=== PATIENT | female | born 1950 | race Caucasian/White ===

== ENCOUNTER 2019-10-31 10:27 | Outpatient (CLI) | payer MEDICARE, BC, SELFPAY ==
[2019-10-31 11:05] LABS: Alanine Aminotransferase 37 U/L (4-35); Albumin Level 4.3 g/dL (3.5-5.1); Alkaline Phosphatase 80 U/L (38-126); Aspartate Amino Transferase 35 U/L (14-36); Bilirubin,Total 0.3 mg/dL (0.2-1.3); Blood Urea Nitrogen 28 mg/dL (7-17); Calcium 9.4 mg/dL (8.4-10.2); Carbon Dioxide 25 mmol/L (22-30); Chloride 104 mmol/L (98-107); Cholesterol 183 mg/dL (0-200); Estimated Glomerular Filt Rate 44; Glucose 206 mg/dL (65-105); HDL Direct 41 mg/dL; Potassium 4.7 mmol/L (3.4-5.0); Sodium 136 mmol/L (137-145); Triglycerides 210 mg/dL (<150)
[2019-10-31 11:16] LABS: LDL Cholesterol Direct 109 mg/dL
[2019-10-31 11:17] LABS: Parathyroid Intact 60.8 pg/mL (7.5-53.5)
[2019-10-31 11:22] LABS: Creatinine Urine 130.2 mg/dL
[2019-10-31 11:29] LABS: MALB Creatinine Ratio 16.3 mg/g (0-30); Microalbumin Urine Random 21.2 mg/L (0-16.7)
[2019-11-02 15:23] LABS: Glutamic acid decarboxylase AA <5 IU/mL (<5)
[2019-11-04 21:56] LABS: Zinc Transporter 8 Antibody <10 U/mL (<15)
[2019-11-07 23:51] LABS: Islet Cell Antibody Screen NEGATIVE (NEGATIVE)
== END 2019-10-31 10:28 | disposition home or self-care (01) ==
PROVIDERS: PCP Internal Medicine; Visit Provider Internal Medicine Endocrinology, Diabetes & Metabolism
DX: E11.9 Type 2 diabetes mellitus without complications (principal); M85.80 Other specified disorders of bone density and structure, unspecified site
CPT/HCPCS: 36415; 80053; 80061; 82043; 82306; 83970; 84681; 86337; 86341

== ENCOUNTER 2020-02-16 14:56 | Outpatient (CLI) | payer MEDICARE, SELFPAY ==
--- NOTE | ~2020-02-16 | MM_ITS ---
EXAMINATION: MM screening wilma BI w ronny HISTORY: Screening TECHNIQUE: Craniocaudal and mediolateral oblique 3-D tomosynthesis images were obtained and synthetic 2-D images were generated. CAD analysis was submitted and interpreted. COMPARISON: Comparison to multiple prior studies sequentially, with oldest reviewed study dated 11/29. BREAST PARENCHYMAL COMPOSITION: There are scattered areas of fibroglandular density. FINDINGS: There is no evidence of suspicious mass, calcification, or architectural distortion to sugg est malignancy in either breast. There has been no suspicious interval change. IMPRESSION: 1. No mammographic evidence of malignancy. 2. Recommend routine screening mammography in one year. BI-RADS Category 1: Negative Reviewed, dictated and finalized at location A.
--- NOTE | ~2020-02-16 | DEXA_ITS ---
Bone Density Report Name: Stella Qureshi Age: 69 Sex: Female Ethnicity: White Date of : 1950 Indication: osteopenia; height loss; Referring Provider: Kristen Lafleur Study: Bone densitometry was performed. Exam Date: February 16, 2020 Accession number: [id number] Bone Density: Region BMD T-score Z-score Classification AP Spine (L1-L4) 1.056 0.1 2.3 Normal Femoral Neck (Left) 0.679 -1.5 0.4 Osteopenia Total Hip (Left) 0.689 -2.1 -0.5 Osteopenia Total Hip Bilateral Avg 0.718 -1.8 -0.3 Osteopenia Femoral Neck (Right) 0.581 -2.4 -0.5 Osteopenia Total Hip (Right) 0.747 -1.6 0.0 Osteopenia World Health Organization criteria for BMD impression classify patients as: Normal (T-score at or above -1.0), Osteopenia (T-score between -1.0 and -2.5), or Osteoporosis (T-score at or below -2.5). 10-year Fracture Risk(1): Major Osteoporotic Fracture 14% Hip Fracture 3.6% Reported Risk Factors: [place] (), Neck BMD=0.581, BMI=26.7 (1) FRAX(R) Version 3.08. Fracture probability calculated for an untreated patient. Fracture probability may be lower if the patient has received treatment. Previous Exams: Region Exam Age BMD T-score BMD Change BMD Change Date g/cm2 vs Baseline vs Previous AP Spine(L1-L4) 02/16/2020 69 1.056 0.1 0.089(9.2%)# 0.089(9.2%)# 02/07/2007 56 0.966 -0.7 Total Hip(Left) 02/16/2020 69 0.689 -2.1 0.013(1.9%)# 0.013(1.9%)# 02/07/2007 56 0.676 -2.2 Total Hip(Right) 02/16/2020 69 0.747 -1.6 0.045(6.4%)# 0.045(6.4%)# 02/07/2007 56 0.703 -2.0 *Denotes significance at 95% confidence level, LSC for AP Spine = 0.022 g/cm2, LSC for Total Hip = 0.027 g/cm2 Clinical Information Provided by Patient: Has used the following medications: Vitamin D, Calcium Patient maximum height was 64 Menopause Age: 48 No regular weight bearing exercise Onset of menses at age 12 Number of children 0 Impression: The patient has low bone mass, based on the Right Femoral Neck T-score. The patient has an estimated ten-year risk of hip fracture of 3.6% and an estimated ten-year risk of major fracture of 14%, based on the WHO FRAX algorithm. No significant bone loss was observed. Discussion: BONE DENSITY IS LOW AT ONE OR MORE SKELETAL SITES. THE PATIENT'S BMD AND CLINICAL RISK FACTORS CONTRIBUTE TO THIS PATIENT'S INCREASED RISK OF FRACTURE. This patient's lowest T-score is low at one or more skeletal sites. It meets the W
[2020-02-16 15:53] LABS: Anion Gap 8 mmol/L (8-16); Blood Urea Nitrogen 18 mg/dL (7-17); Calcium 9.4 mg/dL (8.4-10.2); Carbon Dioxide 27 mmol/L (22-30); Chloride 101 mmol/L (98-107); Estimated Glomerular Filt Rate 44; Glucose 211 mg/dL (65-105); Potassium 4.4 mmol/L (3.4-5.0); Sodium 136 mmol/L (137-145)
[2020-02-16 16:05] LABS: Parathyroid Intact 39.7 pg/mL (7.5-53.5)
== END 2020-02-16 14:57 | disposition home or self-care (01) ==
PROVIDERS: Internal Medicine Endocrinology, Diabetes & Metabolism; PCP Internal Medicine; Visit Provider Nurse Practitioner
DX: Z12.31 Encounter for screening mammogram for malignant neoplasm of breast (principal); M85.88 Other specified disorders of bone density and structure, other site; E11.9 Type 2 diabetes mellitus without complications; N17.9 Acute kidney failure, unspecified; R79.89 Other specified abnormal findings of blood chemistry
CPT/HCPCS: 36415; 77063; 77067; 77080; 80048; 83970

== ENCOUNTER 2020-05-28 09:10 | Outpatient (CLI) | payer MEDICARE, BC, SELFPAY ==
[2020-05-28 09:48] LABS: Basophils Percent Auto 0.4 % (0.2-1.2); Eosinophils Absolute Auto 0.1 K/mm3 (0-0.3); Eosinophils Percent Auto 1.2 % (0-4.4); Immature Granulocyte Absolute 0.02 K/mm3 (0.00-0.031); Immature Granulocyte Percent A 0.3 % (0-0.5); Lymphocytes Absolute Auto 1.22 K/mm3 (0.9-3.2); Lymphocytes Percent Auto 16.9 % (18.3-44.2); Mean Corpuscular HGB Conc 31.7 g/dl (32-36); Mean Corpuscular Hemoglobin 24.5 pg (26-34); Mean Corpuscular Volume 77.4 fl (80-100); Mean Platelet Volume 10.9 fl (7.4-10.4); Monocytes Absolute Auto 0.5 K/mm3 (0.1-0.6); Monocytes Percent Auto 6.6 % (2.6-8.5); Neutrophils Absolute Auto 5.4 K/mm3 (1.3-6.7); Neutrophils Percent Auto 74.6 % (45.5-73.1); Platelet Count Result 179 k/mm3 (150-375); Red Cell Distribution Width 14.4 % (11.5-14.5); White Blood Count 7.2 K/mm3 (4.5-10.0)
[2020-05-28 10:06] LABS: Anion Gap 5 mmol/L (8-16); Blood Urea Nitrogen 16 mg/dL (7-17); Calcium 9.6 mg/dL (8.4-10.2); Carbon Dioxide 32 mmol/L (22-30); Chloride 101 mmol/L (98-107); Estimated Glomerular Filt Rate 40; Glucose 188 mg/dL (65-105); Potassium 4.1 mmol/L (3.4-5.0); Sodium 138 mmol/L (137-145)
[2020-05-28 10:15] LABS: LDL Cholesterol Direct 140 mg/dL
[2020-05-28 10:16] LABS: Alanine Aminotransferase 35 U/L (4-35); Albumin Level 4.1 g/dL (3.5-5.1); Alkaline Phosphatase 70 U/L (38-126); Anion Gap 5 mmol/L (8-16); Aspartate Amino Transferase 37 U/L (14-36); Bilirubin,Total 0.4 mg/dL (0.2-1.3); Blood Urea Nitrogen 15 mg/dL (7-17); Calcium 9.7 mg/dL (8.4-10.2); Carbon Dioxide 32 mmol/L (22-30); Chloride 101 mmol/L (98-107); Cholesterol 222 mg/dL (0-200); Estimated Glomerular Filt Rate 40; Glucose 191 mg/dL (65-105); HDL Direct 39 mg/dL; Sodium 138 mmol/L (137-145); Triglycerides 247 mg/dL (<150)
[2020-05-28 10:21] LABS: Potassium 3.9 mmol/L (3.4-5.0)
[2020-05-28 10:53] LABS: Vitamin D 25 Hydroxy 57.8 ng/mL
== END 2020-05-28 09:11 | disposition home or self-care (01) ==
LOC: ANHLAB 09:13
PROVIDERS: Internal Medicine Endocrinology, Diabetes & Metabolism; PCP Internal Medicine; Visit Provider Nurse Practitioner
DX: M81.0 Age-related osteoporosis without current pathological fracture (principal); M85.80 Other specified disorders of bone density and structure, unspecified site; E78.2 Mixed hyperlipidemia; E11.9 Type 2 diabetes mellitus without complications
CPT/HCPCS: 36415; 80048; 80053; 80061; 82306; 85025

== ENCOUNTER 2020-07-17 09:14 | Outpatient (CLI) | payer MEDICARE, SELFPAY ==
[2020-07-17 10:04] LABS: Hematocrit 37.4 % (37.0-47.0); Hemoglobin 11.8 g/dL (12.0-15.0); Mean Corpuscular HGB Conc 31.6 g/dl (32-36); Mean Corpuscular Hemoglobin 24.2 pg (26-34); Mean Corpuscular Volume 76.6 fl (80-100); Mean Platelet Volume 10.4 fl (7.4-10.4); Platelet Count Result 156 k/mm3 (150-375); Red Blood Count 4.88 M/mm3 (4.2-5.4); Red Cell Distribution Width 15.6 % (11.5-14.5)
[2020-07-17 10:19] LABS: Albumin Level 3.9 g/dL (3.5-5.1); Anion Gap 8 mmol/L (8-16); Blood Urea Nitrogen 20 mg/dL (7-17); Calcium 10.5 mg/dL (8.4-10.2); Carbon Dioxide 29 mmol/L (22-30); Chloride 102 mmol/L (98-107); Estimated Glomerular Filt Rate 37; Glucose 149 mg/dL (65-105); Phosphorus 4.4 mg/dL (2.5-4.5); Potassium 4.2 mmol/L (3.4-5.0); Sodium 139 mmol/L (137-145)
[2020-07-17 10:27] LABS: Complement C3 142 mg/dL (88-165)
[2020-07-17 10:31] LABS: Parathyroid Intact 5.4 pg/mL (7.5-53.5)
[2020-07-17 10:35] LABS: Erythrocyte Sedimentation Rate 26 mm/hr (0-20)
[2020-07-17 10:51] LABS: Cortisol Random 8.69 ug/dL
[2020-07-17 16:15] LABS: Add Urine Microscopic? YES; Appearance Urine Clear (Clear); Bilirubin Urine Negative (Negative); Blood Urine Negative (Negative); Calcium Oxalate Crystals Urine Present /hpf; Color Urine Yellow (Yellow); Glucose Urine UA Negative (Negative); Hyaline Casts Urine 30-49 /lpf; Ketones Urine Negative (Negative); Leukocyte Esterase Ur Trace LEU/UL (NEGATIVE); Mucus Urine Rare /lpf; Nitrate Urine Negative (Negative); Protein Urine Negative (Negative); RBC Urine 0-2 /hpf (0-2); Specific Grav Ur 1.013 (1.001-1.035); Squamous Epithelial Cell Urine Occasional /hpf (Few); Urobilinogen Urine Negative mg/dL (<2.0)
[2020-07-17 17:42] LABS: Total Protein Urine Random 14 mg/dL
[2020-07-19 10:52] LABS: Kappa\\Lambda Light Chains 1.75 (0.26-1.65)
[2020-07-19 14:06] LABS: Complement Total CH50 >60 U/mL (31-60)
== END 2020-07-17 09:15 | disposition home or self-care (01) ==
PROVIDERS: PCP Internal Medicine; Referring Provider Internal Medicine; Visit Provider Internal Medicine Nephrology
DX: N18.32 Chronic kidney disease, stage 3b (principal); I95.1 Orthostatic hypotension; R53.83 Other fatigue
CPT/HCPCS: 36415; 80069; 81001; 81050; 82533; 83883; 83970; 84156; 84443; 85027; 85652; 86038; 86160; 86162; 86334

== ENCOUNTER 2020-07-20 10:04 | Outpatient (NON) | payer MEDICARE, BC, SELFPAY ==
[2020-08-07 10:03] LABS: Albumin 0 %; Creat 24 Hr 0.91 g/24 h (0.50-2.15); Measured Kappa Chains <0.40 mg/dL (<2.00); Measured Lambda Chains <0.40 mg/dL (<2.00)
== END 2020-07-20 10:05 ==
PROVIDERS: PCP Internal Medicine; Visit Provider Internal Medicine Nephrology
DX: N18.32 Chronic kidney disease, stage 3b (principal); I95.1 Orthostatic hypotension
CPT/HCPCS: 82570; 83883; 86335

== ENCOUNTER 2020-08-09 07:25 | Outpatient (CLI) | payer MEDICARE, BC, SELFPAY ==
--- NOTE | ~2020-08-09 | US_ITS ---
EXAMINATION: US renal BI EXAM DATE: 08/09/2020 08:00 INDICATION: Stage III kidney disease. TECHNIQUE: Multiple grayscale and Doppler images of the kidneys were obtained (by a technologist who performed the scan) and subsequently reviewed. Comparison is made to prior examination from 8. FINDINGS: There is bilateral renal cortical thinning. Right kidney: There is normal contour and echogenicity. It measures 8.6 x 4.6 x 4.4 centimeters. Th ere are no focal renal lesions identified. There is no hydronephrosis. Left kidney: There is normal contour and echogenicity. It measures 7.9 x 4.5 x 4.4 centimeters. The re are no focal renal lesions identified. There is no hydronephrosis. Bladder unremarkable. IMPRESSION: 1. Mild bilateral renal atrophy. Reviewed, dictated and finalized at location B. GER CONCRETE
[2020-08-09 08:33] LABS: Albumin Level 3.9 g/dL (3.5-5.1); Anion Gap 7 mmol/L (8-16); Blood Urea Nitrogen 19 mg/dL (7-17); Calcium 9.4 mg/dL (8.4-10.2); Carbon Dioxide 31 mmol/L (22-30); Chloride 101 mmol/L (98-107); Estimated Glomerular Filt Rate 44; Glucose 148 mg/dL (65-105); Phosphorus 3.4 mg/dL (2.5-4.5); Potassium 4.4 mmol/L (3.4-5.0); Sodium 139 mmol/L (137-145)
[2020-08-14 05:05] LABS: Angiotensin Converting Enzyme 39 U/L (9-67)
== END 2020-08-09 07:26 | disposition home or self-care (01) ==
PROVIDERS: PCP Internal Medicine; Visit Provider Internal Medicine Nephrology
DX: N18.32 Chronic kidney disease, stage 3b (principal)
CPT/HCPCS: 36415; 76775; 80069; 82164

== ENCOUNTER 2020-09-25 08:31 | Outpatient (CLI) | payer MEDICARE, SELFPAY | END 2020-09-25 08:32 | disposition home or self-care (01) | LOC: ANHCOVIDVC 08:31 | PROVIDERS: PCP Internal Medicine | DX: Z23 Encounter for immunization (principal) | CPT/HCPCS: 0001A; 91300 ==

== ENCOUNTER 2020-10-08 15:02 | Outpatient (CLI) | payer MEDICARE, SELFPAY ==
[2020-10-08 16:04] LABS: Hematocrit 36.7 % (37.0-47.0); Hemoglobin 11.4 g/dL (12.0-15.0); Mean Corpuscular HGB Conc 31.1 g/dl (32-36); Mean Corpuscular Hemoglobin 24.1 pg (26-34); Mean Corpuscular Volume 77.4 fl (80-100); Mean Platelet Volume 10.3 fl (7.4-10.4); Platelet Count Result 143 k/mm3 (150-375); Red Blood Count 4.74 M/mm3 (4.2-5.4); White Blood Count 7.9 K/mm3 (4.5-10.0)
[2020-10-08 16:09] LABS: Add Urine Microscopic? YES; Appearance Urine Clear (Clear); Bilirubin Urine Negative (Negative); Blood Urine Negative (Negative); Color Urine Straw (Yellow); Glucose Urine UA Negative (Negative); Ketones Urine Negative (Negative); Leukocyte Esterase Ur Trace LEU/UL (Negative); Mucus Urine Rare /lpf; Nitrate Urine Negative (Negative); Protein Urine Negative (Negative); RBC Urine 0-2 /hpf (0-2); Squamous Epithelial Cell Urine Occasional /hpf (Few); Urobilinogen Urine Negative mg/dL (<2.0); WBC Urine 0-3 /hpf
[2020-10-08 16:20] LABS: Complement C3 130 mg/dL (88-165)
[2020-10-08 16:39] LABS: Erythrocyte Sedimentation Rate 24 mm/hr (0-20)
[2020-10-08 16:44] LABS: Cortisol Random 4.55 ug/dL
[2020-10-08 16:57] LABS: Anion Gap 5 mmol/L (8-16); Blood Urea Nitrogen 19 mg/dL (7-17); Calcium 9.3 mg/dL (8.4-10.2); Carbon Dioxide 28 mmol/L (22-30); Chloride 104 mmol/L (98-107); Estimated Glomerular Filt Rate 44; Glucose 122 mg/dL (65-105); Phosphorus 3.6 mg/dL (2.5-4.5); Potassium 4.4 mmol/L (3.4-5.0); Sodium 137 mmol/L (137-145)
[2020-10-08 17:08] LABS: Creatinine Urine 65.1 mg/dL; Total Protein Urine Random 12 mg/dL; Ur Ttl Prot Creatinine Ratio 0.18 mg/mg (0-0.20)
[2020-10-08 17:12] LABS: Parathyroid Intact 32.8 pg/mL (7.5-53.5)
[2020-10-08 17:30] LABS: Thyroid Stimulating Hormone 0.931 uIU/mL (0.465-4.680)
[2020-10-10 10:32] LABS: Complement Total CH50 >60 U/mL (31-60)
[2020-10-10 23:16] LABS: Kappa\\Lambda Light Chains 1.35 (0.26-1.65); Lambda Light Chain 30.2 mg/L (5.7-26.3)
== END 2020-10-08 15:03 | disposition home or self-care (01) ==
PROVIDERS: PCP Internal Medicine; Visit Provider Internal Medicine Nephrology
DX: N18.32 Chronic kidney disease, stage 3b (principal); I95.1 Orthostatic hypotension; R53.83 Other fatigue
CPT/HCPCS: 36415; 80069; 81001; 82533; 82570; 83883; 83970; 84156; 84443; 85027; 85652; 86038; 86160; 86162; 86334

== ENCOUNTER 2020-10-10 08:56 | Outpatient (CLI) | payer MEDICARE, SELFPAY | END 2020-10-10 08:57 | disposition home or self-care (01) | LOC: ANHLAB 08:58 | PROVIDERS: PCP Internal Medicine; Visit Provider Internal Medicine Nephrology | DX: N18.32 Chronic kidney disease, stage 3b (principal); I95.1 Orthostatic hypotension | CPT/HCPCS: 86335 ==

== ENCOUNTER 2020-10-16 08:26 | Outpatient (CLI) | payer MEDICARE, BC, SELFPAY | END 2020-10-16 08:27 | LOC: ANHCOVIDVC 08:27 | PROVIDERS: PCP Internal Medicine | DX: Z23 Encounter for immunization (principal) | CPT/HCPCS: 0002A; 91300 ==

== ENCOUNTER 2020-10-29 08:12 | Outpatient (CLI) | payer MEDICARE, SELFPAY | END 2020-10-29 08:13 | disposition home or self-care (01) | LOC: ANHVASCINF 08:15 | PROVIDERS: PCP Internal Medicine; Visit Provider Internal Medicine Nephrology | DX: R94.7 Abnormal results of other endocrine function studies (principal); I95.1 Orthostatic hypotension | CPT/HCPCS: 36415; 82533; 96372; J0834 ==

== ENCOUNTER 2021-02-26 08:51 | Outpatient (CLI) | payer MEDICARE, SELFPAY ==
[2021-02-26 09:44] LABS: Hematocrit 41.2 % (37.0-47.0); Hemoglobin 12.7 g/dL (12.0-15.0); Mean Corpuscular HGB Conc 30.8 g/dl (32-36); Mean Corpuscular Hemoglobin 23.9 pg (26-34); Mean Corpuscular Volume 77.4 fl (80-100); Mean Platelet Volume 10.2 fl (7.4-10.4); Platelet Count Result 174 k/mm3 (150-375); Red Blood Count 5.32 M/mm3 (4.2-5.4); Red Cell Distribution Width 16.2 % (11.5-14.5); White Blood Count 8.9 K/mm3 (4.5-10.0)
[2021-02-26 10:11] LABS: Total Protein Urine Random 12 mg/dL; Ur Ttl Prot Creatinine Ratio 0.19 mg/mg (0-0.20)
[2021-02-26 10:16] LABS: Albumin Level 4.4 g/dL (3.5-5.1); Anion Gap 10 mmol/L (8-16); Blood Urea Nitrogen 18 mg/dL (7-17); Calcium 9.9 mg/dL (8.4-10.2); Carbon Dioxide 27 mmol/L (22-30); Chloride 105 mmol/L (98-107); Estimated Glomerular Filt Rate 44; Glucose 118 mg/dL (65-110); Potassium 4.7 mmol/L (3.4-5.0); Sodium 142 mmol/L (137-145)
[2021-02-26 10:26] LABS: Parathyroid Intact 83.9 pg/mL (7.5-53.5)
== END 2021-02-26 08:52 | disposition home or self-care (01) ==
PROVIDERS: PCP Internal Medicine; Visit Provider Internal Medicine Nephrology
DX: N18.32 Chronic kidney disease, stage 3b (principal)
CPT/HCPCS: 36415; 80069; 82570; 83970; 84156; 85027

== ENCOUNTER 2021-06-18 09:27 | Outpatient (CLI) | payer MEDICARE, SELFPAY ==
[2021-06-18 09:55] LABS: Basophils Percent Auto 0.4 % (0.2-1.2); Eosinophils Absolute Auto 0.1 K/mm3 (0-0.3); Hematocrit 38.7 % (37.0-47.0); Hemoglobin 12.3 g/dL (12.0-15.0); Immature Granulocyte Absolute 0.04 K/mm3 (0.00-0.031); Immature Granulocyte Percent A 0.5 % (0-0.5); Lymphocytes Absolute Auto 1.75 K/mm3 (0.9-3.2); Lymphocytes Percent Auto 20.9 % (18.3-44.2); Mean Corpuscular HGB Conc 31.8 g/dl (32-36); Mean Corpuscular Hemoglobin 24.2 pg (26-34); Mean Corpuscular Volume 76.2 fl (80-100); Mean Platelet Volume 9.9 fl (7.4-10.4); Monocytes Absolute Auto 0.5 K/mm3 (0.1-0.6); Monocytes Percent Auto 5.4 % (2.6-8.5); Neutrophils Percent Auto 71.8 % (45.5-73.1); Platelet Count Result 163 k/mm3 (150-375); Red Blood Count 5.08 M/mm3 (4.2-5.4); Red Cell Distribution Width 15.6 % (11.5-14.5); White Blood Count 8.4 K/mm3 (4.5-10.0)
[2021-06-18 10:03] LABS: Cholesterol 140 mg/dL (0-200); HDL Direct 39 mg/dL; Triglycerides 110 mg/dL (<150)
[2021-06-18 10:04] LABS: Alanine Aminotransferase 32 U/L (4-35); Albumin Level 4.1 g/dL (3.5-5.1); Alkaline Phosphatase 87 U/L (38-126); Anion Gap 10 mmol/L (8-16); Aspartate Amino Transferase 34 U/L (14-36); Bilirubin,Total 0.5 mg/dL (0.2-1.3); Blood Urea Nitrogen 15 mg/dL (7-17); Calcium 9.5 mg/dL (8.4-10.2); Carbon Dioxide 29 mmol/L (22-30); Chloride 102 mmol/L (98-107); Estimated Glomerular Filt Rate 44; Glucose 102 mg/dL (65-110); Potassium 4.1 mmol/L (3.4-5.0); Sodium 141 mmol/L (137-145)
[2021-06-18 10:23] LABS: LDL Cholesterol Direct 75 mg/dL
[2021-06-18 10:34] LABS: Iron 41 ug/dL (37-170)
[2021-06-18 10:44] LABS: Percent Iron Saturation 11 % (20-50)
== END 2021-06-18 09:28 | disposition home or self-care (01) ==
PROVIDERS: PCP Internal Medicine; Referring Provider Clinical Nurse Specialist; Visit Provider Internal Medicine Endocrinology, Diabetes & Metabolism
DX: I10 Essential (primary) hypertension (principal); N18.32 Chronic kidney disease, stage 3b; E11.21 Type 2 diabetes mellitus with diabetic nephropathy; E11.9 Type 2 diabetes mellitus without complications; R42 Dizziness and giddiness; E11.65 Type 2 diabetes mellitus with hyperglycemia; M85.851 Other specified disorders of bone density and structure, right thigh; M85.852 Other specified disorders of bone density and structure, left thigh; R79.89 Other specified abnormal findings of blood chemistry
CPT/HCPCS: 36415; 80053; 80061; 82306; 82607; 82728; 83540; 83550; 85025

== ENCOUNTER 2021-08-19 15:27 | Outpatient (CLI) | payer MEDICARE, SELFPAY ==
[2021-08-19 16:24] LABS: Hematocrit 35.1 % (37.0-47.0); Hemoglobin 10.7 g/dL (12.0-15.0); Mean Corpuscular HGB Conc 30.5 g/dl (32-36); Mean Corpuscular Hemoglobin 23.9 pg (26-34); Mean Corpuscular Volume 78.3 fl (80-100); Mean Platelet Volume 10.5 fl (7.4-10.4); Platelet Count Result 148 k/mm3 (150-375); Red Blood Count 4.48 M/mm3 (4.2-5.4); Red Cell Distribution Width 15.4 % (11.5-14.5); White Blood Count 7.1 K/mm3 (4.5-10.0)
[2021-08-19 16:33] LABS: Creatinine Urine 60.7 mg/dL; Total Protein Urine Random 13 mg/dL; Ur Ttl Prot Creatinine Ratio 0.21 mg/mg (0-0.20)
[2021-08-19 16:38] LABS: Albumin Level 3.8 g/dL (3.5-5.1); Anion Gap 8 mmol/L (8-16); Blood Urea Nitrogen 17 mg/dL (7-17); Carbon Dioxide 28 mmol/L (22-30); Chloride 102 mmol/L (98-107); Estimated Glomerular Filt Rate 49; Glucose 170 mg/dL (65-110); Phosphorus 3.6 mg/dL (2.5-4.5); Potassium 4.1 mmol/L (3.4-5.0); Sodium 138 mmol/L (137-145)
[2021-08-19 16:49] LABS: Parathyroid Intact 45.3 pg/mL (7.5-53.5)
== END 2021-08-19 15:28 | disposition home or self-care (01) ==
LOC: ANHLAB 15:30
PROVIDERS: PCP Internal Medicine; Visit Provider Internal Medicine Nephrology
DX: N18.32 Chronic kidney disease, stage 3b (principal)
CPT/HCPCS: 36415; 80069; 82570; 83970; 84156; 85027

== ENCOUNTER 2022-02-24 15:21 | Outpatient (CLI) | payer MEDICARE, SELFPAY ==
[2022-02-24 15:59] LABS: Hematocrit 38.8 % (37.0-47.0); Hemoglobin 11.8 g/dL (12.0-15.0); Mean Corpuscular HGB Conc 30.4 g/dl (32-36); Mean Corpuscular Hemoglobin 23.2 pg (26-34); Mean Corpuscular Volume 76.4 fl (80-100); Mean Platelet Volume 9.7 fl (7.4-10.4); Platelet Count Result 159 k/mm3 (150-375); Red Blood Count 5.08 M/mm3 (4.2-5.4); Red Cell Distribution Width 16.3 % (11.5-14.5); White Blood Count 8.2 K/mm3 (4.5-10.0)
[2022-02-24 16:07] LABS: Creatinine Urine 64.4 mg/dL; Total Protein Urine Random 10 mg/dL; Ur Ttl Prot Creatinine Ratio 0.16 mg/mg (0-0.20)
[2022-02-24 16:09] LABS: Albumin Level 4.3 g/dL (3.5-5.1); Anion Gap 14 mmol/L (8-16); Blood Urea Nitrogen 20 mg/dL (7-17); Calcium 9.1 mg/dL (8.4-10.2); Carbon Dioxide 27 mmol/L (22-30); Chloride 101 mmol/L (98-107); Estimated Glomerular Filt Rate 49; Glucose 79 mg/dL (65-110); Phosphorus 3.5 mg/dL (2.5-4.5); Potassium 4.6 mmol/L (3.4-5.0); Sodium 142 mmol/L (137-145)
== END 2022-02-24 15:22 | disposition home or self-care (01) ==
LOC: ANHLAB 15:23
PROVIDERS: PCP Internal Medicine; Visit Provider Internal Medicine Nephrology
DX: N18.31 Chronic kidney disease, stage 3a (principal)
CPT/HCPCS: 36415; 80069; 82570; 83970; 84156; 85027

== ENCOUNTER 2022-03-04 15:00 | Outpatient (CLI) | payer MEDICARE, SELFPAY ==
[2022-03-04 15:28] LABS: Appearance Urine Slightly Cloudy (Clear); Bilirubin Urine Negative (Negative); Blood Urine Negative (Negative); Color Urine Yellow (Yellow); Glucose Urine UA Negative (Negative); Ketones Urine Negative (Negative); Leukocyte Esterase Ur Trace LEU/UL (Negative); Nitrate Urine Negative (Negative); Protein Urine Negative (Negative); Specific Grav Ur 1.015 (1.001-1.035); Urobilinogen Urine 0.2 mg/dL (<2.0)
[2022-03-04 15:35] LABS: Bacteria Urine Trace /hpf; Mucus Urine Rare /lpf; RBC Urine 0-2 /hpf (0-2); Squamous Epithelial Cell Urine Rare /hpf (Few)
[2022-03-04 15:38] LABS: Add Urine Microscopic? YES
== END 2022-03-04 15:01 | disposition home or self-care (01) ==
PROVIDERS: PCP Internal Medicine; Visit Provider Internal Medicine Nephrology
DX: N18.31 Chronic kidney disease, stage 3a (principal)
CPT/HCPCS: 81001

== ENCOUNTER 2022-03-17 15:35 | Outpatient (CLI) | payer MEDICARE, SELFPAY ==
[2022-03-17 16:09] LABS: Appearance Urine Clear (Clear); Bilirubin Urine Negative (Negative); Blood Urine Negative (Negative); Color Urine Yellow (Yellow); Glucose Urine UA Negative (Negative); Ketones Urine Negative (Negative); Leukocyte Esterase Ur 1+ LEU/UL (Negative); Nitrate Urine Negative (Negative); Protein Urine Negative (Negative); Specific Grav Ur 1.015 (1.001-1.035); Urobilinogen Urine 0.2 mg/dL (<2.0)
[2022-03-17 16:21] LABS: Mucus Urine Rare /lpf; RBC Urine 0-2 /hpf (0-2); Squamous Epithelial Cell Urine Occasional /hpf (Few)
[2022-03-17 16:22] LABS: Add Urine Microscopic? YES
== END 2022-03-17 15:36 | disposition home or self-care (01) ==
PROVIDERS: PCP Internal Medicine; Visit Provider Internal Medicine Nephrology
DX: N39.0 Urinary tract infection, site not specified (principal)
CPT/HCPCS: 81001; 87086

== ENCOUNTER 2022-05-19 10:00 | Outpatient (CLI) | payer MEDICARE, SELFPAY ==
--- NOTE | ~2022-05-19 | DEXA_ITS ---
Bone Density Report Name: JUAN C GUTIERREZ Age: 72 Sex: Female Ethnicity: White Date of : 1950 Indication: osteopenia; height loss;postmenopausal Referring Provider: SAMANTHA TAMEZ Study: Bone densitometry was performed. Exam Date: May 19, 2022 Accession number: [id number] Bone Density: Region BMD T-score Z-score Classification AP Spine(L1-L4) 0.948 -0.9 1.4 Normal Femoral Neck (Left) 0.643 -1.9 0.2 Osteopenia Total Hip (Left) 0.673 -2.2 -0.5 Osteopenia Femoral Neck (Right) 0.567 -2.5 -0.5 Osteoporosis Total Hip (Right) 0.656 -2.3 -0.6 Osteopenia Total Hip Mean 0.665 -2.3 -0.6 Osteopenia World Health Organization criteria for BMD impression classify patients as: Normal (T-score at or above -1.0), Osteopenia (T-score between -1.0 and -2.5), or Osteoporosis (T-score at or below -2.5). 10-year Fracture Risk: FRAX not reported because: Some T-score for Spine Total or Hip Total or Femoral Neck at or below -2.5 Previous Exams: Region Exam Age BMD T-score BMD Change BMD Change Date g/cm2 vs Baseline vs Previous AP Spine (L1-L4) 05/19/2022 72 0.948 -0.9 -0.108 (-10.2% -0.108 (-10.2% 02/16/2020 69 1.056 0.1 Total Hip(Left) 05/19/2022 72 0.673 -2.2 -0.016 (-2.4%) -0.016 (-2.4%) 02/16/2020 69 0.689 -2.1 Total Hip(Right) 05/19/2022 72 0.656 -2.3 -0.091 (-12.2% -0.091 (-12.2% 02/16/2020 69 0.747 -1.6 *Denotes significance at 95% confidence level, LSC for AP Spine = 0.022 g/cm2, LSC for Total Hip = 0.027 g/cm2 Clinical Information Provided by Patient: Has used the following medications: Calcium Patient maximum height was 64 Menopause Age: 48 No regular weight bearing exercise Onset of menses at age 12 Number of children 0 Impression: The patient has osteoporosis, based on the Right Femoral Neck T-score. The BMD for the AP Spine (L1-L4) decreased, changing by -10.2% since the last DXA exam. The BMD for the Total Hip(Right) decreased, changing by -12.2% since the last DXA exam. Discussion: INCREASED RISK OF FRACTURE. BONE DENSITY IS UNDESIRABLY LOW AT ONE OR MORE SKELETAL SITES, CONSISTENT WITH POSTMENOPAUSAL OSTEOPOROSIS. This patient's lowest T-score meets the World Health Organization's (WHO) criteria for osteoporosis at one or more sites (T-score -2.5 or below). In untreated patients, the risk of osteoporotic fracture increases approximately two-fold for each 1.0 SD decrease in T-score. Low bone density is no
== END 2022-05-19 10:01 | disposition home or self-care (01) ==
PROVIDERS: PCP Internal Medicine; Visit Provider Internal Medicine Endocrinology, Diabetes & Metabolism
DX: Z78.0 Asymptomatic menopausal state (principal); M85.851 Other specified disorders of bone density and structure, right thigh; M85.852 Other specified disorders of bone density and structure, left thigh; M81.0 Age-related osteoporosis without current pathological fracture
CPT/HCPCS: 77080

== ENCOUNTER 2022-08-25 15:40 | Outpatient (CLI) | payer MEDICARE, SELFPAY ==
[2022-08-25 16:09] LABS: Hematocrit 40.3 % (37.0-47.0); Hemoglobin 12.5 g/dL (12.0-15.0); Mean Corpuscular Hemoglobin 23.6 pg (26-34); Mean Platelet Volume 9.8 fl (7.4-10.4); Platelet Count Result 152 k/mm3 (150-375); Red Cell Distribution Width 15.4 % (11.5-14.5); White Blood Count 7.5 K/mm3 (4.5-10.0)
[2022-08-25 16:28] LABS: Creatinine Urine 90.1 mg/dL; Total Protein Urine Random 15 mg/dL; Ur Ttl Prot Creatinine Ratio 0.17 mg/mg (0-0.20)
[2022-08-25 16:35] LABS: Albumin Level 4.5 g/dL (3.5-5.1); Anion Gap 3 mmol/L (8-16); Blood Urea Nitrogen 20 mg/dL (7-17); Calcium 9.4 mg/dL (8.4-10.2); Carbon Dioxide 31 mmol/L (22-30); Chloride 99 mmol/L (98-107); Estimated Glomerular Filt Rate 54; Glucose 150 mg/dL (65-110); Phosphorus 3.5 mg/dL (2.5-4.5); Potassium 4.6 mmol/L (3.4-5.0); Sodium 133 mmol/L (137-145)
[2022-08-25 16:36] LABS: Parathyroid Intact 56.9 pg/mL (7.5-53.5)
[2022-08-25 16:48] LABS: Creatinine Urine 88.7 mg/dL
[2022-08-25 16:53] LABS: MALB Creatinine Ratio 55.7 mg/g (0-30); Microalbumin Urine Random 49.4 mg/L (0-16.7)
[2022-08-25 17:04] LABS: Free T4 Free Thyroxine 1.79 ng/mL (0.78-2.19); Vitamin D 25 Hydroxy 67.4 ng/mL
[2022-08-25 18:36] LABS: LDL Cholesterol Direct 86 mg/dL
[2022-08-25 18:37] LABS: Alanine Aminotransferase 37 U/L (6-35); Albumin Level 4.4 g/dL (3.5-5.1); Alkaline Phosphatase 84 U/L (38-126); Anion Gap 7 mmol/L (8-16); Aspartate Amino Transferase 35 U/L (14-36); Bilirubin,Total 0.5 mg/dL (0.2-1.3); Blood Urea Nitrogen 20 mg/dL (7-17); Calcium 9.4 mg/dL (8.4-10.2); Carbon Dioxide 28 mmol/L (22-30); Chloride 101 mmol/L (98-107); Cholesterol 164 mg/dL (0-200); Estimated Glomerular Filt Rate 49; Glucose 150 mg/dL (65-110); HDL Direct 44 mg/dL; Potassium 4.5 mmol/L (3.4-5.0); Sodium 136 mmol/L (137-145); Triglycerides 128 mg/dL (<150)
[2022-08-25 18:56] LABS: Thyroid Stimulating Hormone 0.982 uIU/mL (0.465-4.680)
== END 2022-08-25 15:41 | disposition home or self-care (01) ==
PROVIDERS: PCP Internal Medicine; Visit Provider Nurse Practitioner Family
DX: E11.65 Type 2 diabetes mellitus with hyperglycemia (principal); E11.69 Type 2 diabetes mellitus with other specified complication; E78.5 Hyperlipidemia, unspecified; M85.80 Other specified disorders of bone density and structure, unspecified site; R79.89 Other specified abnormal findings of blood chemistry; I12.9 Hypertensive chronic kidney disease with stage 1 through stage 4 chronic kidney disease, or unspecified chronic kidney disease; N18.31 Chronic kidney disease, stage 3a
CPT/HCPCS: 36415; 80053; 80061; 80069; 82043; 82306; 82570; 82607; 83970; 84156; 84439; 84443; 85027

== ENCOUNTER 2023-02-12 09:43 | Outpatient (CLI) | payer MEDICARE, SELFPAY ==
[2023-02-12 10:59] LABS: Hematocrit 40.5 % (37.0-47.0); Hemoglobin 12.1 g/dL (12.0-15.0); Mean Corpuscular HGB Conc 29.9 g/dl (32-36); Mean Corpuscular Hemoglobin 23.5 pg (26-34); Mean Corpuscular Volume 78.8 fl (80-100); Mean Platelet Volume 10.8 fl (7.4-10.4); Platelet Count Result 156 k/mm3 (150-375); Red Blood Count 5.14 M/mm3 (4.2-5.4); Red Cell Distribution Width 15.8 % (11.5-14.5); White Blood Count 7.4 K/mm3 (4.5-10.0)
[2023-02-12 11:07] LABS: Creatinine Urine 66.1 mg/dL; Total Protein Urine Random 11 mg/dL; Ur Ttl Prot Creatinine Ratio 0.17 mg/mg (0-0.20)
[2023-02-12 11:19] LABS: Albumin Level 4.1 g/dL (3.5-5.1); Anion Gap 6 mmol/L (8-16); Blood Urea Nitrogen 18 mg/dL (7-17); Calcium 9.2 mg/dL (8.4-10.2); Carbon Dioxide 31 mmol/L (22-30); Chloride 101 mmol/L (98-107); Estimated Glomerular Filt Rate 49; Glucose 181 mg/dL (65-110); Phosphorus 3.5 mg/dL (2.5-4.5); Potassium 4.2 mmol/L (3.4-5.0); Sodium 138 mmol/L (137-145)
[2023-02-12 11:22] LABS: Parathyroid Intact 55.7 pg/mL (7.5-53.5)
== END 2023-02-12 09:44 | disposition home or self-care (01) ==
PROVIDERS: PCP Nurse Practitioner; Visit Provider Internal Medicine Nephrology
DX: N18.32 Chronic kidney disease, stage 3b (principal)
CPT/HCPCS: 36415; 80069; 82570; 83970; 84156; 85027

== ENCOUNTER 2023-07-30 00:02 | Day surgery (SDC) | payer MEDICARE, SELFPAY ==
[2023-07-30] VITALS (17 sets, daily range): BP systolic 109–147; BP diastolic 53–69; PULSE 82–90; RESP 12–17; TEMP 36.4; O2SAT 93–99; BMI 24.1
[2023-07-30 07:29] LABS: Basophils Absolute Auto 0.1 K/mm3 (0.0-0.1); Basophils Percent Auto 0.6 % (0.2-1.2); Eosinophils Absolute Auto 0.1 K/mm3 (0-0.3); Eosinophils Percent Auto 0.6 % (0-4.4); Hemoglobin 12.3 g/dL (12.0-15.0); Immature Granulocyte Absolute 0.03 K/mm3 (0.00-0.031); Immature Granulocyte Percent A 0.4 % (0-0.5); Lymphocytes Absolute Auto 1.38 K/mm3 (0.9-3.2); Lymphocytes Percent Auto 16.8 % (18.3-44.2); Mean Corpuscular Hemoglobin 23.2 pg (26-34); Mean Corpuscular Volume 77.2 fl (80-100); Mean Platelet Volume 10.9 fl (7.4-10.4); Monocytes Absolute Auto 0.4 K/mm3 (0.1-0.6); Monocytes Percent Auto 5.4 % (2.6-8.5); Neutrophils Absolute Auto 6.3 K/mm3 (1.3-6.7); Neutrophils Percent Auto 76.2 % (45.5-73.1); Platelet Count Result 150 k/mm3 (150-375); Red Blood Count 5.31 M/mm3 (4.2-5.4); Red Cell Distribution Width 15.9 % (11.5-14.5); White Blood Count 8.2 K/mm3 (4.5-10.0)
[2023-07-30 07:47] LABS: Anion Gap 8 mmol/L (8-16); Blood Urea Nitrogen 16 mg/dL (7-17); Calcium 9.8 mg/dL (8.4-10.2); Carbon Dioxide 30 mmol/L (22-30); Chloride 103 mmol/L (98-107); Estimated CRCL calculation 32 ml/min; Estimated Glomerular Filt Rate 48; Glucose 118 mg/dL (65-110); Sodium 141 mmol/L (137-145)
[2023-07-30 07:58] LABS: Potassium 3.9 mmol/L (3.4-5.0)
--- NOTE | 2023-07-30 09:25 | WPDMODSED ---
Moderate Sedation Note-Pt Data Patient Data Diagnosis: Exertional dyspnea abnormal nuclear stress test Present Complaint: shortness of breath Procedure to be performed/Plan: left heart catheterization Allergies Allergy/AdvReac Type Severity Reaction Status Date / Time ampicillin Allergy Severe Anaphylactic Verified 07/30/23 07:15 Shock lincomycin Allergy Severe Anaphylactic Verified 07/30/23 07:15 Shock Penicillins Allergy Unknown Unknown Verified 07/30/23 07:15 Home Medications Medication Instructions Recorded Confirmed Type aspirin 81 mg tablet,delayed 81 mg PO DAILY 10/31/19 07/30/23 History release (Adult Aspirin Regimen) cholecalciferol (vitamin D3) 25 25 mcg PO DAILY 02/05/20 07/30/23 History mcg (1,000 unit) capsule fexofenadine 180 mg tablet 180 mg PO DAILY 08/19/20 07/02/23 History (Holley Allergy) dexamethasone 0.5 mg/5 mL oral 0.5 mg PO .COMPLEX 10/20/22 07/30/23 History elixir mecobalamin (vitamin B12) 1,000 1,000 mcg PO DAILY 10/20/22 07/30/23 History mcg chewable tablet metformin 1,000 mg tablet 1,000 mg PO DAILY #90 tabs 10/20/22 07/30/23 Rx semaglutide 1 mg/dose (4 mg/3 mL) 1 mg (0.75 mL) subcut WEEKLY #6 mL 10/20/22 07/30/23 Rx subcutaneous pen injector (Ozempic) isosorbide mononitrate 30 mg 60 mg PO DAILY 01/19/23 07/02/23 History tablet,extended release 24 hr carvedilol 3.125 mg tablet 3.125 mg PO Q12H 03/02/23 07/30/23 History atorvastatin 40 mg tablet 40 mg PO DAILY #90 tabs 03/31/23 07/30/23 Rx glimepiride 2 mg tablet See Rx Instructions .Route 05/24/23 07/30/23 Rx .COMPLEX #90 tabs icosapent ethyl 1 gram capsule 2 g PO DAILY 07/02/23 07/30/23 History Current Medications: Active Medications Sodium Chloride (Normal Saline Iv) 500 mls @ 150 mls/hr IV CONT .Q3H20M RADAMES Sedation/Anesthesia: No previous sedation/anesthesia problems (including family history). [facility] Past Medical History Medical History Allergies Anemia Asthma Cataracts, bilateral Chicken pox Chronic kidney disease (CKD) stage G3b/A1, moderately decreased glomerular filtration rate (GFR) between 30-44 mL/min/1.73 square meter and albuminuria creatinine ratio less than 30 mg/g Depression Dyslipidemia associated with type 2 diabetes mellitus Elevated liver enzymes Glaucoma Hepatic steatosis High serum parathyroid hormone (PTH) Hypertension Lichen planus Mcgovern's neuroma Obesity Osteopenia of multiple sites Psoriasis Transaminitis Type 2 diabetes mellitus with hyperglycemia, without long-term current use of insulin Uses hearing aid Vitamin D deficiency Surgical History Surgical History H/O sebaceous cyst removed on right church at 17 y/o History of cataract surgery History of tonsillectomy Hx of dilation and curettage Family History Family History (Updated 07/02/23 @ 08:17 by Rosalina Okeefe [facility]) Sibling Diabetes mellitus all siblings now have diabetes Cerebrovascular accident Father Brain tumor Emphysema of lung Mother Lung disease Heart disease Other Alcoholism Cancer Carotid artery disease Cataracts, bilateral Glaucoma Hepatitis Hypertension Substance abuse Vision loss Social History Social History Smoking status: Never smoker Alcohol intake: never Substance use: never Lack of Transportation: No Lack of Food: Never True Current Housing: I Have Housing Concerned About Future Housing: No Difficulty Paying Gas/Electric Bills: No Difficulty Paying for Meds: No Currently Unemployed: No Education: Master's Degree or Higher Difficulty w/ Childcare or Family Care: No Gender identity (if verbalized by the patient): Female Mod Sed Physical Exam Physical Exam Pre Procedural Exam: Normal: Appearance, Neck, Throat, Airway, Lungs, Heart Size, Hea
--- NOTE | 2023-07-30 10:10 | WPDCARDPROC ---
Cardiac Cath Procedure Note Date of procedure:: 07/30/23 Performing physician:: George Rivera MD Indication:: Exertional dyspnea abnormal nuclear stress test Brief clinical history:: this is a 73-year-old woman without previous history of coronary disease who has been experiencing symptoms of exertional dyspnea. A nuclear stress test was performed to evaluate this which demonstrated evidence of lateral ischemia. Following this coronary angiography has been recommended. Procedure Procedure performed:: Coronary angiography left ventriculography Sedation/Medication given:: fentanyl 50 mg Versed 2 mg case start time 9:52 a.m. case end time 10:08 a.m. sedation provided by Iris Kuhn RN trained observer Access site:: right femoral artery Estimated blood loss:: 20 cc Procedure note:: patient was brought to the cardiac catheterization lab in the postabsorptive state where the right femoral triangle was prepared and draped in the usual fashion. Anesthesia was provided with 1% lidocaine infiltrated locally. Using the modified Seldinger technique a 5 [place] vascular sheath was placed into the right femoral artery. After this left heart catheterization was carried out. I used a 5 [place] FL4 catheter in the aortic root but was unable to engage the penis the aorta was small in caliber. The FL 3.5 catheter was then used to engage and inject the coronary artery in multiple projections. Following this a 5 [place] JR4 catheter was used to engage and inject the right coronary artery. following this a 5 [place] angled pigtail catheter was used to measure left-sided hemodynamics and to inject LV g in the ALBRECHT projection. Following this the case was terminated. An angiogram was done of the femoral artery through the sheath after which it was determined the sheath would be removed with direct manual compression site of the access was not suitable for Angio-Seal. The patient tolerated procedure well there were no apparent complications there was no evidence of groin hematoma upon departure from the cardiac catheterization lab. Findings:: Hemodynamics: Central aortic pressure is 122 over 54 left ventricle 126/2 end-diastolic pressure 14 there is no gradient on pullback across the aortic valve. Left ventricle: The left ventricle is normal in size all segments contract very well the global ejection fraction is visually estimated to be 65-70%. The mitral valve is competent. The left main coronary artery is short but widely patent the left anterior descending is a medium caliber artery proximally and then in the midportion down to the apex becomes small in caliber and rather tortuous. Angiographically however there is no coronary artery disease identified. The circumflex is a medium caliber artery giving rise to a fairly large proximal OM1 branch and then the trunk of the circumflex and a more distal marginal branch. The circumflex system is smooth and angiographically free of disease. The right coronary artery is medium in caliber dominant to the posterior circulation and angiographically smooth and free of disease. Conclusion:: 1. Right coronary dominant circulation with no angiographic evidence of coronary disease 2. normal left ventricular systolic function normal left-sided hemodynamics 3. symptoms of dyspnea appear to be noncardiac and nuclear stress test is a false-positive exam based on these findings George Rivera MD [facility]
== END 2023-07-30 16:00 | disposition home or self-care (01) ==
PROVIDERS: PCP Nurse Practitioner; Visit Provider Specialist
PROC: 4A023N7 Measurement of Cardiac Sampling and Pressure, Left Heart, Percutaneous Approach (ICD-10-PCS; CPT 93452; principal; 2023-07-30 09:00)
DX: R94.39 Abnormal result of other cardiovascular function study (principal); R06.09 Other forms of dyspnea; I12.9 Hypertensive chronic kidney disease with stage 1 through stage 4 chronic kidney disease, or unspecified chronic kidney disease; E11.22 Type 2 diabetes mellitus with diabetic chronic kidney disease; N18.32 Chronic kidney disease, stage 3b; J45.909 Unspecified asthma, uncomplicated; D64.9 Anemia, unspecified; E78.5 Hyperlipidemia, unspecified; E55.9 Vitamin D deficiency, unspecified; F32.A Depression, unspecified; H40.9 Unspecified glaucoma; K76.0 Fatty (change of) liver, not elsewhere classified; L40.9 Psoriasis, unspecified; Z79.82 Long term (current) use of aspirin; Z79.84 Long term (current) use of oral hypoglycemic drugs; Z79.85 Long-term (current) use of injectable non-insulin antidiabetic drugs
CPT/HCPCS: 36415; 80048; 85025; 93458; C1887; C1894; J0461; J1644; J2250; J3010; J7040

== ENCOUNTER 2023-07-31 22:29 | Emergency (ER) | payer MEDICARE, SELFPAY ==
--- NOTE | ~2023-07-31 | CT_ITS ---
EXAMINATION: CTA abd aorta runoff DATE: 07/31/2023 23:59 INDICATION: Thigh swelling near catheterization site. TECHNIQUE: Computed tomographic angiography (CTA) of the abdominal, pelvis, and both lower extremitie s was performed with 150 mL Omnipaque-350 intravenous contrast. The dose-length product was 691.36 mG y-cm. Maximum intensity projection 3D-reconstructions of the arteries were created by the [employer] t on a separate workstation. COMPARISON: None. FINDINGS: ABDOMINAL AORTA AND ITS BRANCHES: Atherosclerotic calcifications. No aneurysm or dissection. No severe stenosis. PELVIC VASCULATURE: Atherosclerotic calcification. No aneurysm or dissection. No severe stenosis. RIGHT LOWER EXTREMITY VASCULATURE: 1.3 cm bilobed pseudoaneurysm with extending from the common femoral artery near the bifurcation. Lar ge anterior subcutaneous collection, likely representing hematoma with surrounding stranding, measuri ng 3.5 x 8.5 x 9.5. The trifurcation is patent. Single vessel flow via the dominant peroneal artery b elow the level of the ankle LEFT LOWER EXTREMITY VASCULATURE: Patent trifurcation. 2 vessel flow via the anterior tibial artery and peroneal artery below the level of the ankle ADDITIONAL FINDINGS: Moderate diffuse distal esophageal and gastric wall edema. Focal calcification at the gallbladder fun dus. Right ovarian dermoid. The rectum is dilated by formed stool. IMPRESSION: 1.3 cm pseudoaneurysm off the right common femoral bifurcation, with a large anterior thigh soft tiss ue hematoma. Moderate esophagitis/gastritis. Gallbladder fundus calcifications. Right ovarian dermoid. Possible mild fecal impaction. Reviewed, dictated and finalized at location K. H HOLDER ASSEMBLER IMPRESSION: 1.3 cm pseudoaneurysm off the right common femoral bifurcation, with a large an terior thigh soft tissue hematoma. Moderate esophagitis/gastritis. Gallbladder fundus calcifications. Right ovarian dermoid. Possible mild fecal impaction.
--- NOTE | ~2023-07-31 | XR_ITS ---
EXAMINATION: XR chest 1V portable DATE: 07/31/2023 23:01 INDICATION: Nausea and vomiting TECHNIQUE: frontal view of the chest was obtained. COMPARISON: Chest radiograph dated 03/09/2007 FINDINGS: Calcified nodule right upper lungs are consistent with old granulomatous disease. Mild linear discoid atelectasis in the lateral left midlung zone. No other airspace opacities, pulmonary edema, pleural effusion or pneumothorax. The cardiomediastinal silhouette is within normal limits conifer slight lef tward rotation of the patient. IMPRESSION: 1. Mild linear discoid atelectasis in the left midlung zone. No other acute cardiopulmonary disease. Reviewed, dictated and finalized at location A. ICE CLINICAL SUPERVISOR IMPRESSION: 1. Mild linear discoid atelectasis in the left midlung zone. No other acute car diopulmonary disease.
[2023-07-31 22:29] VITALS: BP 65/43; PULSE 95; RESP 12; TEMP 36.6; O2SAT 97
--- NOTE | 2023-07-31 22:40 | PC.NURSE ---
EDP Dr. Gamez made aware of pt condition. Pt hypotensive and nauseated. EDP verbalized understanding and stated he would be in to see pt soon. This RN pulled bag of NS and started infusing on pt per EDP request.
--- NOTE | 2023-07-31 22:40 | ECG_ITS ---
Measurements Intervals [place] Rate: 91 P: 55 LA: 184 QRS: -6 QRSD: 95 T: 43 QT: 372 QTc: 458 Interpretive Statements SINUS RHYTHM POOR R-WAVE PROGRESSION BORDERLINE ECG NO PREVIOUS ECG AVAILABLE FOR COMPARISON Electronically Signed On 08-01-2023 8:08:18 LPN INSTRUCTOR by George Rivera M.D.
--- NOTE | 2023-07-31 22:44 | PC.NURSE ---
On EMS arrival pt wound was size of softball. Upon exposing pt wound is now size of eggplant. EDP Dr. Gamez made aware.
[2023-07-31] MEDS: SODIUM CHLORIDE 0.9% IV 1,000 ML 999 ML IV CONT (22:54)
[2023-07-31] MEDS: ONDANSETRON INJ 4 MG/2 ML VIAL IV PUSH (22:55)
--- NOTE | 2023-07-31 22:55 | ED.EXTPRO ---
HPI - Extremity Problem General Chief complaint: Extremity Problem,Nontraumatic Stated complaint: leg swelling s/p cardiac cath Time Seen by Provider: 07/31/23 22:41 Source: patient Limitations: no limitations History of Present Illness HPI Narrative: Patient is a 73-year-old female presents to the emergency department complaining of right thigh pain and swelling. Patient had a catheterization performed in the right groin yesterday and noticed the swelling pain started just prior to coming into the emergency department it seems to be getting worse. Patient denies use of blood thinners. Patient denies any injuries. Patient is to nausea. Patient denies chest pain, difficulty breathing, fever, pain anywhere other than her right medial thigh. Patient denies any strenuous activity. Patient denies history of this in the past. Patient denies radiation of the discomfort, patient has not tried anything for the pain. Related Data Home Medications Medication Instructions Recorded Confirmed aspirin 81 mg tablet,delayed 81 mg PO DAILY 10/31/19 07/30/23 release (Adult Aspirin Regimen) cholecalciferol (vitamin D3) 25 25 mcg PO DAILY 02/05/20 07/30/23 mcg (1,000 unit) capsule fexofenadine 180 mg tablet 180 mg PO DAILY 08/19/20 07/02/23 (Holley Allergy) dexamethasone 0.5 mg/5 mL oral 0.5 mg PO .COMPLEX 10/20/22 07/30/23 elixir mecobalamin (vitamin B12) 1,000 1,000 mcg PO DAILY 10/20/22 07/30/23 mcg chewable tablet isosorbide mononitrate 30 mg 60 mg PO DAILY 01/19/23 07/02/23 tablet,extended release 24 hr carvedilol 3.125 mg tablet 3.125 mg PO Q12H 03/02/23 07/30/23 icosapent ethyl 1 gram capsule 2 g PO DAILY 07/02/23 07/30/23 Allergies Allergy/AdvReac Type Severity Reaction Status Date / Time ampicillin Allergy Severe Anaphylactic Verified 07/30/23 07:15 Shock lincomycin Allergy Severe Anaphylactic Verified 07/30/23 07:15 Shock Penicillins Allergy Unknown Unknown Verified 07/30/23 07:15 gluten Allergy Other Verified 07/30/23 12:34 Review of Systems Review of Systems: A 10 system review of systems was completed on the patient and is negative except for what is stated in the HPI. Nursing and ancillary documentation was reviewed. [facility] Past Medical History Medical History (Reviewed 04/20/23 @ 09:41 by Kate Denson [facility]) Allergies Anemia Asthma Cataracts, bilateral Chicken pox Chronic kidney disease (CKD) stage G3b/A1, moderately decreased glomerular filtration rate (GFR) between 30-44 mL/min/1.73 square meter and albuminuria creatinine ratio less than 30 mg/g Depression Dyslipidemia associated with type 2 diabetes mellitus Elevated liver enzymes Glaucoma Hepatic steatosis High serum parathyroid hormone (PTH) Hypertension Lichen planus Mcgovern's neuroma Obesity Osteopenia of multiple sites Psoriasis Transaminitis Type 2 diabetes mellitus with hyperglycemia, without long-term current use of insulin Uses hearing aid Vitamin D deficiency Surgical History Surgical History (Reviewed 07/02/23 @ 08:16 by Rosalina Okeefe [facility]) H/O sebaceous cyst removed on right muslim at 17 y/o History of cataract surgery History of tonsillectomy Hx of dilation and curettage Family History Family History (Updated 07/02/23 @ 08:17 by Rosalina Okeefe [facility]) Sibling Diabetes mellitus all siblings now have diabetes Cerebrovascular accident Father Brain tumor Emphysema of lung Mother Lung disease Heart disease Other Alcoholism Cancer Carotid artery disease Cataracts, bilateral Glaucoma Hepatitis Hypertension Substance abuse Vision loss Social History Social History (Reviewed 07/02/23 @ 08:17 by Rosalina Okeefe [facility]) Smoking status: Never smoker Alcohol intake: never Substance use: never Lack of Transportation: No Lack of Food: Never True Current Housing: I Have Housing Concerned About Future Housing: No Difficulty Paying Gas/Electric Bills: No Diffi
[2023-07-31 23:06] LABS: Basophils Percent Auto 0.4 % (0.2-1.2); Eosinophils Absolute Auto 0.1 K/mm3 (0-0.3); Eosinophils Percent Auto 0.5 % (0-4.4); Hematocrit 31.8 % (37.0-47.0); Hemoglobin 9.7 g/dL (12.0-15.0); Immature Granulocyte Absolute 0.05 K/mm3 (0.00-0.031); Immature Granulocyte Percent A 0.5 % (0-0.5); Lymphocytes Absolute Auto 1.84 K/mm3 (0.9-3.2); Lymphocytes Percent Auto 19.3 % (18.3-44.2); Mean Corpuscular HGB Conc 30.5 g/dl (32-36); Mean Corpuscular Hemoglobin 23.4 pg (26-34); Mean Corpuscular Volume 76.8 fl (80-100); Mean Platelet Volume 10.1 fl (7.4-10.4); Monocytes Absolute Auto 0.5 K/mm3 (0.1-0.6); Monocytes Percent Auto 5.2 % (2.6-8.5); Neutrophils Absolute Auto 7.1 K/mm3 (1.3-6.7); Neutrophils Percent Auto 74.1 % (45.5-73.1); Platelet Count Result 163 k/mm3 (150-375); Red Blood Count 4.14 M/mm3 (4.2-5.4); Red Cell Distribution Width 15.9 % (11.5-14.5); White Blood Count 9.5 K/mm3 (4.5-10.0)
[2023-07-31 23:13] LABS: INR 1.1; Partial Thromboplastin Time 25.9 SECONDS (22.3-36.8); Prothrombin Time 14.7 Seconds (11.1-14.7)
[2023-07-31 23:19] LABS: D Dimer 0.34 ug/mL (<0.48)
[2023-07-31 23:20] VITALS: BP 110/45; PULSE 95; RESP 14; O2SAT 100
[2023-07-31 23:20] LABS: Alanine Aminotransferase 26 U/L (6-35); Albumin Level 3.2 g/dL (3.5-5.1); Alkaline Phosphatase 65 U/L (38-126); Anion Gap 7 mmol/L (8-16); Aspartate Amino Transferase 26 U/L (14-36); Bilirubin,Total 0.4 mg/dL (0.2-1.3); Blood Urea Nitrogen 18 mg/dL (7-17); Calcium 8.5 mg/dL (8.4-10.2); Carbon Dioxide 22 mmol/L (22-30); Chloride 106 mmol/L (98-107); Creatine Kinase 27 U/L (30-135); Estimated CRCL calculation 28 ml/min; Estimated Glomerular Filt Rate 40; Glucose 291 mg/dL (65-110); Lipase 569 U/L (23-300); Magnesium 1.7 mg/dL (1.6-2.3); Sodium 135 mmol/L (137-145)
[2023-07-31 23:29] LABS: NT Pro B Type Natriuretic Pept 40 pg/mL (19.9-100); Troponin I < 0.012 ng/mL (0.000-0.034)
[2023-07-31 23:29] LABS: Estimated CRCL calculation 24 ml/min; Estimated Glomerular Filt Rate 34
[2023-08-01 00:09] VITALS: BP 111/58; BP 120/52; PULSE 94; PULSE 99; RESP 13; RESP 16; TEMP 36.3; TEMP 36.4; O2SAT 98; O2SAT 99
--- NOTE | 2023-08-01 00:21 | PC.NURSE ---
report given to Hailee at [facility] at this time.
[2023-08-01 00:29] VITALS: BP 127/60; PULSE 95; RESP 14; TEMP 36.6; O2SAT 99
--- NOTE | 2023-08-01 00:48 | PC.NURSE ---
IV gravity blood tubing and 250mL bag of normal saline used for blood infusion.
[2023-08-01 01:17] VITALS: BP 135/77; PULSE 89; RESP 12; TEMP 36.6; O2SAT 99
[2023-08-01 02:01] LABS: Reflex Lactic Acid Yes or No Add Lactic
[2023-08-01 02:08] LABS: Influenza A QL RT-PCR Negative (Negative); Influenza B QL RT-PCR Negative (Negative); RSV RNA, RT-PCR Negative (Negative); SARS-CoV-2 RNA PCR Negative (Negative)
== END 2023-08-01 01:21 | disposition short-term general hospital (02) ==
PROVIDERS: Emergency Provider Student in an Organized Health Care Education/Training Program; PCP Nurse Practitioner
DX: T81.718A Complication of other artery following a procedure, not elsewhere classified, initial encounter (principal); I72.4 Aneurysm of artery of lower extremity; I97.630 Postprocedural hematoma of a circulatory system organ or structure following a cardiac catheterization; N17.9 Acute kidney failure, unspecified; D62 Acute posthemorrhagic anemia; R74.02 Elevation of levels of lactic acid dehydrogenase [LDH]; Z20.822 Contact with and (suspected) exposure to COVID-19; E11.22 Type 2 diabetes mellitus with diabetic chronic kidney disease; I12.9 Hypertensive chronic kidney disease with stage 1 through stage 4 chronic kidney disease, or unspecified chronic kidney disease; N18.32 Chronic kidney disease, stage 3b; E11.69 Type 2 diabetes mellitus with other specified complication; E78.5 Hyperlipidemia, unspecified; E11.39 Type 2 diabetes mellitus with other diabetic ophthalmic complication; H42 Glaucoma in diseases classified elsewhere; J45.909 Unspecified asthma, uncomplicated; M85.89 Other specified disorders of bone density and structure, multiple sites; E55.9 Vitamin D deficiency, unspecified; Z98.49 Cataract extraction status, unspecified eye; Z79.82 Long term (current) use of aspirin; Z79.85 Long-term (current) use of injectable non-insulin antidiabetic drugs; Z79.84 Long term (current) use of oral hypoglycemic drugs; Y84.0 Cardiac catheterization as the cause of abnormal reaction of the patient, or of later complication, without mention of misadventure at the time of the procedure; D27.0 Benign neoplasm of right ovary; K20.90 Esophagitis, unspecified without bleeding; K29.70 Gastritis, unspecified, without bleeding; R94.31 Abnormal electrocardiogram [ECG] [EKG]
CPT/HCPCS: 36415; 36430; 71045; 75635; 80053; 82550; 83605; 83690; 83735; 83880; 84443; 84484; 85025; 85380; 85610; 85730; 86140; 86850; 86900; 86901; 86920; 87040; 87181; 87637; 93005; 96361; 96374; 99291; J2405; J7030; J7050; P9016; Q9967

== ENCOUNTER 2023-08-10 14:48 | Outpatient (CLI) | payer MEDICARE, SELFPAY ==
[2023-08-10 18:40] LABS: Alanine Aminotransferase 38 U/L (6-35); Albumin Level 3.6 g/dL (3.5-5.1); Alkaline Phosphatase 88 U/L (38-126); Anion Gap 5 mmol/L (8-16); Aspartate Amino Transferase 54 U/L (14-36); Bilirubin,Total 1.7 mg/dL (0.2-1.3); Blood Urea Nitrogen 19 mg/dL (7-17); Calcium 9.2 mg/dL (8.4-10.2); Carbon Dioxide 28 mmol/L (22-30); Chloride 103 mmol/L (98-107); Estimated Glomerular Filt Rate 54; Glucose 114 mg/dL (65-110); Potassium 4.1 mmol/L (3.4-5.0); Sodium 136 mmol/L (137-145)
[2023-08-10 18:42] LABS: Basophils Percent Auto 0.4 % (0.2-1.2); Eosinophils Absolute Auto 0.1 K/mm3 (0-0.3); Eosinophils Percent Auto 0.5 % (0-4.4); Hematocrit 29.2 % (37.0-47.0); Hemoglobin 8.7 g/dL (12.0-15.0); Immature Granulocyte Absolute 0.07 K/mm3 (0.00-0.031); Immature Granulocyte Percent A 0.7 % (0-0.5); Lymphocytes Absolute Auto 0.92 K/mm3 (0.9-3.2); Lymphocytes Percent Auto 9.3 % (18.3-44.2); Mean Corpuscular HGB Conc 29.8 g/dl (32-36); Mean Corpuscular Hemoglobin 24.6 pg (26-34); Mean Corpuscular Volume 82.5 fl (80-100); Mean Platelet Volume 11.1 fl (7.4-10.4); Monocytes Absolute Auto 0.4 K/mm3 (0.1-0.6); Monocytes Percent Auto 3.9 % (2.6-8.5); Neutrophils Absolute Auto 8.5 K/mm3 (1.3-6.7); Neutrophils Percent Auto 85.2 % (45.5-73.1); Platelet Count Result 196 k/mm3 (150-375); Red Blood Count 3.54 M/mm3 (4.2-5.4); Red Cell Distribution Width 18.2 % (11.5-14.5); White Blood Count 9.9 K/mm3 (4.5-10.0)
[2023-08-10 19:06] LABS: Anisocytosis 1+ (NORMAL); Hypochromasia 1+ (NORMAL); Ovalocytes 1+ (NORMAL); Platelet Estimate Adequate (Adequate); Schistocytes None Seen (NORMAL)
== END 2023-08-10 14:49 | disposition home or self-care (01) ==
LOC: ANHGOSHLAB 14:50
PROVIDERS: PCP Nurse Practitioner; Visit Provider Nurse Practitioner
DX: E11.9 Type 2 diabetes mellitus without complications (principal); D64.9 Anemia, unspecified; I10 Essential (primary) hypertension
CPT/HCPCS: 36415; 80053; 85025

== ENCOUNTER 2023-08-17 10:38 | Outpatient (CLI) | payer MEDICARE, SELFPAY ==
[2023-08-17 11:05] LABS: Basophils Percent Auto 0.6 % (0.2-1.2); Eosinophils Percent Auto 0.6 % (0-4.4); Hematocrit 36.5 % (37.0-47.0); Hemoglobin 10.5 g/dL (12.0-15.0); Immature Granulocyte Absolute 0.03 K/mm3 (0.00-0.031); Immature Granulocyte Percent A 0.5 % (0-0.5); Lymphocytes Absolute Auto 1.08 K/mm3 (0.9-3.2); Lymphocytes Percent Auto 16.6 % (18.3-44.2); Mean Corpuscular HGB Conc 28.8 g/dl (32-36); Mean Corpuscular Hemoglobin 24.4 pg (26-34); Mean Corpuscular Volume 84.9 fl (80-100); Mean Platelet Volume 10.3 fl (7.4-10.4); Monocytes Absolute Auto 0.3 K/mm3 (0.1-0.6); Monocytes Percent Auto 5.2 % (2.6-8.5); Neutrophils Percent Auto 76.5 % (45.5-73.1); Platelet Count Result 160 k/mm3 (150-375); Red Cell Distribution Width 19.8 % (11.5-14.5); White Blood Count 6.5 K/mm3 (4.5-10.0)
== END 2023-08-17 10:39 | disposition home or self-care (01) ==
PROVIDERS: PCP Nurse Practitioner; Visit Provider Nurse Practitioner
DX: I72.9 Aneurysm of unspecified site (principal); T81.718A Complication of other artery following a procedure, not elsewhere classified, initial encounter
CPT/HCPCS: 36415; 85025

== ENCOUNTER 2023-08-24 14:53 | Outpatient (CLI) | payer MEDICARE, SELFPAY ==
[2023-08-24 15:27] LABS: Hemoglobin 12.5 g/dL (12.0-15.0); Mean Corpuscular HGB Conc 29.8 g/dl (32-36); Mean Corpuscular Hemoglobin 24.9 pg (26-34); Mean Corpuscular Volume 83.7 fl (80-100); Mean Platelet Volume 10.4 fl (7.4-10.4); Platelet Count Result 176 k/mm3 (150-375); Red Blood Count 5.02 M/mm3 (4.2-5.4); Red Cell Distribution Width 18.9 % (11.5-14.5); White Blood Count 6.2 K/mm3 (4.5-10.0)
[2023-08-24 15:37] LABS: Creatinine Urine 60.2 mg/dL; Total Protein Urine Random 12 mg/dL
[2023-08-24 15:40] LABS: Albumin Level 4.8 g/dL (3.5-5.1); Anion Gap 7 mmol/L (8-16); Blood Urea Nitrogen 19 mg/dL (7-17); Carbon Dioxide 28 mmol/L (22-30); Chloride 101 mmol/L (98-107); Estimated Glomerular Filt Rate 54; Glucose 94 mg/dL (65-110); Phosphorus 3.3 mg/dL (2.5-4.5); Potassium 4.2 mmol/L (3.4-5.0); Sodium 136 mmol/L (137-145)
[2023-08-24 15:52] LABS: Parathyroid Intact 70.2 pg/mL (7.5-53.5)
[2023-08-24 16:08] LABS: Vitamin D 25 Hydroxy 74.6 ng/mL
== END 2023-08-24 14:54 | disposition home or self-care (01) ==
LOC: ANHLAB 15:00
PROVIDERS: PCP Nurse Practitioner; Visit Provider Internal Medicine Nephrology
DX: N18.32 Chronic kidney disease, stage 3b (principal); E21.1 Secondary hyperparathyroidism, not elsewhere classified
CPT/HCPCS: 36415; 80069; 82306; 82570; 83970; 84156; 85027

== ENCOUNTER 2023-10-18 08:31 | Outpatient (CLI) | payer MEDICARE, SELFPAY ==
--- NOTE | 2023-10-18 10:15 | WPDPFTINT ---
PFT Procedure Performed PFT Procedure Performed Plethysmography (Lung Vol) Diffusing Cap (DLCO) Flow Vol Loop Spirometry w/o Bronchodil PFT Interpretation Lung volumes were measured with the body plethysmography method. Lung volumes are unremarkable. Spirometry showed normal expiratory flow rates and a normal FEV1 to FVC ratio 76%. No post bronchodilator study was conducted. Lung diffusion capacity is mildly reduced at 64% predicted. The flow-volume loop is unremarkable. Impression: Spirometry and lung volumes within the normal range. Mild reduction in lung diffusion capacity.
== END 2023-10-18 08:32 | disposition home or self-care (01) ==
LOC: ANHPFT 08:31
PROVIDERS: PCP Nurse Practitioner; Visit Provider Nurse Practitioner Adult Health
DX: R06.09 Other forms of dyspnea (principal)
CPT/HCPCS: 94375; 94726; 94729

== ENCOUNTER 2023-11-10 16:24 | Outpatient (CLI) | payer MEDICARE, SELFPAY ==
--- NOTE | ~2023-11-10 | MM_ITS ---
EXAMINATION: MM screening wilma BI w ronny HISTORY: Screening TECHNIQUE: Craniocaudal and mediolateral oblique 3-D tomosynthesis images were obtained and synthetic 2-D images were generated. CAD analysis was submitted and interpreted. COMPARISON: Comparison to multiple prior studies sequentially, with oldest reviewed study dated 03/08. BREAST PARENCHYMAL COMPOSITION: Not dense: There are scattered areas of fibroglandular density. FINDINGS: There is no evidence of suspicious mass, calcification, or architectural distortion to sugg est malignancy in either breast. There has been no suspicious interval change. IMPRESSION: 1. No mammographic evidence of malignancy. 2. Recommend routine screening mammography in one year. BI-RADS Category 1: Negative Reviewed, dictated and finalized at location B.
== END 2023-11-10 16:25 | disposition home or self-care (01) ==
LOC: ANHIMG 16:30
PROVIDERS: PCP Nurse Practitioner; Visit Provider Nurse Practitioner
DX: Z12.31 Encounter for screening mammogram for malignant neoplasm of breast (principal)
CPT/HCPCS: 77063; 77067

== ENCOUNTER 2023-12-17 11:24 | Outpatient (CLI) | payer MEDICARE, SELFPAY ==
--- NOTE | ~2023-12-17 | CT_ITS ---
EXAMINATION:CT diagnostic chest wo con DATE: 12/17/2023 11:36 INDICATION: Other forms of dyspnea. TECHNIQUE: Computed tomography (CT) of the chest was performed without intravenous contrast. Automate d exposure control and iterative reconstruction technique were employed. The dose-length product (DLP ) was 135.79 mGy-cm. COMPARISON: None. FINDINGS: Calcified right lung nodules and calcified right hilar and mediastinal lymph nodes are cons istent with old granulomatous disease. There is a 4 mm nodule in right lower lobe, likely benign. The re is a 2 mm nodule left lower lobe, likely benign. There is minimal atelectasis bilaterally. No pleu ral effusion. No clear effusion. The heart size is normal. There are coronary artery calcifications. No pericardial effusion. There is calcified atherosclerosis of the aorta and many of the other arteri es. Calcifications in the spleen are consistent with old granulomatous disease. There are wall calcif ications of the gallbladder. There are bridging endplate osteophytes at multiple levels in the spine, consistent with diffuse idiopathic skeletal hyperostosis (DISH). IMPRESSION: 1. No etiology for the patient's symptoms. Reviewed, dictated and finalized at location A.
--- NOTE | 2023-12-17 15:04 | WPDSIXMINUTE ---
Six Minute Walk Procedure Procedure Performed Pulmonary Stress Test (6 min walk) Six Minute Walk Six Minute Walk: This is a 6 minute walk test. The test was performed and interpreted in accordance with the 2014 ERS/ATS task force guidelines. Findings: The patient's resting room air oxygen saturation measured by pulse oximetry was 99% and heart rate was 89 bpm. Patient ambulated for 366 meters and oxygen saturation remained 96 to 99%. Heart rate at the end of the study was 102 bpm. The patient did not qualify for supplemental oxygen at rest or with ambulation. There are no prior studies for comparison.
== END 2023-12-17 11:25 | disposition home or self-care (01) ==
LOC: ANHIMG 11:24
PROVIDERS: PCP Nurse Practitioner; Visit Provider Internal Medicine Pulmonary Disease
DX: R06.09 Other forms of dyspnea (principal)
CPT/HCPCS: 71250; 94618

== ENCOUNTER 2024-02-28 09:09 | Outpatient (CLI) | payer MEDICARE, SELFPAY ==
[2024-02-28 09:40] LABS: Hematocrit 39.6 % (37.0-47.0); Hemoglobin 12.3 g/dL (12.0-15.0); Mean Corpuscular HGB Conc 31.1 g/dl (32-36); Mean Corpuscular Hemoglobin 24.8 pg (26-34); Mean Corpuscular Volume 79.8 fl (80-100); Mean Platelet Volume 10.2 fl (7.4-10.4); Platelet Count Result 142 k/mm3 (150-375); Red Blood Count 4.96 M/mm3 (4.2-5.4); Red Cell Distribution Width 16.1 % (11.5-14.5); White Blood Count 8.4 K/mm3 (4.5-10.0)
[2024-02-28 09:53] LABS: Anion Gap 7 mmol/L (4-12); Blood Urea Nitrogen 18 mg/dL (7-17); Calcium 9.3 mg/dL (8.4-10.2); Carbon Dioxide 28 mmol/L (22-30); Chloride 101 mmol/L (98-107); Estimated Glomerular Filt Rate 48; Glucose 194 mg/dL (65-110); Phosphorus 3.7 mg/dL (2.5-4.5); Potassium 4.1 mmol/L (3.4-5.0); Sodium 136 mmol/L (137-145)
[2024-02-28 10:22] LABS: Total Protein Urine Random 18 mg/dL; Ur Ttl Prot Creatinine Ratio 0.22 mg/mg (0-0.20)
[2024-02-28 10:24] LABS: Parathyroid Intact 28.2 pg/mL (14.5-75.2)
== END 2024-02-28 09:10 | disposition home or self-care (01) ==
PROVIDERS: PCP Nurse Practitioner; Visit Provider Internal Medicine Nephrology
DX: E11.59 Type 2 diabetes mellitus with other circulatory complications (principal); E21.1 Secondary hyperparathyroidism, not elsewhere classified; E78.5 Hyperlipidemia, unspecified; I15.2 Hypertension secondary to endocrine disorders; M85.851 Other specified disorders of bone density and structure, right thigh; M85.852 Other specified disorders of bone density and structure, left thigh; N18.32 Chronic kidney disease, stage 3b
CPT/HCPCS: 36415; 80069; 82570; 83970; 84156; 85027

== ENCOUNTER 2024-05-16 22:17 | Emergency (ER) | payer MEDICARE, SELFPAY ==
[2024-05-16 22:27] VITALS: BP 154/56; PULSE 86; RESP 16; TEMP 36; O2SAT 100
[2024-05-17 00:13] VITALS: BP 169/69; PULSE 82; RESP 17; TEMP 36.4; O2SAT 100
--- NOTE | 2024-05-17 01:32 | ED_ITS ---
HPI - Skin/Abscess/Foreign Bdy General Chief complaint: Skin/Abscess/Foreign Body Stated complaint: skin tear to the RIGHT wrist Time Seen by Provider: 05/17/24 00:22 Source: patient Mode of arrival: ambulatory Limitations: no limitations History of Present Illness HPI narrative: This is a 74 year old female that presents to the ER for a skin tear to her right forearm. Reports she tripped and fell into a chair. Her hand got caught in the side of the chair. When she pulled it out she sustained a skin tear. She is unsure of her last tetanus vaccination. Denies hitting her head, loss of consciousness, other focal injuries. Related Data Home Medications Medication Instructions Recorded Confirmed aspirin 81 mg tablet,delayed 81 mg PO DAILY 10/31/19 03/09/24 release (Adult Aspirin Regimen) cholecalciferol (vitamin D3) 25 25 mcg PO DAILY 02/05/20 03/09/24 mcg (1,000 unit) capsule fexofenadine 180 mg tablet 180 mg PO DAILY 08/19/20 03/09/24 (Holley Allergy) dexamethasone 0.5 mg/5 mL oral 0.5 mg PO .COMPLEX 10/20/22 03/09/24 elixir mecobalamin (vitamin B12) 1,000 1,000 mcg PO DAILY 10/20/22 03/09/24 mcg chewable tablet isosorbide mononitrate 30 mg 60 mg PO DAILY 01/19/23 03/09/24 tablet,extended release 24 hr Allergies Allergy/AdvReac Type Severity Reaction Status Date / Time ampicillin Allergy Severe Anaphylactic Verified 05/16/24 22:18 Shock lincomycin Allergy Severe Anaphylactic Verified 05/16/24 22:18 Shock Penicillins Allergy Unknown Unknown Verified 05/16/24 22:18 gluten Allergy Other Verified 05/16/24 22:18 Review of Systems Review of Systems: CONSTITUTIONAL: Denies fever SKIN: Reports laceration MUSCULOSKELETAL: Denies joint pain, or myalgia. All systems reviewed & are unremarkable except as noted in HPI and below PMFSH Past Medical History Medical History Allergies Anemia Asthma Cataracts, bilateral Chicken pox Chronic kidney disease (CKD) stage G3b/A1, moderately decreased glomerular filtration rate (GFR) between 30-44 mL/min/1.73 square meter and albuminuria creatinine ratio less than 30 mg/g Depression Dyslipidemia associated with type 2 diabetes mellitus Elevated liver enzymes Glaucoma Hepatic steatosis High serum parathyroid hormone (PTH) Hypertension Lichen planus Mcgovern's neuroma Obesity Osteopenia of multiple sites Psoriasis Transaminitis Type 2 diabetes mellitus with hyperglycemia, without long-term current use of insulin Uses hearing aid Vitamin D deficiency Surgical History Surgical History H/O sebaceous cyst removed on right restorationist at 17 y/o History of cardiac cath Jul 2023 History of cataract surgery History of tonsillectomy Hx of dilation and curettage Family History Family History Sibling Diabetes mellitus all siblings now have diabetes Cerebrovascular accident Father Brain tumor Emphysema of lung Mother Lung disease Heart disease Other Alcoholism Cancer Carotid artery disease Cataracts, bilateral Glaucoma Hepatitis Hypertension Substance abuse Vision loss Social History Social History Smoking status: Never smoker Alcohol intake: never Substance use: never Do You Feel Safe in your Home?: Yes Lack of Transportation: No Lack of Food: Never True Current Housing: I Have Housing Concerned About Future Housing: No Difficulty Paying Gas/Electric Bills: No Difficulty Paying for Meds: No Currently Unemployed: No Education: Master's Degree or Higher Difficulty w/ Childcare or Family Care: No Occupation/Education: retired Gender identity (if verbalized by the patient): Female Exam Narrative: GENERAL: Well-appearing, well-nourished, and in no acute distress. HEAD: Normocephalic, atraumatic. EYES: EOMI. EXTREMITIES: Normal range of motion. No edema. Normal radial pulse. Multiple skin tears to the right forearm with contusion present SKIN: Warm, dry, no rash. NEURO: No focal deficits. Alert and oriented x3. PSYCH: Normal mood and affect Course Course Emergency Course: Patient educated on further wound care Vital Signs Vital signs: Vital Signs Temperature 96.8 F L 05/16/24 22:27 Pulse Rate 86 05/16/24 22:27 Respiratory Rate 16 05/16/24 22:27 Blood Pressure 154/56 H 05/16/24 22:27 Pulse Oximetry 100 05/16/24 22:27 Oxygen Delivery Room Air 05/16/24 22:27 Temperature 97.6 F 05/17/24 00:13 Pulse Rate 82 05/17/24 00:13 Respiratory Rate 17 05/17/24 00:13 Blood Pressure 169/69 H 05/17/24 00:13 Pulse Oximetry 100 05/17/24 00:13 Oxygen Delivery Room Air 05/16/24 22:27 Procedures Laceration Laceration 1: Date: 05/17/24 Time: 02:09 Site: upper extremity Side (If applicable): right Description: irregular Depth: simple, single layer Pre-repair: irrigated ====== Skin Level ====== Skin layer closed with: steri strips ====== Subcutaneous Layer ====== ====== Muscle Layer ====== ====== Tendon Layer ====== MDM - Skin/Abscess/Foreign Bdy MDM Narrative Medical decision making narrative: Patient presents to the emergency department for skin tear to the right forearm. Her was a and closed with Steri-Strips and covered with a bandage. She was updated on tetanus vaccination. Educated on further wound care. She is to follow up with primary provider. She was given warnings to return to the ER Differential Diagnosis Differential diagnosis: Likely other (skin tear, laceration) Critical Care Time Critical Care Time Critical Care Time: No Discharge Plan Discharge Clinical Impression: Skin tear Patient Disposition: Home, Self-Care Condition: Stable Instructions: Laceration (ED), Steristrips (ED) Additional Instructions: Return to the emergency department if you experience fever, redness or swelling of your wound, abnormal drainage from your wound, or any other symptoms that are concerning to you. You may let the water run over the wound in the shower. When the steri strips fall off clean the area with mild soap and water and apply antibiotic ointment and a nonstick bandage daily Follow-up with your primary care doctor for wound check Prescriptions: No Action aspirin [Adult Aspirin Regimen] 81 mg tablet,delayed release (DR/EC) 81 mg PO DAILY dexamethasone 0.5 mg/5 mL elixir 0.5 mg PO .COMPLEX Rx Instructions: 0.5 mg orally 1-4 times daily; cholecalciferol (vitamin D3) 25 mcg (1,000 unit) capsule 25 mcg PO DAILY fexofenadine [Holley Allergy] 180 mg tablet 180 mg PO DAILY mecobalamin (vitamin B12) 1,000 mcg tablet,chewable 1,000 mcg PO DAILY Patient Comments: gelcap isosorbide mononitrate 30 mg tablet extended release 24 hr 60 mg PO DAILY icosapent ethyl [Vascepa] 1 gram capsule 2 g PO BID Qty: 360 1RF Ozempic 1 mg/dose (4 mg/3 mL) pen injector 1 mg subcut WEEKLY Qty: 6 4RF glimepiride 2 mg tablet See Rx Instructions .ROUTE .COMPLEX Qty: 90 1RF Dose Instruction: TAKE 1 TABLET BY MOUTH DAILY WITH BREAKFAST Rx Instructions: TAKE 1 TABLET BY MOUTH DAILY WITH BREAKFAST carvedilol 3.125 mg tablet 3.125 mg PO Q12H Qty: 180 1RF atorvastatin 40 mg tablet 40 mg PO DAILY Qty: 90 1RF metformin 1,000 mg tablet See Rx Instructions .ROUTE .COMPLEX Qty: 90 0RF Dose Instruction: TAKE 1 TABLET BY MOUTH DAILY Rx Instructions: TAKE 1 TABLET BY MOUTH DAILY Follow-up/Referrals: Trisha Sands, INVESTIGATIVE ANALYST [Primary Care Provider] -
[2024-05-17] MEDS: TETANUS,DIPHTHERIA,AC PERTUSSIS ADULT (0.5 ML) BOOSTRIX IM (01:36)
== END 2024-05-17 01:40 | disposition home or self-care (01) ==
PROVIDERS: Emergency Provider Physician Assistant; PCP Nurse Practitioner
DX: S51.811A Laceration without foreign body of right forearm, initial encounter (principal); D64.9 Anemia, unspecified; J45.909 Unspecified asthma, uncomplicated; I12.9 Hypertensive chronic kidney disease with stage 1 through stage 4 chronic kidney disease, or unspecified chronic kidney disease; E11.22 Type 2 diabetes mellitus with diabetic chronic kidney disease; N18.32 Chronic kidney disease, stage 3b; F32.A Depression, unspecified; W18.40XA Slipping, tripping and stumbling without falling, unspecified, initial encounter; Z23 Encounter for immunization
CPT/HCPCS: 90471; 90715; 99282

== ENCOUNTER 2024-07-06 13:18 | Outpatient (CLI) | payer MEDICARE, SELFPAY ==
[2024-07-06 14:34] LABS: Basophils Percent Auto 0.4 % (0.2-1.2); Eosinophils Percent Auto 0.4 % (0-4.4); Hematocrit 41.2 % (37.0-47.0); Hemoglobin 12.7 g/dL (12.0-15.0); Immature Granulocyte Absolute 0.02 K/mm3 (0.00-0.031); Immature Granulocyte Percent A 0.3 % (0-0.5); Lymphocytes Absolute Auto 1.43 K/mm3 (0.9-3.2); Lymphocytes Percent Auto 18.1 % (18.3-44.2); Mean Corpuscular HGB Conc 30.8 g/dl (32-36); Mean Corpuscular Hemoglobin 24.5 pg (26-34); Mean Corpuscular Volume 79.5 fl (80-100); Mean Platelet Volume 10.4 fl (7.4-10.4); Monocytes Absolute Auto 0.4 K/mm3 (0.1-0.6); Monocytes Percent Auto 4.8 % (2.6-8.5); Platelet Count Result 145 k/mm3 (150-375); Red Blood Count 5.18 M/mm3 (4.2-5.4); Red Cell Distribution Width 15.7 % (11.5-14.5); White Blood Count 7.9 K/mm3 (4.5-10.0)
[2024-07-06 15:21] LABS: Alanine Aminotransferase 34 U/L (6-35); Albumin Level 4.1 g/dL (3.5-5.1); Alkaline Phosphatase 77 U/L (38-126); Anion Gap 11 mmol/L (4-12); Aspartate Amino Transferase 31 U/L (14-36); Bilirubin,Total 0.6 mg/dL (0.2-1.3); Blood Urea Nitrogen 21 mg/dL (7-17); Calcium 9.5 mg/dL (8.4-10.2); Carbon Dioxide 27 mmol/L (22-30); Chloride 102 mmol/L (98-107); Estimated Glomerular Filt Rate 53; Glucose 122 mg/dL (65-110); Sodium 140 mmol/L (137-145)
[2024-07-06 15:31] LABS: NT Pro B Type Natriuretic Pept 30 pg/mL (19.9-100)
[2024-07-06 15:53] LABS: Thyroid Stimulating Hormone 0.624 uIU/mL (0.465-4.680)
== END 2024-07-06 13:19 | disposition home or self-care (01) ==
PROVIDERS: PCP Nurse Practitioner; Visit Provider Internal Medicine
DX: R06.09 Other forms of dyspnea (principal)
CPT/HCPCS: 36415; 80053; 83880; 84443; 85025

== ENCOUNTER 2024-08-16 09:33 | Outpatient (CLI) | payer MEDICARE, SELFPAY ==
--- OUTSIDE RECORDS SUMMARY | 2024-08-16 10:23 | XMS_ITS | Referral Summary ---
Author Organization [facility] [address] [facility] [address] Address [address] [place] [address] Care Team Providers Care Shot Grinder Operator Name Role Phone Daniel Potter DO Primary Care Provider [phone] Encounters Date Type Department Care Team Description 07/06/2024 1:00 PM CLIENT SERVICES VICE PRESIDENT Office Visit [facility] Cardiology [address] [place] [address] Jay Jay Avalos MD GIMENEZ (dyspnea on exertion) (Primary Dx); Multiple-type hyperlipidemia; Essential hypertension; Nonrheumatic aortic valve insufficiency; Nonobstructive atherosclerosis of coronary artery from Last 3 Months Allergies Active Allergy Reactions Criticality Noted Date Comments Lincomycin Hcl Other (See comments) Low 07/15/2020 Throat closes Other Other (See comments) Low 07/15/2020 Allergic to any -cillins. Throat closes and cannot breathe Penicillins Anaphylaxis Reaction: ANAPHYLAXIS, , Medications fexofenadine-pse udoephedrine (ARMIDA-D 12 HOUR) 60-120 mg per 12 hr tablet Take one by mouth one time per day 0 0 7 Active aspirin 81 mg tablet Take one by mouth one time per day 0 0 8 Active semaglutide (Ozempic) 1 mg/dose (2 mg/1.5 mL) pen injector Inject under the skin once a week Active metFORMIN (GLUMETZA) 1,000 mg 24 hr tablet Take 1 tablet (1,000 mg total) by mouth daily with breakfast Active atorvastatin (LIPITOR) 40 mg tablet Take 1 tablet (40 mg total) by mouth daily Active dexAMETHasone oral liquid 0.5 mg/5 mL Take by mouth daily Active cholecalciferol (VITAMIN D-3) 87756 unit capsule Take 1 capsule (10,000 Units total) by mouth daily Active icosapent ethyL (VASCEPA) 1 gram capsule Take 2 capsules (2 g total) by mouth daily Active carvediloL (COREG) 6.25 mg tablet Take 0.5 tablets (3.125 mg total) by mouth 2 (two) times a day with meals 30 tablet 1 Active glimepiride (AMARYL) 2 mg tablet Take 1 tablet (2 mg total) by mouth daily before breakfast 2 Active cyanocobalamin (Vitamin B-12) 1,000 mcg tabletIndication s:Prevention of Vitamin B12 Deficiency Take 1 tablet (1,000 mcg total) by mouth daily Active isosorbide mononitrate ER (IMDUR) 60 mg 24 hr tabletIndication s:Abnormal nuclear stress test TAKE 1 TABLET(60 MG) BY MOUTH DAILY 90 tablet 3 4 Active Active Problems Problem Noted Date Diagnosed Date 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 09/25/19 23 Chest tightness 09/23/2022 GIMENEZ (dyspnea on exertion) 09/23/2022 Idiopathic hypotension 09/30/2021 Nonobstructive atherosclerosis of coronary arter y 09/18/2020 Dizziness 07/15/2020 Orthostatic hypotension 07/15/2020 Hypertension associated with stage 3 chronic kidney disease due to type 2 diabetes mellitus 07/15/2020 Sinus tachycardia 07/15/2020 Essential hypertension 10/28/2013 Overview (09/18/2016): HYPERTENSION NOS Type 2 diabetes mellitus 10/28/2013 Overview (09/18/2016): DMII WO CMP UNCNTRLD Precordial pain 10/28/2013 Overview (09/18/2016): PRECORDIAL PAIN Abnormal liver function tests 10/28/2013 Overview (09/18/2016): ABN LIVER FUNCTION STUDY Multiple-type hyperlipidemia 10/28/2013 Overview (09/18/2016): MIXED HYPERLIPIDEMIA Pure hypercholesterolemia 10/28/2013 Overview (09/18/2016): PURE HYPERCHOLESTEROLEM Social History Tobacco Use Types Packs/Day Years Used Date Smoking Tobacco: Never Smokeless Tobacco: Never Tobacco Cessation:Counseling Given: Not Answered Alcohol Use Standard Drinks/Week Comments Never 0 (1 standard drink = 0.6 oz pur e alcohol) [facility] Utilities Answer Date Recorded In the past 12 months has e electric, gas, oil, or water company threatened to shut off services in your home? No 08/05/2023 Social Connection and Isolat ion Panel [NHANES] Answer Date Recorded In a typical week, how many times do you talk on the phone with family, friends, or neighbors? More than three times a week 08/05/2023 How often do you get togethe r with friends or relatives? More than three times a week 08/05/2023 How often do you attend chur ch or synagogue services? 1 to 4 times per year 08/05/2023 Do you belong to any clubs o r organizations such as alevism groups, unions, fraternal or athletic groups, or school groups? No 08/05/2023 How often do you attend meet ings of the clubs or organizations you belong to? Never 08/05/2023 Are you , , di vorced, , never , or living with a partner? 08/05/2023 AUDIT-C Answer Date Recorded Q1: How often do you have a drink containing alc ohol? Never 07/15/2020 Average Number of Drinks Not on file 021 Frequency of Binge Drinking Not on file 06/2020 Overall Financial Resource Strain (CARDIA) Answe r Date Recorded How hard is it for you to pa y for the very basics like food, housing, medical care, and heating? Not hard at all 08/05/2023 Hunger Vital Sign Answer Date Recorded Within the past 12 months, y ou worried that your food would run out before you got the money to buy more. Never true 08/05/19 24 Within the past 12 months, t he food you bought just didn't last and you didn't have money to get more. Never true 08/05/2023 PRAPARE - Transportation Answer Date Re corded In the past 12 months, has l ack of transportation kept you from medical appointments or from getting medications? No 07/16 In the past 12 months, has l ack of transportation kept you from meetings, work, or from getting things needed for daily living? No 08/05/2023 Housing Stability Vital Sign Answer Dillan e Recorded In the last 12 months, was t here a time when you were not able to pay the mortgage or rent on time? No 08/05/2023 In the last 12 months, how many places have you lived? 1 08/05/2023 In the last 12 months, was t here a time when you did not have a steady place to sleep or slept in a intermediate (including now)? No 08/05/2023 Personal Safety Answer Date Recorded Have you ever been in or are you currently in a harmful physical or emotional relationship or is someone making you feel afraid or unsafe? Denies 08/01/2023 Comments Unknown Sex and Gender Information Value Date Recorded Sex Assigned at Not on file Legal Sex Female 12:24 AM CLIENT SERVICES VICE PRESIDENT Gender Identity Not on file Sexual Orientation Not on file Last Filed Vital Signs Vital Sign Reading Time Taken Comments Blood Pressure 112/68 07/06/2024 12:55 PM CLIENT SERVICES VICE PRESIDENT Pulse 100 07/06/2024 12:55 PM CLIENT SERVICES VICE PRESIDENT Temperature 36.6 C (97.9 F) 08/04/2023 7:55 AM CLIENT SERVICES VICE PRESIDENT Respiratory Rate 18 08/04/2023 7:55 AM CLIENT SERVICES VICE PRESIDENT Oxygen Saturation 99% 07/06/2024 12:55 PM CLIENT SERVICES VICE PRESIDENT Inhaled Oxygen Concentration - - Weight 59.9 kg (132 lb) 07/06/2024 12:55 PM CLIENT SERVICES VICE PRESIDENT Height 160 cm (5' 3 ) 07/06/2024 12:55 PM CLIENT SERVICES VICE PRESIDENT Body Mass Index 23.38 07/06/2024 12:55 PM CLIENT SERVICES VICE PRESIDENT Plan of Treatment Not on file Procedures Procedure Name Priority Date/Time Associated Diagnosis Comments PRO B-TYPE NATRIURETIC PEPTIDE Routine 07/06/2024 GIMENEZ (dyspnea on exertion) TSH Routine 07/06/2024 GIMENEZ (dyspnea on exertion) COMPREHENSIVE METABOLIC PANEL Routine 07/06/2024 GIMENEZ (dyspnea on exertion) HEMOGLOBIN A1C Timed 08/03/2023 8:49 AM CLIENT SERVICES VICE PRESIDENT LIPID PANEL STAT 08/01/2023 9:37 PM CLIENT SERVICES VICE PRESIDENT from Last 3 Months or Most Recently Relevant to Health Maintenance Results * Pro B-type natriuretic peptide (07/06/2024) SCRIBED NT PROBNP 30 19.9 - 100 EXTERNAL LAB Blood 07/06/2024 Jay Jay Avalos MD LAB BLOOD ORDERABLES Fi nal Result EXTERNAL LAB * TSH (07/06/2024) Pathologist [facility] [place] Scribed TSH 0.62 0.47 - 4.68 mcU/mL EXTERNAL LAB Blood 07/06/2024 Jay Jay Avalos MD LAB BLOOD ORDERABLES Fi nal Result EXTERNAL LAB * (ABNORMAL) Comprehensive metabolic panel (07/06/2024) SCRIBED Sodium 140 137 - 145 mmol/L EXTERNAL LAB SCRIBED Potassium 4.0 3.4 - 5.0 mmol/L EXTERNAL LAB SCRIBED Chloride 102 98 - 107 mmol/L EXTERNAL LAB SCRIBED Carbon Dioxide 27 22 - 30 mmol/L EXTERNAL LAB SCRIBED Anion Gap 11 4 - 12 mmol/L EXTERNAL LAB SCRIBED Urea Nitrogen (BUN) 21(A) 7 - 17 mg/dl EXTERNAL LAB SCRIBED Creatinine 1.02(A) 0.7 - 1.0 mg/dl EXTERNAL LAB SCRIBED Glucose 122(A) 65 - 110 mg/dl EXTERNAL LAB SCRIBED Calcium 9.5 8.4 - 10.2 mg/dl EXTERNAL LAB SCRIBED Bilirubin 0.6 0.2 - 1.3 mg/dl EXTERNAL LAB SCRIBED Plasma Protein 7.0 6.3 - 8.2 g/dl EXTERNAL LAB SCRIBED Albumin 4.1 3.5 - 5.1 g/dl EXTERNAL LAB SCRIBED Alkaline Phosphatase 77 38 - 126 Units/L EXTERNAL LAB SCRIBED Alanine Transaminase (ALT) 34 6 - 35 Units/L EXTERNAL LAB SCRIBED Aspartate Transaminase (AST) 31 14 - 36 Units/L EXTERNAL LAB SCRIBED eGFR in N/A N/A EXTERNAL LAB SCRIBED eGFR in NonAfrican Burkinan 53 > or = 60 EXTERNAL LAB Blood 07/06/2024 us Jay Jay Avalos MD LAB BLOOD ORDERABLES Fi nal Result Performing Organization Address City/[facility]/ZIP Co de Phone Number EXTERNAL LAB * (ABNORMAL) Hemoglobin A1c (08/03/2023 8:49 AM CLIENT SERVICES VICE PRESIDENT) Hgb A1C 7.2(H) 4.0 - 5.6 % [facility] Estimated Average Glucose 160 mg/dL [facility] Comment: The ADA recommends reporting an estimated Average Glucose (eAG) with all Hemoglobin A1c results using the equation derived from a study of 507 normal and diabetic adults. Minority populations were underrepresented and children were not included. (Diabetes Care 2020; 43(S1): S66-S76). The eAG is not equivalent to a fasting glucose. Blood 08/03/2023 8:49 AM CLIENT SERVICES VICE PRESIDENT 08/03/2023 9:27 AM CLIENT SERVICES VICE PRESIDENT us Twyla Castellon MD PhD LAB BLOOD ORDERABLES Final Result Performing Organization Address City/[facility]/ZIP Co de Phone Number [facility] [place] [address] * (ABNORMAL) Lipid panel (08/01/2023 9:37 PM CLIENT SERVICES VICE PRESIDENT) Cholesterol 121 30 - 199 mg/dL [facility] Comment: Interpretive Data Ages < or = 19 years Acceptable: <170 mg/dL Borderline high: 170-199 mg/dL High: >or= 200 mg/dL Ages > or = 20 years Desirable: <200 mg/dL Borderline high: 200-239 mg/dL High: >or= 240 mg/dL Literature References: 1. Expert Panel on Integrated Guidelines for Cardiovascular Health and Risk Reduction in Children and Adolescents. Pediatrics 2011;128:S213 2. NCEP Expert Panel. Circulation 2004;110:227 Current Interpretive Data was last revised on 2018. Triglycerides 131 <=149 mg/dL [facility] Comment: Interpretive Data Ages < or = 9 years Acceptable: <75 mg/dL Borderline high: 75-99 mg/dL High: >or= 100 mg/dL Ages 10 to 20 years Acceptable: <90 mg/dL Borderline high: 90-129 mg/dL High: >or= 130 mg/dL Ages > or = 20 years Desirable: <150 mg/dL Borderline high: 150-199 mg/dL High: 200-499 mg/dL Very high: >or= 499 mg/dL Literature References: 1. Expert Panel on Integrated Guidelines for Cardiovascular Health and Risk Reduction in Children and Adolescents. Pediatrics 2011;128:S213 2. NCEP Expert Panel. Circulation 2004;110:227 Current Interpretive Data was last revised on 2018. HDL 37(L) >=40 mg/dL [facility] Comment: Interpretive Data Ages < or = 19 years Acceptable: >45 mg/dL Borderline low: 40-45 mg/dL Low: <40 mg/dL Ages > or = 20 years Desirable: >or= 60 mg/dL Low: <40 mg/dL Literature References: 1. Expert Panel on Integrated Guidelines for Cardiovascular Health and Risk Reduction in Children and Adolescents. Pediatrics 2011;128:S213 2. NCEP Expert Panel. Circulation 2004;110:227 Current Interpretive Data was last revised on 2018. LDL, calculated 58 <=129 mg/dL [facility] Comment: Interpretive Data Ages < or = 19 years Acceptable: <110 mg/dL Borderline high: 110-129 mg/dL High: >or= 130 mg/dL Ages > or = 20 years Optimal: <100 mg/dL Near optimal: 100-129 mg/dL Borderline high: 130-159 mg/dL High: >160 mg/dL Literature References: 1. Expert Panel on Integrated Guidelines for Cardiovascular Health and Risk Reduction in Children and Adolescents. Pediatrics 2011;128:S213 2. NCEP Expert Panel. Circulation 2004;110:227 Current Interpretive Data was last revised on 2018. Non-HDL Cholesterol 84 mg/dL [facility] Comment: Interpretive Data Ages < or = 19 years Acceptable: <120 mg/dL Borderline high: 120-144 mg/dL High: >145 mg/dL Ages > or = 20 years When triglycerides are >200 mg/dL, Non-HDL cholesterol is a secondary target of therapy with treatment goals that are 30 mg/dL greater than the LDL cholesterol target. Literature References: 1. Expert Panel on Integrated Guidelines for Cardiovascular Health and Risk Reduction in Children and Adolescents. Pediatrics 2011;128:S213 2. NCEP Expert Panel. Circulation 2004;110:227 Current Interpretive Data was last revised on 2018. Chol/HDL ratio 3 [facility] Blood 08/01/2023 9:37 PM CLIENT SERVICES VICE PRESIDENT 08/01/2023 10:16 PM CLIENT SERVICES VICE PRESIDENT us Twyla Castellon MD PhD LAB BLOOD ORDERABLES Final Result [facility] [place] [address] from Last 3 Months or Most Recently Relevant to Health Maintenance Insurance [employer] MEDICARE [facility] MEDICARE Address: [facility] [id number] [place] [id number] [facility] MEDICARE [employer]ET[employer] MEDICARE Advance Directives For more information, please contact: [phone] * Full Code (Latest Code Status on File) Date Activated Date Inactivated Comments 08/01/2023 8:59 PM 08/04/2023 7:13 PM Care Teams Shot Grinder Operator Relationship Specialty Start Date End Date Daniel Potter DO PCP - General 11/20/10
--- OUTSIDE RECORDS SUMMARY | 2024-08-16 10:23 | XMS_ITS | Clinical Summary ---
Author Organization [facility] [address] Address [address] [place] [address] Care Team Providers Care Air And Missile Defense Crewmember Name Role Phone RubensildaDaniel DO Primary Care Provider [phone] Allergies Active Allergy Reactions Criticality Noted Date [...] by mouth daily Active cholecalciferol (VITAMIN D-3) 11706 unit capsule Take 1 capsule (10,000 Units [...] Pure hypercholesterolemia 10/28/2013 Overview (09/18/2016): PURE HYPERCHOLESTEROLEM Encounters Date Type Department Care Team Description 07/06/2024 1:00 PM HEALTH CARE ASSISTANT Office Visit [facility] Cardiology [address] [place] [address] Jay Jay Avalos MD DOE (dyspnea on exertion) (Primary Dx); Multiple-type hyperlipidemia; Essential hypertension; Nonrheumatic aortic valve insufficiency; Nonobstructive atherosclerosis of coronary artery from Last 3 Months Medical History Medical History Date Comments Diabetes mellitus (HCC) Diabetes Hypertension Hyperlipidemia Cataracts, bilateral Glaucoma Asthma Family History Medical History Relation Name Comments Diabetes Brother 1 Stroke Brother 2 Diabetes Brother 3 Emphysema Father Glioblastoma Father cause of Coronary artery disease Mother OH i n her late 60's Pulmonary fibrosis Mother Other Other 1 adopted Other Other 2 Family history of Blood disease; Other Other 3 adopted Coronary artery disease Other 4 Fami ly history of Coronary artery disease; Other Other 5 adopted Other Other 6 Family history of Cancer -brain tumor; Other Other 7 adopted Diabetes type II Other 8 Family hist ory of Diabetes -Type II; Other Other 9 adopted Hypertension Other 10 Family history of Hypertension; Other Other 11 adopted Osteoarthritis Other 12 Family histor y of Osteoarthritis; Other Other 13 adopted Osteoporosis Other 14 Family history of Osteoporosis; Other Other 15 adopted Kidney disease Other 16 Family histor y of Renal disease; Other Other 17 adopted Stroke Other 18 Family history of Stroke; Other Other 19 adopted Depression Other 20 Family history of Depression; Other Other 21 adopted Other Other 22 Family history of Mental illness -; Other Other 23 adopted Other Other 24 No family histo ry of Depression; Other Other 25 adopted Other Other 26 No family histo ry of Mental illness -; Relation Name Status Comments Brother 1 Alive Brother 2 Alive Brother 3 Alive Father (Age 73) Mother (Age 88) Other 1 Other 2 Other 3 Other 4 Other 5 Other 6 Other 7 Other 8 Other 9 Other 10 Other 11 Other 12 Other 13 Other 14 Other 15 Other 16 Other 17 Other 18 Other 19 Other 20 Other 21 Other 22 Other 23 Other 24 Other 25 Other 26 Social History Tobacco Use Types Packs/Day Years Used Date Smoking Tobacco: Never Smokeless Tobacco: Never Tobacco Cessation:Counseling Given: Not Answered Alcohol Use Standard Drinks/Week Comments Never 0 (1 standard drink = 0.6 oz pur e alcohol) [facility] Utilities Answer Date Recorded In the past 12 months has e [employer], gas, oil, or water [employer] threatened to shut off services in your [...] often do you attend chur ch or church services? 1 to 4 times per year 08/05/2023 Do you belong to any clubs o r organizations such as jewish groups, unions, fraternal or athletic groups, or [...] place to sleep or slept in a long-term (including now)? No 08/05/2023 Personal Safety Answer Date Recorded Have you ever been in or are you currently in a harmful physical or emotional relationship or is someone making you feel afraid or unsafe? Denies 08/01/2023 Comments Unknown Sex and Gender Information Value Date Recorded Sex Assigned at Not on file Legal Sex Female 12:24 AM HEALTH CARE ASSISTANT Gender Identity Not on file Sexual Orientation Not on file Obstetrics History Last Filed Vital Signs Vital Sign Reading Time Taken Comments Blood Pressure 112/68 07/06/2024 12:55 PM HEALTH CARE ASSISTANT Pulse 100 07/06/2024 12:55 PM HEALTH CARE ASSISTANT Temperature 36.6 C (97.9 F) 08/04/2023 7:55 AM HEALTH CARE ASSISTANT Respiratory Rate 18 08/04/2023 7:55 AM HEALTH CARE ASSISTANT Oxygen Saturation 99% 07/06/2024 12:55 PM HEALTH CARE ASSISTANT Inhaled Oxygen Concentration - - Weight 59.9 kg (132 lb) 07/06/2024 12:55 PM HEALTH CARE ASSISTANT Height 160 cm (5' 3 ) 07/06/2024 12:55 PM HEALTH CARE ASSISTANT Body Mass Index 23.38 07/06/2024 12:55 PM HEALTH CARE ASSISTANT Plan of Treatment Health Maintenance Due Date Last Done Comments Albumin Creatinine Ratio, Urine 1948 Depression Screening 1948 Hepatitis C Screening 1948 Osteoporosis Screening-Bone Density Scan 1948 Dilated Eye Exam 1948 Foot Exam 1948 DTaP/Tdap/Td Vaccine (1 - Tdap) 1959 Hepatitis B Screening 1966 Pneumococcal vaccine 65+ (1 of 2 - PCV) 1967 Zoster Vaccine (1 of 2) 1998 Well Visit 65+ 2013 Hemoglobin A1C 02/01/2024 08/03/2023 Covid-19 Vaccine (4 - 2023-2 5 season) 2024 05/26/2021, 10/16/2020, 09/25/2020 Influenza Vaccine (#1) 2024 Lipid Panel 08/01/2024 08/01/2023, 02/0 06/2023, 09/23/2022, Additional history exists Fall Risk Assessment 08/04/2024 08/04/2023 eGFR 07/06/2025 07/06/2024, 02/2 , 08/03/2023, Additional history exists Procedures Procedure Name Priority Date/Time Associated Diagnosis Comments PRO B-TYPE NATRIURETIC PEPTIDE Routine 07/06/2024 GIMENEZ (dyspnea on exertion) TSH Routine 07/06/2024 GIMENEZ (dyspnea on exertion) COMPREHENSIVE METABOLIC PANEL Routine 07/06/2024 GIMENEZ (dyspnea on exertion) HEMOGLOBIN A1C Timed 08/03/2023 8:49 AM HEALTH CARE ASSISTANT LIPID PANEL STAT 08/01/2023 9:37 PM HEALTH CARE ASSISTANT from Last 3 Months or Most Recently Relevant to Health Maintenance Results * Pro B-type natriuretic peptide (07/06/2024) SCRIBED NT PROBNP 30 19.9 - 100 EXTERNAL LAB Blood 07/06/2024 Jay Jay Avalos MD LAB BLOOD ORDERABLES Fi nal Result EXTERNAL LAB * TSH (07/06/2024) Scribed TSH 0.62 0.47 - 4.68 mcU/mL [...] N/A EXTERNAL LAB SCRIBED eGFR in NonAfrican [place]er 53 > or = 60 EXTERNAL LAB Blood 07/06/2024 us Jay Jay Avalos MD LAB BLOOD ORDERABLES nal Result EXTERNAL LAB * (ABNORMAL) Hemoglobin A1c (08/03/2023 8:49 AM HEALTH CARE ASSISTANT) Hgb A1C 7.2(H) 4.0 - 5.6 % [facility] Estimated Average Glucose 160 mg/dL [facility] Comment: The ADA recommends reporting an estimated Average Glucose (eAG) with all Hemoglobin A1c results using the equation derived from a study of 507 normal and diabetic adults. Minority populations were underrepresented and children were not included. (Diabetes Care 2020; 43(S1): S66-S76). The eAG is not equivalent to a fasting glucose. Blood 08/03/2023 8:49 AM HEALTH CARE ASSISTANT 08/03/2023 9:27 AM HEALTH CARE ASSISTANT us Twyla Castellon MD PhD LAB BLOOD ORDERABLES Final Result [facility] Department [place] [address] * (ABNORMAL) Lipid panel (08/01/2023 9:37 PM HEALTH CARE ASSISTANT) Cholesterol 121 30 - 199 mg/dL [facility] Comment: Interpretive Data Ages < [...] revised on 2018. Triglycerides 131 <=149 mg/dL [facility] Comment: Interpretive Data Ages < [...] revised on 2018. HDL 37(L) >=40 mg/dL [facility] Comment: Interpretive Data Ages < [...] on 2018. LDL, calculated 58 <=129 mg/dL [facility] Comment: Interpretive Data Ages < or [...] revised on 2018. Non-HDL Cholesterol 84 mg/dL [facility] Comment: Interpretive Data Ages < or [...] last revised on 2018. Chol/HDL ratio 3 [facility] Blood 08/01/2023 9:37 PM HEALTH CARE ASSISTANT 08/01/2023 10:16 PM HEALTH CARE ASSISTANT Twyla Castellon MD PhD LAB BLOOD ORDERABLES Final Result [facility] Department [place] [address] from Last 3 Months or Most Recently Relevant to Health Maintenance Insurance AETNA MEDICARE [facility] MEDICARE [facility] MEDICARE Advance Directives For more information, please contact: [phone] * Full Code (Latest Code Status on File) Date Activated Date Inactivated Comments 08/01/2023 8:59 PM 08/04/2023 7:13 PM Care Teams Air And Missile Defense Crewmember Relationship Specialty Start Date End Date Daniel Potter DO [facility] - General 11/20/10
--- OUTSIDE RECORDS SUMMARY | 2024-08-16 10:23 | XMS_ITS | Clinical Summary ---
Author Organization [facility] Address [address] [place] [address] Phone Care Team Providers Care Billet Recorder Name Role Phone Daniel Potter DO Primary Care Provider [phone] Allergies Active Allergy Reactions Criticality Noted Date Comments Lincomycin Other (see comments) Low 07/15/2020 Throat closes Penicillins Anaphylaxis High 07/17/2020 Reaction: ANAPHYLAXIS, , Medications Medication Sig Dispensed Refills Start Date End Date Status carvedilol (COREG) 3.125 MG tablet 07/09/2020 Active atorvastatin (LIPITOR) 40 MG tablet Take 40 mg by mouth 1 (one) time each day 06/29/2020 Active dexamethasone 0.5 MG/5ML elixir Take by mouth daily Swish and spit Active fexofenadine-pseudoep hedrine ([facility] Allergy [facility] Congestion) 60-120 MG per 12 hr tablet Take one by mouth one time per day 01/13/2007 Active Icosapent Ethyl 1 g capsule Take 2 g by mouth daily Active isosorbide mononitrate (IMDUR) 30 MG 24 hr tablet 07/09/2020 Active latanoprost (XALATAN) 0.005 % ophthalmic solution INT 1 GTT IN OU HS 05/01/2020 Active metFORMIN (GLUCOPHAGE) 1000 MG tablet TK 1 T PO D 05/03/2020 Active Calcium Carbonate-Vitamin D3 600-400 MG-UNIT tablet Take according to [id number] package directions 11/24/2007 Active Cholecalciferol (Vitamin D3) 25 MCG (1000 UT) capsule Take by mouth Acti ve aspirin 81 MG chewable tablet Chew 81 mg 1 (one) time each day Active glimepiride (AMARYL) 2 MG tablet TAKE 1 TABLET BY MOUTH TWICE DAILY WITH MEAL 07/02/2021 Active Ozempic, 1 MG/DOSE, 4 MG/3ML solution pen-injector ADMINISTER 1 MG UNDER THE SKIN WEEKLY 08/22/2021 Active Active Problems Problem Noted Date Diagnosed Date Stage 3b chronic kidney disease 07/17/2020 Orthostatic hypotension 07/15/2020 Hypertension 10/28/2013 Overview (07/17/2020): HYPERTENSION NOS Mixed hyperlipidemia 10/28/2013 Overview (07/17/2020): MIXED HYPERLIPIDEMIA Type 2 diabetes mellitus 10/28/2013 Overview (10/11/2020): DMII WO CMP UNCNTRLD Immunizations Name Administration Dates Next Due Influenza TIV (IM) 08/27/2021(Deferred: Patient Refused) Pneumococcal Conjugate 08/27/2021(Deferred: Amelia ent Refused) Family History Medical History Relation Comments Kidney cancer Neg Hx Social History Tobacco Use Types Packs/Day Years Used Date Smoking Tobacco: Never Smokeless Tobacco: Never Alcohol Use Standard Drinks/Week Comments Not Currently 0 (1 standard drink = 0.6 oz pur e alcohol) Sex and Gender Information Value Date Recorded Sex Assigned at Not on file Gender Identity Not on file Sexual Orientation Not on file Last Filed Vital Signs Vital Sign Reading Time Taken Comments Blood Pressure 112/60 03/04/2022 9:34 AM CDT Pulse 72 03/04/2022 9:34 AM CDT Temperature 35.1 C (95.2 F) 03/04/2022 9:34 AM CDT Respiratory Rate - - Oxygen Saturation - - Inhaled Oxygen Concentration - - Weight 59.9 kg (132 lb) 03/04/2022 9:34 AM CDT Height 162.6 cm (5' 4 ) 03/04/2022 9:34 AM CDT Body Mass Index 22.66 03/04/2022 9:34 AM CDT Plan of Treatment Health Maintenance Due Date Last Done Comments Pneumococcal PPSV23/PCV13 65 + Years / High and Highest Risk (1 of 4 - PCV) 1954 Diabetic Foot Exam 1958 Ophthalmology Exam 1958 Influenza Vaccine (#1) 2024 Care Teams Billet Recorder Relationship Specialty Start Date End Date Daniel Potter DO [address] [place] [address] PCP - General Internal Medicine 07/17/20
--- OUTSIDE RECORDS SUMMARY | 2024-08-16 10:23 | XMS_ITS | Continuity of Care Document ---
Author Organization [facility] Address [address] [place] [address] Phone Care Team Providers Care Assembly Supervisor Name Role Phone Jenni Turcios Unavailable Unavailable [...] Providers Copied on Encounter Office/outpat ient Visit, [place], [address], [place], [place], [id number], [place] tel:[phone] [facility] No Information 0 Karolina Arteaga. [address] , [address], [place], [address], [place]. tel:[phone] Office/outpat ient Visit, [place], [address], [place], [place], [id number], [place] tel:[phone] [facility] No Information -201 0 Karolina Savage [facility] , [address], [place], [place], [facility], . tel:[phone] Referring Provider: Jenni Ghosh, [address], [place], [facility]. tel:[phone] [facility], [address] [place] [address] [address], [place], [place], [id number], tel:[phone] [facility] No Information -201 0 Karolina Savage [facility] , [address], [place], [facility], . tel:[phone] Referring Provider: Jenni Ghosh, [address] [facility] [address], [place], [facility]. tel:[phone] Office/outpat ient Visit, [place], [id number] [place] [address] [address], [place], [place], [id number], tel:[phone] [facility] No Information Sep-0 1-200 9 Karolina Savage [facility] , [address], [place], [facility], . tel:[phone] Office/outpat ient Visit, [place], [id number] [place] [address] [address], [place], [place], [id number], [place] tel:[phone] [facility] No Information May-0 1-200 9 Karolina Villa [address] [facility] , [address], [place], [facility], . tel:[phone] [facility], [address] [place] [address] [address], [place], [place], [id number], tel:[phone] [facility] No Information Dec-2 6-200 8 Turcios Jenni. [address] , [address], [place], [facility], . tel:[phone] Referring Provider: Jenni Ghosh, [address], [place], [facility]. tel:[phone] Office/outpat ient Visit, [facility], [address] [place] [address] [address], [place], [place], [id number], [place] tel:[phone] [facility] No Information 8 Karolina Arteaga. [address] , [address], [place], [facility], [place]. tel:[phone] Office/outpat ient Visit, [place], [address] [place] [address] [address], [place], [place], [id number], [place] tel:[phone] [facility] No Information 8 Karolina Arteaga. [facility] , [address], [place], [facility], [place]. tel:[phone] Referring Provider: Jenni Ghosh, [address], [place], [facility]. tel:[phone] [facility], [address] [place] [address] [address], [place], [place], [id number], [place] tel:[phone] [facility] No Information 7 Karolina Arteaga. [address] , [address], [place], [facility], [place]. tel:[phone] Referring Provider: Jenni Ghosh, [address], [place], [facility]. tel:[phone] Office/outpat ient Visit, [facility], [address] [place] [address] [address], [place], [place], [id number], [place] tel:[phone] [facility] No Information 7 Karolina Arteaga. [address] , [address], [place], [address], [place]. tel:[phone] [facility], [address], [place], [place], [id number], [place] tel:[phone] [facility] No Information 7 Karolina Arteaga. [address] [facility] , [address], [place], [address], [place]. tel:[phone] Family History Family Member Type Diagnosis Age At Onset No Information Payers Payer name Insurance type Covered constitution party ID [facility] [id number] Social History Type Description Quantity Date Captured [...]
[2024-08-16 13:03] LABS: Albumin Level 3.8 g/dL (3.5-5.1); Anion Gap 8 mmol/L (4-12); Blood Urea Nitrogen 13 mg/dL (7-17); Calcium 9.4 mg/dL (8.4-10.2); Carbon Dioxide 29 mmol/L (22-30); Chloride 103 mmol/L (98-107); Estimated Glomerular Filt Rate 55; Glucose 156 mg/dL (65-110); Phosphorus 3.4 mg/dL (2.5-4.5); Potassium 3.8 mmol/L (3.4-5.0); Sodium 140 mmol/L (137-145)
[2024-08-16 13:04] LABS: Hematocrit 39.3 % (37.0-47.0); Mean Corpuscular HGB Conc 30.5 g/dl (32-36); Mean Corpuscular Hemoglobin 24.7 pg (26-34); Mean Corpuscular Volume 80.9 fl (80-100); Mean Platelet Volume 10.6 fl (7.4-10.4); Platelet Count Result 147 k/mm3 (150-375); Red Blood Count 4.86 M/mm3 (4.2-5.4); Red Cell Distribution Width 15.7 % (11.5-14.5); White Blood Count 6.9 K/mm3 (4.5-10.0)
[2024-08-16 13:05] LABS: Alanine Aminotransferase 42 U/L (6-35); Albumin Level 3.8 g/dL (3.5-5.1); Alkaline Phosphatase 78 U/L (38-126); Anion Gap 9 mmol/L (4-12); Aspartate Amino Transferase 57 U/L (14-36); Bilirubin,Total 0.3 mg/dL (0.2-1.3); Blood Urea Nitrogen 13 mg/dL (7-17); Calcium 9.3 mg/dL (8.4-10.2); Carbon Dioxide 29 mmol/L (22-30); Chloride 102 mmol/L (98-107); Cholesterol 152 mg/dL (0-200); Estimated Glomerular Filt Rate 55; Glucose 157 mg/dL (65-110); HDL Direct 46 mg/dL; Potassium 3.8 mmol/L (3.4-5.0); Sodium 140 mmol/L (137-145); Triglycerides 139 mg/dL (<150)
[2024-08-16 13:08] LABS: Parathyroid Intact 27.8 pg/mL (14.5-75.2)
[2024-08-16 13:16] LABS: LDL Cholesterol Direct 63 mg/dL
[2024-08-16 13:48] LABS: Vitamin B12 > 1000.0 pg/mL (239-931)
[2024-08-16 14:21] LABS: Vitamin D 25 Hydroxy 44.3 ng/mL
== END 2024-08-16 09:34 | disposition home or self-care (01) ==
PROVIDERS: Internal Medicine Endocrinology, Diabetes & Metabolism; PCP Nurse Practitioner; Visit Provider Internal Medicine Nephrology
DX: E11.22 Type 2 diabetes mellitus with diabetic chronic kidney disease (principal); N18.32 Chronic kidney disease, stage 3b; E11.21 Type 2 diabetes mellitus with diabetic nephropathy; E11.65 Type 2 diabetes mellitus with hyperglycemia; R79.89 Other specified abnormal findings of blood chemistry
CPT/HCPCS: 36415; 80053; 80061; 80069; 82306; 82607; 83970; 85027

== ENCOUNTER 2024-08-17 10:41 | Outpatient (NON) | payer MEDICARE, SELFPAY ==
--- OUTSIDE RECORDS SUMMARY | 2024-08-17 12:18 | XMS_ITS | Referral Summary ---
Author Organization [facility] [address] Address [address] [place] [address] Care Team Providers Care Civil Preparedness Training Officer Name Role Phone Daniel Potter DO Primary Care Provider [phone] Encounters Date Type Department Care Team Description 07/06/2024 1:00 PM PRODUCT SUPPORT CONSULTANT Office Visit [facility] Cardiology [address] [place] [address] Jay Jay Avalos MD GIMENEZ [...] by mouth daily Active cholecalciferol (VITAMIN D-3) 04123 unit capsule Take 1 capsule (10,000 Units [...] drink = 0.6 oz pur e alcohol) [facility] Utilities Answer Date Recorded In the [...] often do you attend chur ch or mormon services? 1 to 4 times per year 08/05/2023 Do you belong to any clubs o r organizations such as rastafari groups, unions, fraternal or athletic groups, or [...] place to sleep or slept in a half-way (including now)? No 08/05/2023 Personal Safety Answer Date Recorded Have you ever been in or are you currently in a harmful physical or emotional relationship or is someone making you feel afraid or unsafe? Denies 08/01/2023 Comments Unknown Sex and Gender Information Value Date Recorded Sex Assigned at Not on file Legal Sex Female 12:24 AM PRODUCT SUPPORT CONSULTANT Gender Identity Not on file Sexual Orientation Not on file Last Filed Vital Signs Vital Sign Reading Time Taken Comments Blood Pressure 112/68 07/06/2024 12:55 PM PRODUCT SUPPORT CONSULTANT Pulse 100 07/06/2024 12:55 PM PRODUCT SUPPORT CONSULTANT Temperature 36.6 C (97.9 F) 08/04/2023 7:55 AM PRODUCT SUPPORT CONSULTANT Respiratory Rate 18 08/04/2023 7:55 AM PRODUCT SUPPORT CONSULTANT Oxygen Saturation 99% 07/06/2024 12:55 PM PRODUCT SUPPORT CONSULTANT Inhaled Oxygen Concentration - - Weight 59.9 kg (132 lb) 07/06/2024 12:55 PM PRODUCT SUPPORT CONSULTANT Height 160 cm (5' 3 ) 07/06/2024 12:55 PM PRODUCT SUPPORT CONSULTANT Body Mass Index 23.38 07/06/2024 12:55 PM PRODUCT SUPPORT CONSULTANT Plan of Treatment Not on file Procedures Procedure Name Priority Date/Time Associated Diagnosis Comments PRO B-TYPE NATRIURETIC PEPTIDE Routine 07/06/2024 GIMENEZ (dyspnea on exertion) TSH Routine 07/06/2024 GIMENEZ (dyspnea on exertion) COMPREHENSIVE METABOLIC PANEL Routine 07/06/2024 GIMENEZ (dyspnea on exertion) HEMOGLOBIN A1C Timed 08/03/2023 8:49 AM PRODUCT SUPPORT CONSULTANT LIPID PANEL STAT 08/01/2023 9:37 PM PRODUCT SUPPORT CONSULTANT from Last 3 Months or Most Recently Relevant to Health Maintenance Results * Pro B-type natriuretic peptide (07/06/2024) SCRIBED NT PROBNP 30 19.9 - 100 EXTERNAL LAB Blood 07/06/2024 Jay Jay Avalos MD LAB BLOOD ORDERABLES Fi nal Result EXTERNAL LAB * TSH (07/06/2024) Pathologist [facility] Scribed TSH 0.62 0.47 - 4.68 mcU/mL [...] N/A EXTERNAL LAB SCRIBED eGFR in NonAfrican Palestinian 53 > or = 60 EXTERNAL LAB Blood 07/06/2024 us Jay Jay Avalos MD LAB BLOOD ORDERABLES Fi nal Result Performing Organization Address City/[facility]/ZIP Co de Phone Number EXTERNAL LAB * (ABNORMAL) Hemoglobin A1c (08/03/2023 8:49 AM PRODUCT SUPPORT CONSULTANT) Hgb A1C 7.2(H) 4.0 - 5.6 % [facility] Estimated Average Glucose 160 mg/dL [facility] Comment: The ADA recommends reporting an estimated Average Glucose (eAG) with all Hemoglobin A1c results using the equation derived from a study of 507 normal and diabetic adults. Minority populations were underrepresented and children were not included. (Diabetes Care 2020; 43(S1): S66-S76). The eAG is not equivalent to a fasting glucose. Blood 08/03/2023 8:49 AM PRODUCT SUPPORT CONSULTANT 08/03/2023 9:27 AM PRODUCT SUPPORT CONSULTANT us Twyla Castellon MD PhD LAB BLOOD ORDERABLES Final Result Performing Organization Address City/[facility]/ZIP Co de Phone Number [facility] Department [place] [address] * (ABNORMAL) Lipid panel (08/01/2023 9:37 PM PRODUCT SUPPORT CONSULTANT) Cholesterol 121 30 - 199 mg/dL [facility] Comment: Interpretive Data Ages < or = [...] revised on 2018. Triglycerides 131 <=149 mg/dL [facility] Comment: Interpretive Data Ages < or = [...] revised on 2018. HDL 37(L) >=40 mg/dL [facility] Comment: Interpretive Data Ages < or = [...] on 2018. LDL, calculated 58 <=129 mg/dL [facility] Comment: Interpretive Data Ages < or = [...] on 2018. Non-HDL Cholesterol 84 mg/dL [facility] Comment: Interpretive Data Ages < or = [...] last revised on 2018. Chol/HDL ratio 3 [facility] Blood 08/01/2023 9:37 PM PRODUCT SUPPORT CONSULTANT 08/01/2023 10:16 PM PRODUCT SUPPORT CONSULTANT us Twyla Castellon MD PhD LAB BLOOD ORDERABLES Final Result [facility] Department [place] [address] from Last 3 Months or Most Recently Relevant to Health Maintenance Insurance AETNA MEDICARE [facility] MEDICARE Address: [facility] [id number] [place] [id number] [facility] MEDICARE AETNA MEDICARE Advance Directives For more information, please contact: [phone] * Full Code (Latest Code Status on File) Date Activated Date Inactivated Comments 08/01/2023 8:59 PM 08/04/2023 7:13 PM Care Teams Civil Preparedness Training Officer Relationship Specialty Start Date End Date Daniel Potter DO PCP - General 11/20/10
--- OUTSIDE RECORDS SUMMARY | 2024-08-17 12:18 | XMS_ITS | Clinical Summary ---
Author Organization [facility] Address [address] [place] [address] Phone Care Team Providers Care Promotions Director Name Role Phone Daniel Potter DO Primary Care Provider [phone] Allergies Active Allergy Reactions Criticality Noted Date [...] D3 600-400 MG-UNIT tablet Take according to tyxa-igg-roiletb package directions 11/24/2007 Active Cholecalciferol (Vitamin D3) [...] 1960 Influenza Vaccine (#1) 2024 Care Teams Promotions Director Relationship Specialty Start Date End Date Daniel Potter DO [address] [place] [address] PCP - General Internal Medicine 07/17/20
--- OUTSIDE RECORDS SUMMARY | 2024-08-17 12:18 | XMS_ITS | Clinical Summary ---
Author Organization [facility] [address] Address [address] [place] [address] Care Team Providers Care Customs Compliance Manager Name Role Phone RubensildaDaniel DO Primary Care Provider [phone] Allergies Active Allergy Reactions Criticality Noted Date [...] by mouth daily Active cholecalciferol (VITAMIN D-3) 58373 unit capsule Take 1 capsule (10,000 Units [...] Department Care Team Description 07/06/2024 1:00 PM DIRECTOR CUSTOM Office Visit [facility] Medical Group Cardiology [address] [place] [address] Jay Jay Avalos MD DOE [...] Father cause of Coronary artery disease Mother [place] i n her late 60's Pulmonary fibrosis [...] drink = 0.6 oz pur e alcohol) [facility] Utilities Answer Date Recorded In the past 12 months has e [employer], gas, oil, or water [employer] threatened to shut off services in your [...] often do you attend chur ch or latter day services? 1 to 4 times per year 08/05/2023 Do you belong to any clubs o r organizations such as episcopalian groups, unions, fraternal or athletic groups, or [...] place to sleep or slept in a longterm (including now)? No 08/05/2023 Personal Safety Answer Date Recorded Have you ever been in or are you currently in a harmful physical or emotional relationship or is someone making you feel afraid or unsafe? Denies 08/01/2023 Comments Unknown Sex and Gender Information Value Date Recorded Sex Assigned at Not on file Legal Sex Female 12:24 AM DIRECTOR CUSTOM Gender Identity Not on file Sexual Orientation Not on file Obstetrics History Last Filed Vital Signs Vital Sign Reading Time Taken Comments Blood Pressure 112/68 07/06/2024 12:55 PM DIRECTOR CUSTOM Pulse 100 07/06/2024 12:55 PM DIRECTOR CUSTOM Temperature 36.6 C (97.9 F) 08/04/2023 7:55 AM DIRECTOR CUSTOM Respiratory Rate 18 08/04/2023 7:55 AM DIRECTOR CUSTOM Oxygen Saturation 99% 07/06/2024 12:55 PM DIRECTOR CUSTOM Inhaled Oxygen Concentration - - Weight 59.9 kg (132 lb) 07/06/2024 12:55 PM DIRECTOR CUSTOM Height 160 cm (5' 3 ) 07/06/2024 12:55 PM DIRECTOR CUSTOM Body Mass Index 23.38 07/06/2024 12:55 PM DIRECTOR CUSTOM Plan of Treatment Health Maintenance Due Date [...] Comments PRO B-TYPE NATRIURETIC PEPTIDE Routine 07/06/2024 GIEMNEZ (dyspnea on exertion) TSH Routine 07/06/2024 GIMENEZ (dyspnea on exertion) COMPREHENSIVE METABOLIC PANEL Routine 07/06/2024 GIMENEZ (dyspnea on exertion) HEMOGLOBIN A1C Timed 08/03/2023 8:49 AM DIRECTOR CUSTOM LIPID PANEL STAT 08/01/2023 9:37 PM DIRECTOR CUSTOM from Last 3 Months or Most Recently [...] N/A EXTERNAL LAB SCRIBED eGFR in NonAfrican Russian 53 > or = 60 EXTERNAL LAB Blood 07/06/2024 us Jay Jay Avalos MD LAB BLOOD ORDERABLES nal Result EXTERNAL LAB * (ABNORMAL) Hemoglobin A1c (08/03/2023 8:49 AM DIRECTOR CUSTOM) Hgb A1C 7.2(H) 4.0 - 5.6 % YARON PRATT Estimated Average Glucose 160 mg/dL [facility] Comment: The ADA recommends reporting an estimated Average Glucose (eAG) with all Hemoglobin A1c results using the equation derived from a study of 507 normal and diabetic adults. Minority populations were underrepresented and children were not included. (Diabetes Care 2020; 43(S1): S66-S76). The eAG is not equivalent to a fasting glucose. Blood 08/03/2023 8:49 AM DIRECTOR CUSTOM 08/03/2023 9:27 AM DIRECTOR CUSTOM us Twyla Castellon MD PhD LAB BLOOD ORDERABLES Final Result YARON PRATT [facility] Department [place] [address] * (ABNORMAL) Lipid panel (08/01/2023 9:37 PM DIRECTOR CUSTOM) Cholesterol 121 30 - 199 mg/dL [facility] Comment: Interpretive Data Ages < or [...] on 2018. Triglycerides 131 <=149 mg/dL [facility] Comment: Interpretive Data Ages < or [...] on 2018. HDL 37(L) >=40 mg/dL [facility] Comment: Interpretive Data Ages < or [...] on 2018. LDL, calculated 58 <=129 mg/dL [facility] Comment: Interpretive Data Ages < [...] revised on 2018. Non-HDL Cholesterol 84 mg/dL [facility] Comment: Interpretive Data Ages < [...] last revised on 2018. Chol/HDL ratio 3 [facility] Blood 08/01/2023 9:37 PM DIRECTOR CUSTOM 08/01/2023 10:16 PM DIRECTOR CUSTOM Twyla Castellon MD PhD LAB BLOOD ORDERABLES Final Result [facility] Department [place] [address] from Last 3 Months or Most Recently Relevant to Health Maintenance Insurance AETNA MEDICARE [facility] MEDICARE [facility] MEDICARE Advance Directives For more information, please contact: [phone] * Full Code (Latest Code Status on File) Date Activated Date Inactivated Comments 08/01/2023 8:59 PM 08/04/2023 7:13 PM Care Teams Customs Compliance Manager Relationship Specialty Start Date End Date Daniel Potter DO [facility] - General 11/20/10
--- OUTSIDE RECORDS SUMMARY | 2024-08-17 12:18 | XMS_ITS | Continuity of Care Document ---
Author Organization [facility] Address [address] [place] [address] Phone Care Team Providers Care Senior Windows Systems Administrator Name Role Phone Jenni Turcios Unavailable Unavailable [...] Providers Copied on Encounter Office/outpat ient Visit, [facility], [address], [place], [place], [id number], [place] tel:[phone] [facility] No Information 0 Karolina Arteaga. [address] , [address], [place], [address], [place]. tel:[phone] Office/outpat ient Visit, [facility], [address], [place], [place], [id number], [place] tel:[phone] [facility] No Information -201 0 Karolina Savage [facility] , [address], [place], [place], [facility], . tel:[phone] Referring Provider: Jenni Ghosh, [address], [place], [place], [facility]. tel:[phone] [facility], [address] [place] [address] [address], [place], [place], [address], tel:[phone] [facility] No Information -201 0 Karolina Savage [facility] , [address], [place], [facility], . tel:[phone] Referring Provider: Jenni Ghosh, [address] [facility] [address], [place], [facility]. tel:[phone] Office/outpat ient Visit, [facility], [address] [place] [address] [address], [place], [place], [id number], tel:[phone] [facility] No Information Sep-0 1-200 9 Karolina Savage [facility] , [address], [place], [facility], . tel:[phone] Office/outpat ient Visit, [facility], [address] [place] [address] [address], [place], [place], [address], [place] tel:[phone] [facility] No Information May-0 1-200 9 Karolina Villa [address] [facility] , [address], [place], [facility], . tel:[phone] [facility], [address] [place] [address] [address], [place], [place], [id number], tel:[phone] [facility] No Information Dec-2 6-200 8 Turcios Jenni. [address] , [address], [place], [facility], . tel:[phone] Referring Provider: Jenni Ghosh, [address], [place], [facility]. tel:[phone] Office/outpat ient Visit, [facility], [address] [place] [address] [address], [place], [place], [id number], [place] tel:[phone] [facility] No Information 8 Karolina Arteaga. [address] , [address], [place], [facility], [place]. tel:[phone] Office/outpat ient Visit, [facility], [address] [place] [address] [address], [place], [place], [address], [place] tel:[phone] [facility] No Information 8 Karolina Arteaga. [facility] , [address], [place], [facility], [place]. tel:[phone] Referring Provider: Jenni Ghosh, [address], [place], [facility]. tel:[phone] [facility], [address] [place] [address] [address], [place], [place], [id number], [place] tel:[phone] [facility] No Information 7 Karolina Arteaga. [address] , [address], [place], [facility], [place]. tel:[phone] Referring Provider: Jenni Ghosh, [address], [place], [facility]. tel:[phone] Office/outpat ient Visit, [facility], [address] [place] [address] [address], [place], [place], [id number], [place] tel:[phone] [facility] No Information 7 Karolina Arteaga. [address] , [address], [place], [address], [place]. tel:[phone] [facility], [address], [place], [place], [address], [place] tel:[phone] [facility] No Information 7 Karolina Arteaga. [address] [facility] , [address], [place], [address], [place]. tel:[phone] Family History Family Member Type Diagnosis Age At Onset No Information Payers Payer name Insurance type Covered libertarian [facility] [id number] Social History Type Description Quantity Date Captured [...]
[2024-08-17 13:12] LABS: Creatinine Urine 51.5 mg/dL; Total Protein Urine Random 21 mg/dL; Ur Ttl Prot Creatinine Ratio 0.41 mg/mg (0-0.20)
== END 2024-08-17 10:42 | disposition home or self-care (01) ==
LOC: ANHGOSHLAB 10:43
PROVIDERS: PCP Nurse Practitioner; Visit Provider Internal Medicine Nephrology
DX: E11.65 Type 2 diabetes mellitus with hyperglycemia (principal); E11.22 Type 2 diabetes mellitus with diabetic chronic kidney disease; N18.32 Chronic kidney disease, stage 3b; R79.89 Other specified abnormal findings of blood chemistry
CPT/HCPCS: 82570; 84156

== ENCOUNTER 2024-08-21 14:58 | Outpatient (CLI) | payer MEDICARE, SELFPAY ==
--- NOTE | ~2024-08-21 | CT_ITS ---
EXAMINATION:CT diagnostic chest wo con DATE: 08/21/2024 15:17 INDICATION: Solitary pulmonary nodule. TECHNIQUE: Computed tomography (CT) of the chest was performed without intravenous contrast. Automate d exposure control and iterative reconstruction technique were employed. The dose-length product (DLP ) was 67.83 mGy-cm. COMPARISON: Chest CT 12/17/2023 FINDINGS: A calcified right lung nodule and calcified right hilar and mediastinal lymph nodes are con sistent with old granulomatous disease. There is a stable 4 mm nodule in right lower lobe, likely nevin ign. No pleural effusion. The heart size is normal. There are coronary artery calcifications. No pdero cardial effusion. There are gallstones in the gallbladder, which is normal in size. Calcifications in the liver and spleen are consistent with old granulomatous disease. There is mild thoracic spondylos is. IMPRESSION: 1. Stable small pulmonary nodule, likely benign. Reviewed, dictated and finalized at location B.
--- OUTSIDE RECORDS SUMMARY | 2024-08-21 17:35 | XMS_ITS | Continuity of Care Document ---
Author Organization [facility] Address [address] [place] [address] Phone Care Team Providers Care Legger Press Operator Name Role Phone Jenni Turcios Unavailable Unavailable [...] Providers Copied on Encounter Office/outpat ient Visit, [facility], [address], [place], [place], [id number], [place] tel:[phone] [facility] No Information 0 Karolina Arteaga. [address] , [address], [place], [address], [place]. tel:[phone] Office/outpat ient Visit, [facility], [address], [place], [place], [address], [place] tel:[phone] [facility] No Information -201 0 Karolina Savage [facility] , [address], [place], [place], [facility], . tel:[phone] Referring Provider: Jenni Ghosh, [address], [place], [place], [facility]. tel:[phone] [facility], [address] [place] [address] [address], [place], [place], [address], tel:[phone] [facility] No Information -201 0 Karolina Savage [facility] , [address], [place], [facility], . tel:[phone] Referring Provider: Jenni Ghosh, [address] [facility] [address], [place], [facility]. tel:[phone] Office/outpat ient Visit, [facility], [address] [place] [address] [address], [place], [place], [address], tel:[phone] [facility] No Information Sep-0 1-200 9 Karolina Savage [facility] , [address], [place], [place], [facility], . tel:[phone] Office/outpat ient Visit, [facility], [address] [place] [address] [address], [place], [place], [address], [place] tel:[phone] [facility] No Information May-0 1-200 9 Karolina Villa [address] [facility] , [address], [place], [place], [facility], . tel:[phone] [facility], [address] [place] [address] [address], [place], [place], [address], tel:[phone] [facility] No Information Dec-2 6-200 8 Turcios Jenni. [address] , [address], [place], [facility], . tel:[phone] Referring Provider: Jenni Ghosh, [address], [place], [facility]. tel:[phone] Office/outpat ient Visit, [facility], [address] [place] [address] [address], [place], [place], [address], [place] tel:[phone] [facility] No Information 8 Karolina Arteaga. [address] , [address], [place], [facility], [place]. tel:[phone] Office/outpat ient Visit, [facility], [address] [place] [address] [address], [place], [place], [id number], [place] tel:[phone] [facility] No Information 8 Karolina Arteaga. [facility] , [address], [place], [facility], [place]. tel:[phone] Referring Provider: Jenni Ghosh, [address], [place], [facility]. tel:[phone] [facility], [address] [place] [address] [address], [place], [place], [id number], [place] tel:[phone] [facility] No Information 7 Karolina Arteaga. [address] , [address], [place], [facility], [place]. tel:[phone] Referring Provider: Jenni Ghosh, [address], [place], [facility]. tel:[phone] Office/outpat ient Visit, [facility], [address] [place] [address] [address], [place], [place], [address], [place] tel:[phone] [facility] No Information 7 Karolina Arteaga. [address] , [address], [place], [address], [place]. tel:[phone] [facility], [address], [place], [place], [address], [place] tel:[phone] [facility] No Information 7 Karolina Arteaga. [address] [facility] , [address], [place], [address], [place]. tel:[phone] Family History Family Member Type Diagnosis Age At Onset No Information Payers Payer name Insurance type Covered constitution party ID [facility] [id number] Social History Type Description Quantity Date Captured [...]
--- OUTSIDE RECORDS SUMMARY | 2024-08-21 17:35 | XMS_ITS | Clinical Summary ---
Author Organization [facility] [place] [address] Address [address] [place] [address] Care Team Providers Care Oil Burner Installer Name Role Phone Daniel Potter DO Primary Care Provider [phone] Allergies Active Allergy Reactions Criticality Noted Date [...] by mouth daily Active cholecalciferol (VITAMIN D-3) 55055 unit capsule Take 1 capsule (10,000 Units [...] Department Care Team Description 07/06/2024 1:00 PM ASSOCIATE PROFESSOR OF PHILOSOPHY Office Visit [facility] Medical [facility] Cardiology [address] [place] [address] Jay Jay Avalos MD DOE [...] Father cause of Coronary artery disease Mother [place] i n her late 60's Pulmonary fibrosis [...] drink = 0.6 oz pur e alcohol) [facility] Utilities Answer Date Recorded In the past 12 months has [employer], gas, oil, or water [employer] threatened to shut off services in your [...] often do you attend chur ch or taoism services? 1 to 4 times per year 08/05/2023 Do you belong to any clubs o r organizations such as islam groups, unions, fraternal or athletic groups, or [...] place to sleep or slept in a snf (including now)? No 08/05/2023 Personal Safety Answer Date Recorded Have you ever been in or are you currently in a harmful physical or emotional relationship or is someone making you feel afraid or unsafe? Denies 08/01/2023 Comments Unknown Sex and Gender Information Value Date Recorded Sex Assigned at Not on file Legal Sex Female 12:24 AM ASSOCIATE PROFESSOR OF PHILOSOPHY Gender Identity Not on file Sexual Orientation Not on file Obstetrics History Last Filed Vital Signs Vital Sign Reading Time Taken Comments Blood Pressure 112/68 07/06/2024 12:55 PM ASSOCIATE PROFESSOR OF PHILOSOPHY Pulse 100 07/06/2024 12:55 PM ASSOCIATE PROFESSOR OF PHILOSOPHY Temperature 36.6 C (97.9 F) 08/04/2023 7:55 AM ASSOCIATE PROFESSOR OF PHILOSOPHY Respiratory Rate 18 08/04/2023 7:55 AM ASSOCIATE PROFESSOR OF PHILOSOPHY Oxygen Saturation 99% 07/06/2024 12:55 PM ASSOCIATE PROFESSOR OF PHILOSOPHY Inhaled Oxygen Concentration - - Weight 59.9 kg (132 lb) 07/06/2024 12:55 PM ASSOCIATE PROFESSOR OF PHILOSOPHY Height 160 cm (5' 3 ) 07/06/2024 12:55 PM ASSOCIATE PROFESSOR OF PHILOSOPHY Body Mass Index 23.38 07/06/2024 12:55 PM ASSOCIATE PROFESSOR OF PHILOSOPHY Plan of Treatment Health Maintenance Due Date [...] exertion) HEMOGLOBIN A1C Timed 08/03/2023 8:49 AM ASSOCIATE PROFESSOR OF PHILOSOPHY LIPID PANEL STAT 08/01/2023 9:37 PM ASSOCIATE PROFESSOR OF PHILOSOPHY from Last 3 Months or Most Recently [...] N/A EXTERNAL LAB SCRIBED eGFR in NonAfrican Cambodian 53 > or = 60 EXTERNAL LAB Blood 07/06/2024 us Jay Jay Avalos MD LAB BLOOD ORDERABLES Fi nal Result EXTERNAL LAB * (ABNORMAL) Hemoglobin A1c (08/03/2023 8:49 AM ASSOCIATE PROFESSOR OF PHILOSOPHY) Hgb A1C 7.2(H) 4.0 - 5.6 % YARON PRATT Estimated Average Glucose 160 mg/dL YARON [facility] Comment: The ADA recommends reporting an estimated Average Glucose (eAG) with all Hemoglobin A1c results using the equation derived from a study of 507 normal and diabetic adults. Minority populations were underrepresented and children were not included. (Diabetes Care 2020; 43(S1): S66-S76). The eAG is not equivalent to a fasting glucose. Blood 08/03/2023 8:49 AM ASSOCIATE PROFESSOR OF PHILOSOPHY 08/03/2023 9:27 AM ASSOCIATE PROFESSOR OF PHILOSOPHY us Twyla Castellon MD PhD LAB BLOOD ORDERABLES Final Result YARON PRATT [facility] Department [place] [address] * (ABNORMAL) Lipid panel (08/01/2023 9:37 PM ASSOCIATE PROFESSOR OF PHILOSOPHY) Cholesterol 121 30 - 199 mg/dL YARON [facility] Comment: Interpretive Data Ages < [...] on 2018. Triglycerides 131 <=149 mg/dL YARON [facility] Comment: Interpretive Data Ages < [...] on 2018. HDL 37(L) >=40 mg/dL YARON [facility] Comment: Interpretive Data Ages < [...] 2018. LDL, calculated 58 <=129 mg/dL [facility] Comment: Interpretive Data Ages < or = [...] on 2018. Non-HDL Cholesterol 84 mg/dL [facility] Comment: Interpretive Data Ages < or = [...] revised on 2018. Chol/HDL ratio 3 [facility] Blood 08/01/2023 9:37 PM ASSOCIATE PROFESSOR OF PHILOSOPHY 08/01/2023 10:16 PM ASSOCIATE PROFESSOR OF PHILOSOPHY Twyla Castellon MD PhD LAB BLOOD ORDERABLES Final Result [facility] Department [place] [address] from Last 3 Months or Most Recently Relevant to Health Maintenance Insurance AETNA MEDICARE [facility] MEDICARE [facility] MEDICARE Advance Directives For more information, please contact: [phone] * Full Code (Latest Code Status on File) Date Activated Date Inactivated Comments 08/01/2023 8:59 PM 08/04/2023 7:13 PM Care Teams Oil Burner Installer Relationship Specialty Start Date End Date Daniel Potter DO PCP - General 11/20/10
--- OUTSIDE RECORDS SUMMARY | 2024-08-21 17:35 | XMS_ITS | Clinical Summary ---
Author Organization [facility] Address [address] [place] [address] Phone Care Team Providers Care Scale Tester Name Role Phone Daniel Potter DO Primary Care Provider [phone] Allergies Active Allergy Reactions Criticality Noted Date [...] D3 600-400 MG-UNIT tablet Take according to [id number] package directions 11/24/2007 Active Cholecalciferol (Vitamin D3) [...] 1960 Influenza Vaccine (#1) 2024 Care Teams Scale Tester Relationship Specialty Start Date End Date Daniel Potter DO [address] [place] [address] PCP - General Internal Medicine 07/17/20
--- OUTSIDE RECORDS SUMMARY | 2024-08-21 17:35 | XMS_ITS | Referral Summary ---
Author Organization [facility] [address] [facility] [address] Address [address] [place] [address] Care Team Providers Care Char Filter Operator Helper Name Role Phone Daniel Potter DO Primary Care Provider [phone] Encounters Date Type Department Care Team Description 07/06/2024 1:00 PM CLINICAL EDUCATION ACADEMIC COORDINATOR Office Visit [facility] Cardiology [address] [place] [address] Jay Jay Avalos MD GIMENEZ [...] by mouth daily Active cholecalciferol (VITAMIN D-3) 67729 unit capsule Take 1 capsule (10,000 Units [...] drink = 0.6 oz pur e alcohol) [facility] Utilities Answer Date Recorded In the [...] often do you attend chur ch or religion services? 1 to 4 times per year 08/05/2023 Do you belong to any clubs o r organizations such as sabianism groups, unions, fraternal or athletic groups, or [...] place to sleep or slept in a residential (including now)? No 08/05/2023 Personal Safety Answer Date Recorded Have you ever been in or are you currently in a harmful physical or emotional relationship or is someone making you feel afraid or unsafe? Denies 08/01/2023 Comments Unknown Sex and Gender Information Value Date Recorded Sex Assigned at Not on file Legal Sex Female 12:24 AM CLINICAL EDUCATION ACADEMIC COORDINATOR Gender Identity Not on file Sexual Orientation Not on file Last Filed Vital Signs Vital Sign Reading Time Taken Comments Blood Pressure 112/68 07/06/2024 12:55 PM CLINICAL EDUCATION ACADEMIC COORDINATOR Pulse 100 07/06/2024 12:55 PM CLINICAL EDUCATION ACADEMIC COORDINATOR Temperature 36.6 C (97.9 F) 08/04/2023 7:55 AM CLINICAL EDUCATION ACADEMIC COORDINATOR Respiratory Rate 18 08/04/2023 7:55 AM CLINICAL EDUCATION ACADEMIC COORDINATOR Oxygen Saturation 99% 07/06/2024 12:55 PM CLINICAL EDUCATION ACADEMIC COORDINATOR Inhaled Oxygen Concentration - - Weight 59.9 kg (132 lb) 07/06/2024 12:55 PM CLINICAL EDUCATION ACADEMIC COORDINATOR Height 160 cm (5' 3 ) 07/06/2024 12:55 PM CLINICAL EDUCATION ACADEMIC COORDINATOR Body Mass Index 23.38 07/06/2024 12:55 PM CLINICAL EDUCATION ACADEMIC COORDINATOR Plan of Treatment Not on file Procedures Procedure Name Priority Date/Time Associated Diagnosis Comments PRO B-TYPE NATRIURETIC PEPTIDE Routine 07/06/2024 GIMENEZ (dyspnea on exertion) TSH Routine 07/06/2024 GIMENEZ (dyspnea on exertion) COMPREHENSIVE METABOLIC PANEL Routine 07/06/2024 GIMENEZ (dyspnea on exertion) HEMOGLOBIN A1C Timed 08/03/2023 8:49 AM CLINICAL EDUCATION ACADEMIC COORDINATOR LIPID PANEL STAT 08/01/2023 9:37 PM CLINICAL EDUCATION ACADEMIC COORDINATOR from Last 3 Months or Most Recently Relevant to Health Maintenance Results * Pro B-type natriuretic peptide (07/06/2024) SCRIBED NT PROBNP 30 19.9 - 100 EXTERNAL LAB Blood 07/06/2024 Jay Jay Avalos MD LAB BLOOD ORDERABLES Fi nal Result Performing Organization Address City/[facility]/ZIP Co de Phone Number EXTERNAL LAB * TSH (07/06/2024) Pathologist [facility] Scribed TSH 0.62 0.47 - 4.68 mcU/mL [...] N/A EXTERNAL LAB SCRIBED eGFR in NonAfrican Beninese 53 > or = 60 EXTERNAL LAB Blood 07/06/2024 us Jay Jay Avalos MD LAB BLOOD ORDERABLES Fi nal Result Performing Organization Address City/[facility]/ZIP Co de Phone Number EXTERNAL LAB * (ABNORMAL) Hemoglobin A1c (08/03/2023 8:49 AM CLINICAL EDUCATION ACADEMIC COORDINATOR) Hgb A1C 7.2(H) 4.0 - 5.6 % [facility] Estimated Average Glucose 160 mg/dL [facility] Comment: The ADA recommends reporting an estimated Average Glucose (eAG) with all Hemoglobin A1c results using the equation derived from a study of 507 normal and diabetic adults. Minority populations were underrepresented and children were not included. (Diabetes Care 2020; 43(S1): S66-S76). The eAG is not equivalent to a fasting glucose. Blood 08/03/2023 8:49 AM CLINICAL EDUCATION ACADEMIC COORDINATOR 08/03/2023 9:27 AM CLINICAL EDUCATION ACADEMIC COORDINATOR us Twyla Castellon MD PhD LAB BLOOD ORDERABLES Final Result Performing Organization Address City/[facility]/ZIP Co de Phone Number [facility] One [facility] Department [place] [address] * (ABNORMAL) Lipid panel (08/01/2023 9:37 PM CLINICAL EDUCATION ACADEMIC COORDINATOR) Cholesterol 121 30 - 199 mg/dL [facility] Comment: Interpretive Data Ages < [...] on 2018. Triglycerides 131 <=149 mg/dL [facility] Comment: Interpretive Data Ages < [...] on 2018. HDL 37(L) >=40 mg/dL [facility] Comment: Interpretive Data Ages < [...] 2018. LDL, calculated 58 <=129 mg/dL [facility] Comment: Interpretive Data Ages < [...] on 2018. Non-HDL Cholesterol 84 mg/dL [facility] Comment: Interpretive Data Ages < or = [...] last revised on 2018. Chol/HDL ratio 3 [facility] Blood 08/01/2023 9:37 PM CLINICAL EDUCATION ACADEMIC COORDINATOR 08/01/2023 10:16 PM CLINICAL EDUCATION ACADEMIC COORDINATOR us Twyla Castellon MD PhD LAB BLOOD ORDERABLES Final Result [facility] One [facility] Department [place] [address] from Last 3 Months or Most Recently Relevant to Health Maintenance Insurance [employer]ET[employer] MEDICARE [facility] MEDICARE Address: [facility] [id number] [place] [id number] [facility] MEDICARE A[employer] MEDICARE Advance Directives For more information, please contact: [phone] * Full Code (Latest Code Status on File) Date Activated Date Inactivated Comments 08/01/2023 8:59 PM 08/04/2023 7:13 PM Care Teams Char Filter Operator Helper Relationship Specialty Start Date End Date Daniel Potter DO PCP - General 11/20/10
== END 2024-08-21 14:59 | disposition home or self-care (01) ==
PROVIDERS: PCP Nurse Practitioner; Visit Provider Nurse Practitioner
DX: R91.1 Solitary pulmonary nodule (principal)
CPT/HCPCS: 71250

== ENCOUNTER 2025-03-14 12:37 | Outpatient (CLI) | payer MEDICARE, SELFPAY ==
--- OUTSIDE RECORDS SUMMARY | 2010-02-25 08:00 | XMS_ITS | Continuity of Care Document ---
Author Organization [facility] Address [address] [place] [address] Phone Care Team Providers Care Roll Coverer Name Role Phone Jenni Turcios Unavailable Unavailable [...] Providers Copied on Encounter Office/outpat ient Visit, [facility], [address], [place], [place], [address], [place] tel:[phone] [facility] No Information 0 Karolina Arteaga. [address], [place], [address], [place]. tel:[phone] Office/outpat ient Visit, [facility], [address], [place], [place], [address], [place] tel:[phone] [facility] No Information -201 0 Karolina [place] [facility] , [address], [place], [facility], . tel:[phone] Referring Provider: Jenni Ghosh, [address], [place], [facility]. tel:[phone] [facility], [address] [place] [address] [address], [place], [place], [address], tel:[phone] [facility] No Information -201 0 Karolina [place] [facility] , [address], [place], [facility], . tel:[phone] Referring Provider: Jenni Ghosh, [address] [facility] [address], [place], [facility]. tel:[phone] Office/outpat ient Visit, [facility], [address] [place] [address] [address], [place], [place], [address], tel:[phone] [facility] No Information Sep-0 1-200 9 Karolina [place] [facility] , [address], [place], [facility], . tel:[phone] Office/outpat ient Visit, [facility], [address] [place] [address] [address], [place], [place], [address], [place] tel:[phone] [facility] No Information May-0 1-200 9 Karolina Villa [address] [facility] , [address], [place], [facility], . tel:[phone] [facility], [address] [place] [address] [address], [place], [place], [address], tel:[phone] [facility] No Information Dec-2 6-200 8 Turcios Jenni. [address] , [address], [place], [facility], . tel:[phone] Referring Provider: Jenni Ghosh, [address], [place], [facility]. tel:[phone] Office/outpat ient Visit, [facility], [address] [place] [address] [address], [place], [place], [address], [place] tel:[phone] [facility] No Information 8 Karolina Arteaga. [address] , [address], [place], [facility], [place]. tel:[phone] Office/outpat ient Visit, [facility], [address] [place] [address] [address], [place], [place], [address], [place] tel:[phone] [facility] No Information 8 Karolina Arteaga. [facility] , [address], [place], [facility], [place]. tel:[phone] Referring Provider: Jenni Ghosh, [address], [place], [facility]. tel:[phone] [facility], [address] [place] [address] [address], [place], [place], [address], [place] tel:[phone] [facility] No Information 7 Karolina Arteaga. [address] , [address], [place], [facility], [place]. tel:[phone] Referring Provider: Jenni Ghosh, [address], [place], [facility]. tel:[phone] Office/outpat ient Visit, [facility], [address] [place] [address] [address], [place], [place], [address], [place] tel:[phone] [facility] No Information 7 Karolina Arteaga. [address] , [address], [place], [address], [place]. tel:[phone] [facility], [address], [place], [place], [address], [place] tel:[phone] [facility] No Information 7 Karolina Arteaga. [address] [facility] , [address], [place], [address], [place]. tel:[phone] Family History Family Member Type Diagnosis Age At Onset No Information Payers Payer name Insurance type Covered constitution party ID [facility] Green[facility]ty(s) [facility] [id number] Social History Type Description Quantity Date Captured [...]
--- OUTSIDE RECORDS SUMMARY | 2025-03-14 12:40 | XMS_ITS | Clinical Summary ---
Author Organization [facility] Address [address] [place] [id number] Phone Care Team Providers Care Oil Well Services Supervisor Name Role Phone Daniel Potter DO Primary Care Provider [phone] Allergies Active Allergy Reactions Criticality Noted Date Comments Lincomycin Other (see comments) Low 07/15/2020 Throat closes Penicillins Anaphylaxis High 07/17/2020 Reaction: ANAPHYLAXIS, , Medications carvedilol (COREG) 3.125 MG tablet 1 Active atorvastatin (LIPITOR) 40 MG tablet Take 40 mg by mouth 1 (one) time each day 1 Active dexamethasone 0.5 MG/5ML elixir Take by mouth daily Swish and spit Active fexofenadine-pse udoephedrine (Holley-D Allergy & Congestion) 60-120 MG per 12 hr tablet Take one by mouth one time per day 7 Active Icosapent Ethyl 1 g capsule Take 2 g by mouth daily Active isosorbide mononitrate (IMDUR) 30 MG 24 hr tablet 1 Active latanoprost (XALATAN) 0.005 % ophthalmic solution INT 1 GTT IN OU HS 0 Active metFORMIN (GLUCOPHAGE) 1000 MG tablet TK 1 T PO D 0 Active Calcium Carbonate-Vitami n D3 600-400 MG-UNIT tablet Take according to ehoh-yyg-hbmvau r package directions 8 Active Cholecalciferol (Vitamin D3) 25 MCG (1000 UT) capsule Take by mouth Active aspirin 81 MG chewable tablet Chew 81 mg 1 (one) time each day Active glimepiride (AMARYL) 2 MG tablet TAKE 1 TABLET BY MOUTH TWICE DAILY WITH MEAL 2 Active Ozempic, 1 MG/DOSE, 4 MG/3ML solution pen-injector ADMINISTER 1 MG UNDER THE SKIN WEEKLY 2 Active Active Problems Problem Noted Date Diagnosed Date Stage 3b chronic kidney disease 07/17/2020 Orthostatic hypotension 07/15/2020 Hypertension 10/28/2013 Overview (07/17/2020): HYPERTENSION NOS Mixed hyperlipidemia 10/28/2013 Overview (07/17/2020): MIXED HYPERLIPIDEMIA Type 2 diabetes mellitus 10/28/2013 Overview (10/11/2020): DMII WO CMP UNCNTRLD Immunizations Immunization Administration Dates Next Due Influenza TIV (IM) 08/27/2021(Deferred: Patient Refused) Pneumococcal Conjugate 08/27/2021(Deferred: Amelia ent Refused) Family History Medical History Relation Comments Kidney cancer Neg Hx Social History Tobacco Use Types Packs/Day Years Used Date Smoking Tobacco: Never Smokeless Tobacco: Never Alcohol Use Standard Drinks/Week Comments Not Currently 0 (1 standard drink = 0.6 oz pur e alcohol) Comments Unknown Sex and Gender Information Value Date Recorded Sex Assigned at Not on file Legal Sex Female 9:20 AM [facility] Gender Identity Not on file Sexual Orientation [...] 9:34 AM CDT Height 162.6 cm (5' 4) 03/04/2022 9:34 AM CDT Body Mass Index 22.66 03/04/2022 9:34 AM CDT Plan of Treatment Health Maintenance Due Date Last Done Comments Pneumococcal PPSV23/PCV13 65 + Years / Low and Medium Risk (1 of 2 - PCV) 1998 Influenza Vaccine (#1) 2025 Insurance MEDICARE MEDICARE [facility] [employer] [place] [address] Care Teams Oil Well Services Supervisor Relationship Specialty Start Date End Date Daniel Potter DO [address] [place] [id number] PCP - General Internal Medicine 07/17/20
--- OUTSIDE RECORDS SUMMARY | 2025-03-14 12:40 | XMS_ITS | Clinical Summary ---
Author Organization [facility] [address] Address [address] [place] [address] Care Team Providers Care Machine Binder Stripper Name Role Phone RubensildaDaniel DO Primary Care Provider [phone] Allergies Active Allergy Reactions Criticality Noted Date [...] by mouth daily Active cholecalciferol (VITAMIN D-3) 94028 unit capsule Take 1 capsule (10,000 Units [...] TABLET(60 MG) BY MOUTH DAILY 90 tablet 5 Active Active Problems Problem Noted Date Diagnosed [...] Pure hypercholesterolemia 10/28/2013 Overview (09/18/2016): PURE HYPERCHOLESTEROLEM Medical History Medical History Date Comments Diabetes mellitus Diabetes Hypertension Hyperlipidemia Cataracts, bilateral Glaucoma Asthma Family History Medical History Relation Name Comments Diabetes Brother 1 Stroke Brother 2 Diabetes Brother 3 Emphysema Father Glioblastoma Father cause of Coronary artery disease Mother [place] i n her late 60's Pulmonary fibrosis [...] drink = 0.6 oz pur e alcohol) [facility] Utilities Answer Date Recorded In the past 12 months has [employer], oil, or water [employer] threatened to shut off services in your home? No 08/05/2023 Social Connection and Isolation Panel Answer Date Recorded In a typical week, how many times do you talk on the phone with family, friends, or neighbors? More than three times a week 08/05/2023 How often do you get togethe r with friends or relatives? More than three times a week 08/05/2023 How often do you attend [facility] or lutheran services? 1 to 4 times per year 08/05/2023 Do you belong to any clubs o r organizations such as jainism groups, unions, fraternal or athletic groups, or [...] place to sleep or slept in a group home (including now)? No 08/05/2023 Personal Safety Answer Date Recorded Have you ever been in or are you currently in a harmful physical or emotional relationship or is someone making you feel afraid or unsafe? Denies 08/01/2023 Comments Unknown Sex and Gender Information Value Date Recorded Sex Assigned at Not on file Legal Sex Female 12:24 AM STITCHER OPERATOR Gender Identity Not on file Sexual Orientation Not on file Obstetrics History Last Filed Vital Signs Vital Sign Reading Time Taken Comments Blood Pressure 112/68 07/06/2024 12:55 PM STITCHER OPERATOR Pulse 100 07/06/2024 12:55 PM STITCHER OPERATOR Temperature 36.6 C (97.9 F) 08/04/2023 7:55 AM STITCHER OPERATOR Respiratory Rate 18 08/04/2023 7:55 AM STITCHER OPERATOR Oxygen Saturation 99% 07/06/2024 12:55 PM STITCHER OPERATOR Inhaled Oxygen Concentration - - Weight 59.9 kg (132 lb) 07/06/2024 12:55 PM STITCHER OPERATOR Height 160 cm (5' 3) 07/06/2024 12:55 PM STITCHER OPERATOR Body Mass Index 23.38 07/06/2024 12:55 PM STITCHER OPERATOR Plan of Treatment Health Maintenance Due Date [...] Visit 65+ 2013 Hemoglobin A1C 02/01/2024 08/03/2023 Lipid Panel 08/01/2024 08/01/2023, 02/0 06/2023, 09/23/2022, Additional history exists Fall Risk Assessment 08/04/2024 08/04/2023 Covid-19 Vaccine (4 - 2024-2 6 season) 2025 05/26/2021, 10/16/2020, 09/25/2020 Influenza Vaccine (#1) 2025 eGFR 07/06/2025 07/06/2024, 02/2 , 08/03/2023, Additional history exists Procedures Procedure Name Priority Date/Time Associated Diagnosis Comments COMPREHENSIVE METABOLIC PANEL Routine 07/06/2024 GIMENEZ (dyspnea on exertion) HEMOGLOBIN A1C Timed 08/03/2023 8:49 AM STITCHER OPERATOR LIPID PANEL STAT 08/01/2023 9:37 PM STITCHER OPERATOR from Last 3 Months or Most Recently Relevant to Health Maintenance Results * (ABNORMAL) Comprehensive metabolic panel (07/06/2024) SCRIBED [...] - 36 Units/L EXTERNAL LAB SCRIBED eGFR N/A N/A EXTERNAL LAB SCRIBED eGFR 53 > or = 60 EXTERNAL LAB Blood 07/06/2024 [facility] Damari Avalos MD LAB BLOOD ORDERABLES nal Result EXTERNAL LAB * (ABNORMAL) Hemoglobin A1c (08/03/2023 8:49 AM STITCHER OPERATOR) Hgb A1C 7.2(H) 4.0 - 5.6 % [facility] Estimated Average Glucose 160 mg/dL [facility] Comment: The ADA recommends reporting an estimated Average Glucose (eAG) with all Hemoglobin A1c results using the equation derived from a study of 507 normal and diabetic adults. Minority populations were underrepresented and children were not included. (Diabetes Care 2020; 43(S1): S66-S76). The eAG is not equivalent to a fasting glucose. Blood 08/03/2023 8:49 AM STITCHER OPERATOR 08/03/2023 9:27 AM STITCHER OPERATOR us Twyla Castellon MD PhD LAB BLOOD ORDERABLES Final Result [facility] One [facility] [place] [address] * (ABNORMAL) Lipid panel (08/01/2023 9:37 PM STITCHER OPERATOR) Cholesterol 121 30 - 199 mg/dL [facility] Comment: Interpretive Data Ages [...] revised on 2018. Triglycerides 131 <=149 mg/dL [facility] Comment: Interpretive Data Ages [...] revised on 2018. HDL 37(L) >=40 mg/dL [facility] Comment: Interpretive Data Ages < or = [...] on 2018. LDL, calculated 58 <=129 mg/dL [facility] Comment: Interpretive Data Ages [...] revised on 2018. Non-HDL Cholesterol 84 mg/dL [facility] Comment: Interpretive Data Ages < or = [...] last revised on 2018. Chol/HDL ratio 3 [facility] Blood 08/01/2023 9:37 PM STITCHER OPERATOR 08/01/2023 10:16 PM STITCHER OPERATOR us Twyla Castellon MD PhD LAB BLOOD ORDERABLES Final Result [facility] [place] [address] from Last 3 Months or Most Recently Relevant to Health Maintenance Insurance [facility] MEDICARE [facility] MEDICARE [facility] MEDICARE Advance Directives For more information, please contact: [phone] * Full Code (Latest Code Status on File) Date Activated Date Inactivated Comments 08/01/2023 8:59 PM 08/04/2023 7:13 PM Care Teams Machine Binder Stripper Relationship Specialty Start Date End Date Daniel Potter DO PCP - General 11/20/10
[2025-03-14 19:18] LABS: Hematocrit 42.0 % (37.0-47.0); Hemoglobin 12.5 g/dL (12.0-15.0); Mean Corpuscular HGB Conc 29.8 g/dl (32-36); Mean Corpuscular Hemoglobin 24.2 pg (26-34); Mean Corpuscular Volume 81.2 fl (80-100); Platelet Count Result 131 k/mm3 (150-375); Red Blood Count 5.17 M/mm3 (4.2-5.4); White Blood Count 7.2 K/mm3 (4.5-10.0)
[2025-03-14 19:58] LABS: Total Protein Urine Random 15 mg/dL; Ur Ttl Prot Creatinine Ratio 0.20 mg/mg (0-0.20)
[2025-03-14 19:59] LABS: Albumin Level 3.9 g/dL (3.5-5.1); Anion Gap 6 mmol/L (4-12); Blood Urea Nitrogen 14 mg/dL (7-17); Calcium 9.2 mg/dL (8.4-10.2); Carbon Dioxide 28 mmol/L (22-30); Chloride 104 mmol/L (98-107); Estimated Glomerular Filt Rate 48; Glucose 112 mg/dL (65-110); Potassium 4.6 mmol/L (3.4-5.0); Sodium 138 mmol/L (137-145)
[2025-03-14 20:00] LABS: Parathyroid Intact 36.0 pg/mL (14.5-75.2)
== END 2025-03-14 12:38 | disposition home or self-care (01) ==
PROVIDERS: PCP Nurse Practitioner; Visit Provider Internal Medicine Nephrology
DX: N18.32 Chronic kidney disease, stage 3b (principal); E11.9 Type 2 diabetes mellitus without complications
CPT/HCPCS: 36415; 80069; 82570; 83970; 84156; 85027

== ENCOUNTER 2025-03-27 15:37 | Outpatient (CLI) | payer MEDICARE, SELFPAY ==
--- OUTSIDE RECORDS SUMMARY | 2025-03-27 17:11 | XMS_ITS | Clinical Summary ---
Author Organization [facility] [address] Address [address] [place] [address] Care Team Providers Care Calender Operator Name Role Phone Daniel Potter DO Primary Care Provider Allergies Active Allergy Reactions Criticality Noted Date [...] by mouth daily Active cholecalciferol (VITAMIN D-3) 95733 unit capsule Take 1 capsule (10,000 Units [...] Father cause of Coronary artery disease Mother [place] i n her late 60's Pulmonary fibrosis [...] = 0.6 oz pur e alcohol) [facility] Utilities Answer Date Recorded In the past 12 months has [employer], oil, or water [employer] threatened to shut off services in your [...] week 08/05/2023 How often do you attend [facility] or gnosticist services? 1 to 4 times per year 08/05/2023 Do you belong to any clubs o r organizations such as judaism groups, unions, fraternal or athletic groups, or [...] on file Legal Sex Female 12:24 AM CEMENTER Gender Identity Not on file Sexual Orientation Not on file Obstetrics History Last Filed Vital Signs Vital Sign Reading Time Taken Comments Blood Pressure 112/68 07/06/2024 12:55 PM CEMENTER Pulse 100 07/06/2024 12:55 PM CEMENTER Temperature 36.6 C (97.9 F) 08/04/2023 7:55 AM CEMENTER Respiratory Rate 18 08/04/2023 7:55 AM CEMENTER Oxygen Saturation 99% 07/06/2024 12:55 PM CEMENTER Inhaled Oxygen Concentration - - Weight 59.9 kg (132 lb) 07/06/2024 12:55 PM CEMENTER Height 160 cm (5' 3) 07/06/2024 12:55 PM CEMENTER Body Mass Index 23.38 07/06/2024 12:55 PM CEMENTER Plan of Treatment Health Maintenance Due Date [...] exertion) HEMOGLOBIN A1C Timed 08/03/2023 8:49 AM CEMENTER LIPID PANEL STAT 08/01/2023 9:37 PM CEMENTER from Last 3 Months or Most Recently [...] or = 60 EXTERNAL LAB Blood 07/06/2024 [facility] Damari Avalos MD LAB BLOOD ORDERABLES nal Result EXTERNAL LAB * (ABNORMAL) Hemoglobin A1c (08/03/2023 8:49 AM CEMENTER) Hgb A1C 7.2(H) 4.0 - 5.6 % [...] a fasting glucose. Blood 08/03/2023 8:49 AM CEMENTER 08/03/2023 9:27 AM CEMENTER us Twyla Castellon MD PhD LAB BLOOD ORDERABLES Final Result [facility] Department [place] [address] * (ABNORMAL) Lipid panel (08/01/2023 9:37 PM CEMENTER) Cholesterol 121 30 - 199 mg/dL [facility] Comment: Interpretive Data Ages < or [...] revised on 2018. Triglycerides 131 <=149 mg/dL [facility] Comment: Interpretive Data Ages < or [...] revised on 2018. HDL 37(L) >=40 mg/dL [facility] Comment: Interpretive Data Ages < or [...] on 2018. LDL, calculated 58 <=129 mg/dL [facility] Comment: Interpretive Data Ages < or [...] revised on 2018. Non-HDL Cholesterol 84 mg/dL [facility] Comment: Interpretive Data Ages < or [...] last revised on 2018. Chol/HDL ratio 3 [facility] Blood 08/01/2023 9:37 PM CEMENTER 08/01/2023 10:16 PM CEMENTER us Twyla Castellon MD PhD LAB BLOOD ORDERABLES Final Result [facility] Department [place] [address] from Last 3 Months or Most Recently Relevant to Health Maintenance Insurance [facility] MEDICARE [facility] MEDICARE [facility] MEDIC[facility] Advance Directives For more information, please contact: [phone] * Full Code (Latest Code Status on File) Date Activated Date Inactivated Comments 08/01/2023 8:59 PM 08/04/2023 7:13 PM Care Teams Calender Operator Relationship Specialty Start Date End Date Daniel Potter DO PCP - General 11/20/10
[2025-03-27 18:47] LABS: HIV 1/2 Ab P24 Ag Result Negative (Negative)
== END 2025-03-27 15:38 | disposition home or self-care (01) ==
LOC: ANHGOSHLAB 15:38
PROVIDERS: PCP Nurse Practitioner; Visit Provider Nurse Practitioner
DX: D69.6 Thrombocytopenia, unspecified (principal); Z11.4 Encounter for screening for human immunodeficiency virus [HIV]
CPT/HCPCS: 36415; 86703; 86803; G0432

== ENCOUNTER 2025-04-27 14:17 | Outpatient (CLI) | payer MEDICARE, SELFPAY ==
--- OUTSIDE RECORDS SUMMARY | 2010-02-25 07:00 | XMS_ITS | Continuity of Care Document ---
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 Name Role Phone Jenni Turcios Unavailable Unavailable Procedures Procedure Date Office/outpatient Visit, Est Office/outpatient Visit, Est Visual Field Examination(s) Office/outpatient Visit, Est Office/outpatient Visit, Est Visual Field Examination(s) Office/outpatient Visit, Est Office/outpatient Visit, Est Corneal Pachymetry Fundus Photography W/ Report Visual Field Examination(s) Office/outpatient Visit, Est Eye Exam, New Patient Advance Directives Directive Yes / No Effective Date File Name No Information Encounters Encounter Description Practice Location Reason(s) For Visit Diagnoses Date Provider Providers Copied on Encounter Office/[place]pat [place], [facility] [address], [place], [place], [address], [place] tel:[phone] [facility] No Information 0 Karolina Arteaga. [address], [place], [address], [place]. tel:[phone] Office/outpat ient Visit, [facility] [address], [place], [place], [address], [place] tel:[phone] [facility] No Information -201 0 Karolina [place] [facility] , [address], [place], [facility], . tel:[phone] Referring Provider: Jenni Ghosh, [address], [place], [facility]. tel:[phone] [facility], [address] [place] [address] [address], [place], [place], [address], tel:[phone] [facility] No Information -201 0 Karolina [place] [facility] , [address], [place], [facility], . tel:[phone] Referring Provider: Jenni Ghosh, [address] [facility] [address], [place], [facility]. tel:[phone] Office/outpat ient [place], [facility] [address] [place] [address] [address], [place], [place], [address], tel:[phone] [facility] No Information Sep-0 1-200 9 Karolina [place] [facility] [address], [place], [facility], . tel:[phone] Office/outpat ient Visit, [facility], [address] [place] [address] [address], [place], [place], [address], [place] tel:[phone] [facility] No Information May-0 1-200 9 Karolina Villa [address] [facility] , [address], [place], [facility], . tel:[phone] [facility], [address] [place] [address] [address], [place], [place], [address], tel:[phone] [facility] No Information Dec-2 6-200 8 Turcios Jenni. [address] , [address], [place], [facility], . tel:[phone] Referring Provider: Jenni Ghosh, [address], [place], [facility]. tel:[phone] Office/outpat ient Visit, [facility], [address] [place] [address] [address], [place], [place], [address], [place] tel:[phone] [facility] No Information 8 Karolina Arteaga. [address] , [address], [place], [facility], [place]. tel:[phone] Office/outpat ient Visit, [facility], [address] [place] [address] [address], [place], [place], [address], [place] tel:[phone] [facility] No Information 8 Karolina [facility]aga. [facility] , [address], [place], [facility], [place]. tel:[phone] Referring Provider: Jenni Ghosh, [address], [place], [facility]. tel:[phone] [facility], [address] [place] [address] [address], [place], [place], [address], [place] tel:[phone] [facility] No Information 7 Karolina Arteaga. [address], [place], [facility], [place]. tel:[phone] Referring Provider: Jenni Ghosh, [address], [place], [facility]. tel:[phone] Office/outpat ient Visit, [facility], [address] [place] [address] [address], [place], [place], [address], [place] tel:[phone] [facility] No Information 7 Karolina Arteaga. [address] , [address], [place], [address], [place]. tel:[phone] [facility], [address], [place], [place], [address], [place] tel:[phone] [facility] No Information 7 Karolina Arteaga. [address] [facility] , [address], [place], [address], [place]. tel:[phone] Family History Family Member Type Diagnosis Age At Onset No Information Payers Payer name Insurance type Covered constitution party [facility] [id number] Social History Type Description Quantity Date Captured Comments Sex Female Smoking Status No Information Chief Complaint And Reason For Visit No Information Reason For Referral Reason For Referral No Information History Of Present Illness Encounter Date Complaint History Of Prese nt Illness No Information Functional Status Date Functional Assessmen t No Information Instructions Date Instruction Additional Infor mation No Information Assessments Type Assessment Date No Information Patient Care Teams Name Effective Dates (start - stop) Status Members No Information
--- OUTSIDE RECORDS SUMMARY | 2010-02-25 07:00 | XMS_ITS | Continuity of Care Document ---
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 [address] , [address], [place], [address], [place]. tel:[phone] Office/outpat ient Visit, [facility], [address], [place], [place], [address], [place] tel:[phone] [facility] No Information -201 0 Karolina [place] [facility] , [address], [place], [facility], . tel:[phone] Referring Provider: Jenni Ghosh, [address], [place], [facility]. tel:[phone] [facility], [address] [place] [address] [address], [place], [place], [address], tel:[phone] [facility] No Information -201 0 Karolina [place] [facility] , [address], [place], [facility], . tel:[phone] Referring Provider: Jenni Ghosh, [address] [facility] [address], [place], [facility]. tel:[phone] Office/outpat ient Visit, [facility], [address] [place] [address] [address], [place], [place], [address], tel:[phone] [facility] No Information Sep-0 1-200 9 Karolina [place] [facility] , [address], [place], [facility], . tel:[phone] Office/outpat ient Visit, [facility], [address] [place] [address] [address], [place], [place], [address], [place] tel:[phone] [facility] No Information May-0 1-200 9 Karolina [address] [facility] , [address], [place], [facility], . tel:[phone] [facility], [address] [place] [address] [address], [place], [place], [address], tel:[phone] [facility] No Information Dec-2 6-200 8 Turcios Jenni. [address] , [address], [place], [facility], . tel:[phone] Referring Provider: Jenni Ghosh, [address], [place], [facility]. tel:[phone] Office/outpat ient Visit, [facility], [address] [place] [address] [address], [place], [place], [address], [place] tel:[phone] [facility] No Information 8 Karolina Arteaga. [address] , [address], [place], [facility], [place]. tel:[phone] Office/outpat ient Visit, [facility], [address] [place] [address] [address], [place], [place], [address], [place] tel:[phone] [facility] No Information 8 Karolina Arteaga. [facility] , [address], [place], [facility], [place]. tel:[phone] Referring Provider: Jenni Ghosh, [address], [place], [facility]. tel:[phone] [facility], [address] [place] [address] [address], [place], [place], [address], [place] tel:[phone] [facility] No Information 7 Karolina Arteaga. [address] , [address], [place], [facility], [place]. tel:[phone] Referring Provider: Jenni Ghosh, [address], [place], [facility]. tel:[phone] Office/outpat ient Visit, [facility], [address] [place] [address] [address], [place], [place], [address], [place] tel:[phone] [facility] No Information 7 Karolina Arteaga. [address] , [address], [place], [address], [place]. tel:[phone] [facility], [address], [place], [place], [address], [place] tel:[phone] [facility] No Information 7 Karolina Arteaga. [address] [facility] , [address], [place], [address], [place]. tel:[phone] Family History Family Member Type Diagnosis Age At Onset No Information Payers Payer name Insurance type Covered libertarian ID [facility] [id number] Social History Type Description Quantity Date Captured [...]
--- OUTSIDE RECORDS SUMMARY | 2010-02-25 07:00 | XMS_ITS | Continuity of Care Document ---
Author Organization [facility] Address [address] [place] [address] Phone Care Team Providers Care Sharemilker Name Role Phone Jenni Turcios Unavailable Unavailable [...] Providers Copied on Encounter Office/outpat ient Visit, [facility] [address], [place], [place], [address], [place] tel:[phone] [facility] No Information 0 Karolina Arteaga. [address] , [address], [place], [address], [place]. tel:[phone] Office/outpat ient Visit, [facility], [address], [place], [place], [address], [place] tel:[phone] [facility] No Information -201 0 Karolina [place] [facility] , [address], [place], [facility], . tel:[phone] Referring Provider: Jenni Ghosh, [address], [place], [facility]. tel:[phone] [facility], [address] [place] [address] [address], [place], [place], [address], tel:[phone] [facility] No Information -201 0 Karolina [place] [facility] , [address], [place], [facility], . tel:[phone] Referring Provider: Jenni Ghosh, [address] [facility] [address], [place] [facility]. tel:[phone] Office/outpat ient Visit, [facility], [address] [place] [address] [address], [place], [place], [address], tel:[phone] [facility] No Information Sep-0 1-200 9 Karolina [place] [facility] , [address], [place], [facility], . tel:[phone] Office/outpat ient Visit, [facility], [address] [place] [address] [address], [place], [place], [address], [place] tel:[phone] [facility] No Information May-0 1-200 9 Karolina Villa [address] [facility] , [address], [place], [facility], . tel:[phone] [facility], [address] [place] [address] [address], [place], [place], [address], tel:[phone] [facility] No Information Dec-2 6-200 8 Turcios Jenni. [address] , [address], [place] [facility], . tel:[phone] Referring Provider: Jenni Ghosh, [address], [place] [facility]. tel:[phone] Office/outpat ient Visit, [facility], [address] [place] [address] [address], [place], [place], [address], [place] tel:[phone] [facility] No Information 8 Karolina Arteaga. [address] , [address], [place] [facility] [place], [place]. tel:[phone] Office/outpat ient Visit, [facility], [address] [place] [address] [address], [place], [place], [address], [place] tel:[phone] [facility] No Information 8 Karolina Arteaga. [facility] , [address], [place] [facility], [place]. tel:[phone] Referring Provider: Jenni Ghosh, [address], [place], [facility]. tel:[phone] [facility], [address] [place] [address] [address], [place], [place], [address], [place] tel:[phone] [facility] No Information 7 Karolina Arteaga. [address] , [address], [place] [facility], [place]. tel:[phone] Referring Provider: Jenni Ghosh, [address], [place] [facility]. tel:[phone] Office/outpat ient Visit, [facility], [address] [place] [address] [address], [place], [place], [address], [place] tel:[phone] [facility] No Information 7 Karolina Arteaga. [address] , [address], [place], [address], [place]. tel:[phone] [facility], [address], [place], [place], [address], [place] tel:[phone] [facility] No Information 7 Karolina Arteaga. [address] [facility] , [address], [place], [address], [place]. tel:[phone] Family History Family Member Type Diagnosis Age At Onset No Information Payers Payer name Insurance type Covered green party ID [facility] [id number] Social History Type Description Quantity Date Captured [...]
--- NOTE | ~2025-04-27 | MM_ITS ---
CORRECTED REPORT corrected ordering provider to Trisha Sands APRN This report was recreated on 04/30/2025. Original report was AL ARCHITECT EXAMINATION: MM screening wilma BI w ronny HISTORY: Screening TECHNIQUE: Craniocaudal and mediolateral oblique 3-D tomosynthesis images were obtained and synthetic 2-D images were generated. CAD analysis was submitted and interpreted. COMPARISON: Comparison to multiple prior studies sequentially, with oldest reviewed study dated 06/09/2018. BREAST PARENCHYMAL COMPOSITION: Dense: The breasts are heterogeneously dense, which may obscure small masses FINDINGS: There is no evidence of suspicious mass, calcification, or architectural distortion to suggest malignancy in either breast. There has been no suspicious interval change. IMPRESSION: 1. No mammographic evidence of malignancy. 2. Recommend routine screening mammography in one year. BI-RADS Category 1: Negative Reviewed, dictated and finalized at location B. AL ARCHITECT
--- NOTE | ~2025-04-27 | DEXA_ITS ---
Bone Density Report Name: JUAN C GUTIERREZ Age: 75 Sex: Female Ethnicity: White Date of : 1950 Indication: osteopenia; height loss; asthma or emphysema; Referring Provider: SAMANTHA TAMEZ Study: Bone densitometry was performed. Exam Date: April 27, 2025 Accession number: [id number] Bone Density: Region BMD T-score Z-score Classification AP Spine(L1-L4) 1.047 0.0 2.5 Normal Femoral Neck (Left) 0.598 -2.3 -0.1 Osteopenia Total Hip (Left) 0.696 -2.0 -0.1 Osteopenia Femoral Neck (Right) 0.573 -2.5 -0.3 Osteoporosis Total Hip (Right) 0.703 -2.0 -0.1 Osteopenia Total Hip Mean 0.699 -2.0 -0.1 Osteopenia World Health Organization criteria for BMD impression classify patients as: Normal (T-score at or above -1.0), Osteopenia (T-score between -1.0 and -2.5), or Osteoporosis (T-score at or below -2.5). 10-year Fracture Risk: FRAX not reported because: Some T-score for Spine Total or Hip Total or Femoral Neck at or below -2.5 Previous Exams: Region Exam Age BMD T-score BMD Change BMD Change Date g/cm2 vs Baseline vs Previous AP Spine (L1-L4) 04/27/2025 75 1.047 0.0 -0.008 (-0.8%) 0.099 (10.5%)* 05/19/2022 72 0.948 -0.9 -0.108 (-10.2% -0.108 (-10.2% 02/16/2020 69 1.056 0.1 Total Hip(Left) 04/27/2025 75 0.696 -2.0 0.006 (0.9%) 0.023 (3.4%) 05/19/2022 72 0.673 -2.2 -0.016 (-2.4%) -0.016 (-2.4%) 02/16/2020 69 0.689 -2.1 Total Hip(Right) 04/27/2025 75 0.703 -2.0 -0.044 (-5.9%) 0.047 (7.1%)* 05/19/2022 72 0.656 -2.3 -0.091 (-12.2% -0.091 (-12.2% 02/16/2020 69 0.747 -1.6 *Denotes significance at 95% confidence level, LSC for AP Spine = 0.022 g/cm2, LSC for Total Hip = 0.027 g/cm2 Clinical Information Provided by Patient: Has used the following medications: Fosamax (i.e. alendronate), Calcium Has the following medical conditions: Asthma or Emphysema Patient maximum height was 64 Menopause Age: 48 No regular weight bearing exercise Drinks caffeinated beverages Onset of menses at age 12 Number of children 0 Missed period for more than 6 months in a row Impression: The patient has osteoporosis, based on the Right Femoral Neck T-score. No significant bone loss was observed. Discussion: INCREASED RISK OF FRACTURE. BONE DENSITY IS UNDESIRABLY LOW AT ONE OR MORE SKELETAL SITES, CONSISTENT WITH POSTMENOPAUSAL OSTEOPOROSIS. This patient's lowest T-score meets the World Health Organization's (WHO) criteria for osteoporosis at one or more sites (T-score -2.5 or below). In untreated patients, the risk of osteoporotic fracture increases approximately two-fold for each 1.0 SD decrease in T-score. Low bone density is not the only risk factor for fracture; also consider factors such as patient's age, frailty or poor health, risk of falling, risk of injury, previous osteoporotic fracture, family history of osteoporosis, cigarette smoking, low body weight, etc. Not everyone with low bone mineral density has osteoporosis; osteomalacia and other metabolic bone disorders should also be considered. Patients who have osteoporosis should be evaluated for specific diseases and conditions (secondary causes) that may cause or contribute to bone loss. The [place] [employer] Endocrinologists (AACE) and National Osteoporosis Foundation (NOF) recommend pharmacologic intervention for all postmenopausal women whose T-score is in this range. The patient should follow a healthful lifestyle (good nutrition with adequate calcium and vitamin D, and appropriate weight-bearing exercise). Follow-Up: Consider a repeat BMD and Vertebral Fracture Assessment (VFA) exam in 2 years or sooner if medically necessary, to reassess this patient's status. Reported by: GENET on 04/27/2025 3:03:00 PM. Reviewed, dictated and finalized at location A.
--- OUTSIDE RECORDS SUMMARY | 2025-04-27 18:43 | XMS_ITS | Clinical Summary ---
Author Organization [facility] Address [address] [place] [address] Phone Care Team Providers Care Senior Pricing Analyst Name Role Phone Daniel Potter DO Primary Care Provider [phone] Allergies Active Allergy Reactions Criticality Noted Date [...] D3 600-400 MG-UNIT tablet Take according to [id number]-[id number] r package directions 8 Active Cholecalciferol (Vitamin [...] on file Legal Sex Female 9:20 AM [facility] Gender Identity Not on file Sexual Orientation [...] Influenza Vaccine (#1) 2025 Insurance MEDICARE MEDICARE [facility] [employer] [place] [address] Care Teams Senior Pricing Analyst Relationship Specialty Start Date End Date Daniel Potter DO [address] [place] [id number] PCP - General Internal Medicine 07/17/20
--- OUTSIDE RECORDS SUMMARY | 2025-04-27 18:44 | XMS_ITS | Clinical Summary ---
Author Organization [facility] Cindy vogt [facility] Address [address] [place] [address] Care Team Providers Care Orchestra Teacher Name Role Phone Unavailable Primary Care Provider Unavailabl e Social History Tobacco Use Types Packs/Day Years Used Date Smoking Tobacco: Never Assessed Comments Unknown Sex and Gender Information Value Date Recorded Sex Assigned at Not on file Legal Sex Female 11:07 AM CDT Gender Identity Not on file Sexual Orientation Not on file Plan of Treatment Upcoming Encounters Date Type Department Care Team (Late st Contact Info) Description 08/15/2025 10:30 AM SOLUTION DEVELOPER Office Visit [facility] Oncology and Hematology - [place] [address] [facility] [address] [place] [address] Josesito Silverio MD [address] [facility] [address] [place] [address] Health Maintenance Due Date Last Done Comments DTAP/TDAP/TD VACCINES (1 - Tdap) 1967 PNEUMOCOCCAL VACCINE 50+ YEARS (1 of 1 - PCV) 03/01/19 98 ZOSTER VACCINE (1 of 2) 1998 OSTEOPOROSIS SCREENING 2013 RSV VACCINE (60+ or ) (1 - 1-dose 75+ series) 2023 INFLUENZA VACCINE (#1) 2025 Insurance [employer]ET[employer] PPO [facility]
--- OUTSIDE RECORDS SUMMARY | 2025-04-27 18:44 | XMS_ITS | Clinical Summary ---
Author Organization [facility] [address] Address [address] [place] [address] Care Team Providers Care Interlocking And Signal Mechanic Name Role Phone Daniel Potter DO Primary Care Provider [phone] Allergies Active Allergy Reactions Criticality Noted Date Comments Gluten Other (See comments) 09/04/2024 Lincomycin Hcl Other (See comments) Low 07/15/2020 [...] by mouth daily Active cholecalciferol (VITAMIN D-3) 14086 unit capsule Take 1 capsule (10,000 Units [...] BY MOUTH DAILY 90 tablet 5 Active ConnectSolutionsStyle Jair 3 Plus Sensor device CHANGE SENSOR EVERY 15 DAYS 5 Active Active Problems Problem Noted Date Diagnosed Date Palpitations 04/11/2025 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 09/25/19 [...] Encounters Date Type Department Care Team Description 04/11/2025 10:30 AM CDT Ancillary Procedure [facility] Cardiology [address] [place] [phone] Palpitations 04/11/2025 9:45 AM CDT Office Visit [facility] Cardiology [address] [place] [phone] Sharad Ortiz MD Palpitations (Primary Dx) from Last 3 Months Medical History Medical History Date Comments Diabetes mellitus Diabetes Hypertension Hyperlipidemia Cataracts, bilateral Glaucoma Asthma Family History Medical History Relation Name Comments Diabetes Brother 1 Stroke Brother 2 Diabetes Brother 3 Emphysema Father Glioblastoma Father cause of Coronary artery disease Mother PA i n her late 60's Pulmonary fibrosis [...] drink = 0.6 oz pur e alcohol) [facility] Utilities Answer Date Recorded In the past 12 months has th e electric, gas, oil, or water company [...] often do you attend chur ch or yazidi services? 1 to 4 times per year 08/05/2023 Do you belong to any clubs o r organizations such as mosque groups, unions, fraternal or athletic groups, or [...] Average Number of Drinks Not on file Frequency of Binge Drinking Not on file [...] place to sleep or slept in a custodial (including now)? No 08/05/2023 Personal Safety Answer Date Recorded Have you ever been in or are you currently in a harmful physical or emotional relationship or is someone making you feel afraid or unsafe? Denies 08/01/2023 Comments Unknown Sex and Gender Information Value Date Recorded Sex Assigned at Not on file Legal Sex Female 12:24 AM MACHINE BILLER Gender Identity Female 04/04/2025 6:13 PM CDT Sexual Orientation Straight 04/04/2025 6: 13 PM CDT Last Filed Vital Signs Vital Sign Reading Time Taken Comments Blood Pressure 122/64 04/11/2025 9:26 AM CDT Pulse 92 04/11/2025 9:26 AM CDT Temperature 36.6 C (97.9 F) 08/04/2023 7:55 AM MACHINE BILLER Respiratory Rate 16 04/11/2025 9:26 AM CDT Oxygen Saturation 98% 04/11/2025 9:26 AM CDT Inhaled Oxygen Concentration - - Weight 60.8 kg (134 lb) 04/11/2025 9:26 AM CDT Height 160 cm (5' 3) 04/11/2025 9:26 AM CDT Body Mass Index 23.74 04/11/2025 9:26 AM CDT Plan of Treatment Health Maintenance Due Date Last Done Comments Albumin Creatinine Ratio, Urine 1950 Depression Screening 1950 Hepatitis C Screening 1950 Osteoporosis Screening-Bone Density Scan 1950 Dilated Eye Exam 1950 Foot Exam 1950 Hepatitis B Screening 1966 Pneumococcal vaccine 65+ (1 of 2 - PCV) 1967 Zoster Vaccine (1 of 2) 1998 Well Visit 65+ 2013 Hemoglobin A1C 02/01/2024 08/03/2023 Lipid Panel 08/01/2024 08/01/2023, 02/0 06/2023, 09/23/2022, Additional history exists Fall Risk Assessment 08/04/2024 08/04/2023 Covid-19 Vaccine (4 - 2024-2 6 season) 2025 05/26/2021, 10/16/2020, 09/25/2020 Influenza Vaccine (#1) 2025 eGFR 07/06/2025 07/06/2024, 02/, 08/03/2023, Additional history exists DTaP/Tdap/Td Vaccine (2 - Td or Tdap) 05/17/2034 05/17/2024 Procedures Procedure Name Priority Date/Time Associated Diagnosis Comments COMPREHENSIVE METABOLIC PANEL Routine 07/06/2024 GIMENEZ (dyspnea on exertion) HEMOGLOBIN A1C Timed 08/03/2023 8:49 AM MACHINE BILLER LIPID PANEL STAT 08/01/2023 9:37 PM MACHINE BILLER from Last 3 Months or Most Recently [...] * (ABNORMAL) Hemoglobin A1c (08/03/2023 8:49 AM MACHINE BILLER) Hgb A1C 7.2(H) 4.0 - 5.6 % [facility] Estimated Average Glucose 160 mg/dL [facility] Comment: The ADA recommends reporting an estimated Average Glucose (eAG) with all Hemoglobin A1c results using the equation derived from a study of 507 normal and diabetic adults. Minority populations were underrepresented and children were not included. (Diabetes Care 2020; 43(S1): S66-S76). The eAG is not equivalent to a fasting glucose. Blood 08/03/2023 8:49 AM MACHINE BILLER 08/03/2023 9:27 AM MACHINE BILLER us Twyla Castellon MD PhD LAB BLOOD ORDERABLES Final Result Performing Organization Address City/[facility] de Phone Number [facility] [place] [address] * (ABNORMAL) Lipid panel (08/01/2023 9:37 PM MACHINE BILLER) Cholesterol 121 30 - 199 mg/dL [facility] Comment: Interpretive Data Ages < or [...] revised on 2018. Triglycerides 131 <=149 mg/dL [facility] Comment: Interpretive Data Ages < or [...] on 2018. HDL 37(L) >=40 mg/dL [facility] Comment: Interpretive Data Ages < [...] on 2018. LDL, calculated 58 <=129 mg/dL [facility] Comment: Interpretive Data Ages < or [...] revised on 2018. Non-HDL Cholesterol 84 mg/dL [facility] Comment: Interpretive Data Ages < [...] last revised on 2018. Chol/HDL ratio 3 [facility] Blood 08/01/2023 9:37 PM MACHINE BILLER 08/01/2023 10:16 PM MACHINE BILLER us Twyla Castellon MD PhD LAB BLOOD ORDERABLES Final Result [facility] [place] [address] from Last 3 Months or Most Recently Relevant to Health Maintenance Insurance [employer] MEDICARE [facility] MEDICARE [employer] MEDICARE Advance Directives For more information, please contact: [phone] * Full Code (Latest Code Status on File) Date Activated Date Inactivated Comments 08/01/2023 8:59 PM 08/04/2023 7:13 PM Care Teams Interlocking And Signal Mechanic Relationship Specialty Start Date End Date Daniel Potter DO PCP - General 11/20/10
== END 2025-04-27 14:18 | disposition home or self-care (01) ==
PROVIDERS: PCP Nurse Practitioner; Visit Provider Internal Medicine Endocrinology, Diabetes & Metabolism
DX: Z12.31 Encounter for screening mammogram for malignant neoplasm of breast (principal); M81.0 Age-related osteoporosis without current pathological fracture; M85.852 Other specified disorders of bone density and structure, left thigh; M85.851 Other specified disorders of bone density and structure, right thigh
CPT/HCPCS: 77063; 77067; 77080